=== PATIENT | male | born 1950 | race Caucasian/White ===

== ENCOUNTER 2023-03-15 15:10 | Observation (INO) ==
[2023-03-15] MEDS ORDERED: SODIUM CHLORIDE 0.9% 1,000 ML IV SCH (15:45)
--- NOTE | 2023-03-15 16:01 | XRay Report ---
XR chest 1V portable CLINICAL HISTORY: weakness COMPARISON STUDY: No previous studies for comparison. FINDINGS: Right PICC tip is within the SVC. No pneumothorax or pleural effusion is present. There is no consolidation. No evidence for pulmonary edema. Mild cardiomegaly. Mediastinal contours are otherw ise normal. IMPRESSION: No acute cardiopulmonary findings. Mild cardiomegaly. ACT 112: Negative or not required by law. Electronically signed by: Kevin Noel M.D. 03/15/2023 4:00 PM
[2023-03-15 16:22] LABS: Basophils # (auto) 0.03 K/uL (0.00-0.20); Basophils % (auto) 0.5 %; Eosinophils # (auto) 0.62 K/uL (0.00-0.50); Hematocrit (blood only) 32.2 % (42.0-52.0); Hemoglobin 11.3 g/dl (14.0-18.0); Immature Granulocytes # (auto) 0.03 K/uL (0.01-0.20); Immature Granulocytes % (auto) 0.5 %; Lymphocytes # (auto) 1.68 K/uL (1.20-3.40); Lymphocytes % (auto) 27.2 %; Mean Corpuscular Hemoglobin 30.7 pg (25.0-34.0); Mean Corpuscular Hgb Conc 35.1 g/dL (32.0-36.0); Mean Corpuscular Volume 87.5 fL (80.0-100.0); Mean Platelet Volume 9.2 fL (9.4-12.4); Monocytes # (auto) 0.58 K/uL (0.11-0.59); Monocytes % (auto) 9.4 %; Neutrophils # (auto) 3.24 K/uL (1.40-6.50); Neutrophils % (auto) 52.4 %; Platelet Count 133 K/uL (130-400); RDW Coefficient of Variation 12.9 % (11.5-14.5); RDW Standard Deviation 41.2 fL (36.4-46.3); Red Blood Count 3.68 M/uL (4.70-6.10); White Blood Count 6.18 K/ul (4.8-10.8)
[2023-03-15 16:42] LABS: Albumin Globulin Ratio 1.8 (0.9-2); Albumin Level 3.9 gm/dl (3.4-5.0); BUN Creatinine Ratio 19.5 (10-20); Bilirubin,Total 0.8 mg/dl (0.2-1.0); Creatinine Clr Calc Pharmacy 58.6 ml/min; Est GFR (Non-African American) 54.4 ml/min; Globulin 2.2 gm/dl (2.5-4.0); Magnesium 1.8 mg/dl (1.7-2.4); Total Protein 6.1 gm/dl (6.0-8.3)
--- NOTE | 2023-03-15 16:46 | CT Scan Report ---
CT OF THE HEAD WITHOUT CONTRAST CLINICAL HISTORY: Altered mental status. COMPARISON STUDY: No previous studies for comparison. CT DOSE: 705.24 mGy.cm TECHNIQUE: Helical axial images of the head were obtained without IV contrast. Automated exposure con trol was utilized for the study. A dose lowering technique was utilized adhering to the principles o f ALARA. FINDINGS: No acute intracranial hemorrhage, midline shift or mass effect is present. The ventricular system is unremarkable. The basal cisterns are patent. No extra-axial collections are present. There are no findings to suggest acute dural sinus thrombosis or acute territorial infarct. There is no acu te calvarial fracture. Small mucous retention cysts within the maxillary sinuses are incidentally not ed. There are trace secretions within the left sphenoid sinus. IMPRESSION: No acute intracranial findings. ACT 112: Negative or not required by law. Electronically signed by: Kevin Noel M.D. 03/15/2023 4:44 PM
[2023-03-15 16:47] LABS: Troponin I High Sensitivity 2.6 pg/ml (0-20)
[2023-03-15 16:57] LABS: Thyroid Stimulating Hormone 0.784 uIu/ml (0.300-4.500)
[2023-03-15 17:41] LABS: Appearance Urine Clear (Clear); Bacteria Urine Automated Negative (Negative); Bilirubin Urine Negative (Negative); Blood Urine Negative (Negative); Color Urine Yellow; Glucose Urine UA Negative (Negative); Ketones Urine Negative (Negative); Leukocyte Esterase Urine Trace (Negative); Nitrite Urine Negative (Negative); Protein Urine Negative (Negative); RBC Urine Automated 0-4 /hpf (0-4); Urobilinogen Urine Negative (Negative); pH Urine 6.5 (4.5-7.5)
[2023-03-15 17:56] LABS: Sperm Urine Present (None Prsent)
--- NOTE | 2023-03-15 18:14 | Emergency Department Note ---
Impression & Plan Acute alteration in mental status ED Provider Note CHIEF COMPLAINT: Confusion HISTORY OF PRESENT ILLNESS: This 73-year-old male patient past medical history of cellulitis/osteomyelitis of the right fourth toe presents to the emergency department with complaints of altered mental status per family. They state his speech has sounded slurred and he seems delirious at times. The patient states he sometimes thinks that his daughter is present when she is not. Patient was admitted to the [facility] about a month ago and has been on IV ertapenem via PICC line for the last 4 weeks. He has 2 weeks remaining of the course. Patient's son states they have noticed this behavior off-and-on for the last several days. Patient has great difficulty sleeping, states he walks, exercises and is fairly aggressive when he is trying to sleep. He did fall out of bed several times but he is uncertain if he hit his head. This has been going on for many years. Patient has no specific complaints at this time. REVIEW OF SYSTEMS: A review of systems was performed with positives and pert inent negatives listed in the history of present illness. 10 systems were reviewed and are otherwise negative. ALLERGIES: see below MEDICATIONS: see below PMH: see below SOCIAL HISTORY: see below DDx: Intracranial hemorrhage, stroke, metabolic abnormality, encephalopathy, dehydration, DELORIS, UTI among others PHYSICAL EXAM: Vital signs reviewed. General: Well-appearing 73-year-old male, in no significant distress. HEENT: No scleral icterus, PERRLA, neck supple. Atraumatic. Dry mucous membranes. Cardiovascular: Regular rate and rhythm, no extra sounds. Pulmonary: Clear to auscultation bilaterally, normal work of breathing. Abdomen: Soft, nontender, nondistended, positive bowel sounds. Musculoskeletal: Atraumatic, no peripheral edema. Neurologic: Patient awake alert and oriented x 3, speech is clear. Cranial nerves II through XII are grossly intact. Skin: Warm, dry, no rash EMERGENCY DEPARTMENT COURSE/MDM: Patient was evaluated and appeared to be in no significant distress. IV access was obtained and laboratory work was drawn. CT imaging of the head was performed and is negative for acute intracranial abnormality. Chest x-ray was performed and is negative for acute pathology. Laboratory work is fairly reassuring, UA is negative. We are unable to get records from clinic to the outside hospital at this hour. Given the alteration in mental status without clear etiology and recent admission/long-term IV antibiotic use, patient will be evaluated by the hospitalist service for further work-up and management. Patient and family were made aware of the plan and a greed. MONITORING: An order for cardiac monitoring was placed and the patient is noted to be in a NSR at 64 beats per minute. RADIOLOGY: Chest x-ray to my interpretation reveals no evidence of focal lung consolidation or failure, otherwise defer to radiology's overread. Head CT to my review and radiologist interpretation reveals no evidence of acute intracranial abnormality EKG: To my interpretation reveals normal sinus rhythm with first degree AV block at 60 bpm. No PVC, no PAC. Normal ST segments. QTc is 440. DISPOSITION:Admit Past Med/Surg History Medical History Anxiety CAD (coronary artery disease) Depression Gout HTN (hypertension) SHANNON (obstructive sleep apnea) Osteomyelitis REM sleep behavior disorder Surgical History H/O Spinal surgery Hx of tonsillectomy S/P appendectomy Stented coronary artery 2009 Family History Other Cancer Heart disease Prostate cancer Social History Hx Alcohol Use: No (quit ) Hx Substance Use: No Communication Ability: Effective Current Living Situation: Alone Current Living Situation Comment: home health and help from family Assistive Devices: Cane and Walker Allergies Allergies Allergy/AdvReac Type Severity Reaction Status Date / Time moxifloxacin [From Avelox] Allergy Unknown Unknown Verified 03/15/23 23:42 Home Meds Home Medications Medication Instructions Recorded Confirmed allopurinol 300 mg tablet 300 mg PO DAILY 03/15/23 03/15/23 aspirin 81 mg tablet 81 mg PO DAILY 03/15/23 03/15/23 atorvastatin 40 mg tablet 40 mg PO HS 03/15/23 03/15/23 bupropion HCl 100 mg tablet 100 mg PO DAILY 03/15/23 03/15/23 docusate sodium 100 mg capsule 100 mg PO DAILY PRN Constipation 03/15/23 03/15/23 ertapenem 1 gram intravenous 1 g IV DAILY 03/15/23 03/15/23 solution ibuprofen 800 mg tablet 800 mg PO TID pain 03/15/23 03/15/23 lisinopril 20 1 tab PO BID 03/15/23 03/15/23 mg-hydrochlorothiazide 12.5 mg tablet metoprolol succinate 50 mg 50 mg PO DAILY 03/15/23 03/15/23 tablet,extended release 24 hr omeprazole 40 mg capsule,delayed 40 mg PO DAILY 03/15/23 03/15/23 release venlafaxine 37.5 mg 37.5 mg PO DAILY 03/15/23 03/15/23 capsule,extended release 24 hr Results & Data (ED) Vital Signs Vital Signs - 24 hr 03/15/23 15:21 03/15/23 15:25 03/15/23 15:25 Temperature 36.4 C L Temperature Source Temporal Artery Scan Pulse Rate 66 Pulse Rate [Right Finger] 61 Pulse Rate from SpO2 Sensor Pulse Rhythm Pulse Rhythm [Right Finger] Regular Pulse Strength [Right Finger] Normal Respiratory Rate 18 16 Respiratory Effort / Characteristics Non-Labored Non-Labored Spontaneous Respiratory Depth Normal Normal Respiratory Pattern Regular Blood Pressure 126/79 Blood Pressure [Left Arm] 146/91 H Blood Pressure Mean 94 Blood Pressure Mean [Left Arm] 109 Blood Pressure Position [Left Arm] Lying Pulse Oximetry 94 96 97 Oxygen Delivery Method Room Air Room Air Room Air Oxygen Flow Rate 0 Sepsis Recent Fever Within 48 Hours No Sepsis New/Unexplained Change in Mental Status No Sepsis Action Taken by Nursing No Action Required 03/15/23 16:00 03/15/23 15:50 03/15/23 15:52 Temperature Temperature Source Pulse Rate 64 57 L 59 L Pulse Rate [Right Finger] Pulse Rate from SpO2 Sensor 61 Pulse Rhythm Regular Pulse Rhythm [Right Finger] Pulse Strength [Right Finger] Respiratory Rate 16 Respiratory Effort / Characteristics Respiratory Depth Respiratory Pattern Blood Pressure Blood Pressure [Left Arm] Blood Pressure Mean Blood Pressure Mean [Left Arm] Blood Pressure Position [Left Arm] Pulse Oximetry 97 98 Oxygen Delivery Method Room Air Oxygen Flow Rate Sepsis Recent Fever Within 48 Hours Sepsis New/Unexplained Change in Mental Status Sepsis Action Taken by Nursing 03/15/23 16:00 03/15/23 16:10 03/15/23 16:20 Temperature Temperature Source Pulse Rate 61 60 59 L Pulse Rate [Right Finger] Pulse Rate from SpO2 Sensor 61 60 59 L Pulse Rhythm Pulse Rhythm [Right Finger] Pulse Strength [Right Finger] Respiratory Rate 16 14 16 Respiratory Effort / Characteristics Respiratory Depth Respiratory Pattern Blood Pressure 141/83 H Blood Pressure [Left Arm] Blood Pressure Mean 102 Blood Pressure Mean [Left Arm] Blood Pressure Position [Left Arm] Pulse Oximetry 97 95 97 Oxygen Delivery Method Oxygen Flow Rate Sepsis Recent Fever Within 48 Hours Sepsis New/Unexplained Change in Mental Status Sepsis Action Taken by Nursing 03/15/23 16:36 03/15/23 16:37 03/15/23 16:40 Temperature Temperature Source Pulse Rate 61 59 L 59 L Pulse Rate [Right Finger] Pulse Rate from SpO2 Sensor 59 L 60 Pulse Rhythm Pulse Rhythm [Right Finger] Pulse Strength [Right Finger] Respiratory Rate 11 L 17 16 Respiratory Effort / Characteristics Respiratory Depth Respiratory Pattern Blood Pressure 158/69 H Blood Pressure [Left Arm] Blood Pressure Mean 98 Blood Pressure Mean [Left Arm] Blood Pressure Position [Left Arm] Pulse Oximetry 97 97 Oxygen Delivery Method Oxygen Flow Rate Sepsis Recent Fever Within 48 Hours Sepsis New/Unexplained Change in Mental Status Sepsis Action Taken by Nursing 03/15/23 16:50 03/15/23 17:00 03/15/23 17:10 Temperature Temperature Source Pulse Rate 60 61 61 Pulse Rate [Right Finger] Pulse Rate from SpO2 Sensor 59 L 58 L Pulse Rhythm Pulse Rhythm [Right Finger] Pulse Strength [Right Finger] Respiratory Rate 16 20 19 Respiratory Effort / Characteristics Respiratory Depth Respiratory Pattern Blood Pressure 116/76 Blood Pressure [Left Arm] Blood Pressure Mean 89 Blood Pressure Mean [Left Arm] Blood Pressure Position [Left Arm] Pulse Oximetry 98 96 Oxygen Delivery Method Oxygen Flow Rate Sepsis Recent Fever Within 48 Hours Sepsis New/Unexplained Change in Mental Status Sepsis Action Taken by Nursing 03/15/23 17:20 Temperature Temperature Source Pulse Rate 57 L Pulse Rate [Right Finger] Pulse Rate from SpO2 Sensor 58 L Pulse Rhythm Pulse Rhythm [Right Finger] Pulse Strength [Right Finger] Respiratory Rate 17 Respiratory Effort / Characteristics Respiratory Depth Respiratory Pattern Blood Pressure Blood Pressure [Left Arm] Blood Pressure Mean Blood Pressure Mean [Left Arm] Blood Pressure Position [Left Arm] Pulse Oximetry 97 Oxygen Delivery Method Oxygen Flow Rate Sepsis Recent Fever Within 48 Hours Sepsis New/Unexplained Change in Mental Status Sepsis Action Taken by Half-Way Medications Current Medication List: was personally reviewed by me Laboratory Data Attestation: I reviewed the patient's lab results. 03/15/23 15:50 03/15/23 15:50 Lab Results 03/15/23 03/15/2303/15/23 Range/Units 15:50 15:50 16:34 WBC 6.18 (4.8-10.8) K/ul RBC 3.68 L (4.70-6.10) M/uL Hgb 11.3 L (14.0-18.0) g/dl Hct 32.2 L (42.0-52.0) % MCV 87.5 (80.0-100.0) fL MCH 30.7 (25.0-34.0) pg MCHC 35.1 (32.0-36.0) g/dL RDW Std Deviation 41.2 (36.4-46.3) fL RDW Coeff of Favio 12.9 (11.5-14.5) % Plt Count 133 (130-400) K/uL MPV 9.2 L (9.4-12.4) fL Immature Gran % (Auto) 0.5 % Neut % (Auto) 52.4 % Lymph % (Auto) 27.2 % [place] % (Auto) 9.4 % Eos % (Auto) 10.0 % Baso % (Auto) 0.5 % Neut # (Auto) 3.24 (1.40-6.50) K/uL Lymph # (Auto) 1.68 (1.20-3.40) K/uL [place] # (Auto) 0.58 (0.11-0.59) K/uL Eos # (Auto) 0.62 H (0.00-0.50) K/uL Baso # (Auto) 0.03 (0.00-0.20) K/uL Immature Gran # (Auto) 0.03 (0.01-0.20) K/uL ESR (0-20) mm/hr ABG pH ABG pCO2 ABG pO2 ABG HCO3 ABG O2 Saturation ABG Base Excess Werner Test Barometric Pressure Oxygen Given Sodium 138 (136-145) mmol/L Potassium 4.0 (3.5-5.1) mmol/L Chloride 104 (98-107) mmol/L Carbon Dioxide 28 (21-32) mmol/L Anion Gap 6 (3-11) BUN 25 H (6-23) mg/dl Creatinine 1.28 (0.6-1.4) mg/dl Est Cr Clr Drug Dosing 58.6 ml/min Est GFR ( Amer) 63.0 ml/min Est GFR (Non-Af Amer) 54.4 ml/min BUN/Creatinine Ratio 19.5 (10-20) Glucose 97 (70-99(Fasting)) mg/dl Calcium 9.0 (8.6-10.3) mg/dl Ionized Calcium (1.12-1.32) mmol/L Phosphorus (2.5-4.9) mg/dl Magnesium 1.8 (1.7-2.4) mg/dl Total Bilirubin 0.8 (0.2-1.0) mg/dl AST 16 (13-39) U/L ALT 18 (7-52) U/L Alkaline Phosphatase 131 H (34-104) U/L Ammonia (18-72) umol/L Troponin I High Sens 2.6 (0-20) pg/ml C-Reactive Protein (0-0.5) mg/dl Total Protein 6.1 (6.0-8.3) gm/dl Albumin 3.9 (3.4-5.0) gm/dl Globulin 2.2 L (2.5-4.0) gm/dl Albumin/Globulin Ratio 1.8 (0.9-2) Vitamin B12 (180-914) pg/ml Folate (>5.38) ng/ml TSH 0.784 (0.300-4.500) uIu/ml Urine Color Urine Appearance (Clear) Urine pH (4.5-7.5) Ur Specific [place] (1.000-1.030) Urine Protein (Negative) Urine Glucose (UA) (Negative) Urine Ketones (Negative) Urine Blood (Negative) Urine Nitrite (Negative) Urine Bilirubin (Negative) Urine Urobilinogen (Negative) Ur Leukocyte Esterase (Negative) Urine WBC (Auto) (0-5) /hpf Urine RBC (Auto) (0-4) /hpf U Hyaline Cast (Auto) (0-5) /lpf U Epithel Cells (Auto) (0-5) /lpf Urine Bacteria (Auto) (Negative) Urine Sperm (None Prsent) SARS-CoV-2 (PCR) NEGATIVE (Negative) 03/15/23 03/15/23 03/15/23 Range/Units 17:17 18:35 18:35 WBC (4.8-10.8) K/ul RBC (4.70-6.10) M/uL Hgb (14.0-18.0) g/dl Hct (42.0-52.0) % MCV (80.0-100.0) fL MCH (25.0-34.0) pg MCHC (32.0-36.0) g/dL RDW Std Deviation (36.4-46.3) fL RDW Coeff of Favio (11.5-14.5) % Plt Count (130-400) K/uL MPV (9.4-12.4) fL Immature Gran % (Auto) % Neut % (Auto) % Lymph % (Auto) % [place] % (Auto) % Eos % (Auto) % Baso % (Auto) % Neut # (Auto) (1.40-6.50) K/uL Lymph # (Auto) (1.20-3.40) K/uL [place] # (Auto) (0.11-0.59) K/uL Eos # (Auto) (0.00-0.50) K/uL Baso # (Auto) (0.00-0.20) K/uL Immature Gran # (Auto) (0.01-0.20) K/uL ESR (0-20) mm/hr ABG pH Cancelled ABG pCO2 Cancelled ABG pO2 Cancelled ABG HCO3 Cancelled ABG O2 Saturation Cancelled ABG Base Excess Cancelled Werner Test Cancelled Barometric Pressure Cancelled Oxygen Given Cancelled Sodium (136-145) mmol/L Potassium (3.5-5.1) mmol/L Chloride (98-107) mmol/L Carbon Dioxide (21-32) mmol/L Anion Gap (3-11) BUN (6-23) mg/dl Creatinine (0.6-1.4) mg/dl Est Cr Clr Drug Dosing ml/min Est GFR ( Amer) ml/min Est GFR (Non-Af Amer) ml/min BUN/Creatinine Ratio (10-20) Glucose (70-99(Fasting)) mg/dl Calcium (8.6-10.3) mg/dl Ionized Calcium (1.12-1.32) mmol/L Phosphorus (2.5-4.9) mg/dl Magnesium (1.7-2.4) mg/dl Total Bilirubin (0.2-1.0) mg/dl AST (13-39) U/L ALT (7-52) U/L Alkaline Phosphatase (34-104) U/L Ammonia 39.0 (18-72) umol/L Troponin I High Sens (0-20) pg/ml C-Reactive Protein (0-0.5) mg/dl Total Protein (6.0-8.3) gm/dl Albumin (3.4-5.0) gm/dl Globulin (2.5-4.0) gm/dl Albumin/Globulin Ratio (0.9-2) Vitamin B12 (180-914) pg/ml Folate (>5.38) ng/ml TSH (0.300-4.500) uIu/ml Urine Color Yellow Urine Appearance Clear (Clear) Urine pH 6.5 (4.5-7.5) Ur Specific [place] 1.010 (1.000-1.030) Urine Protein Negative (Negative) Urine Glucose (UA) Negative (Negative) Urine Ketones Negative (Negative) Urine Blood Negative (Negative) Urine Nitrite Negative (Negative) Urine Bilirubin Negative (Negative) Urine Urobilinogen Negative (Negative) Ur Leukocyte Esterase Trace H (Negative) Urine WBC (Auto) 5-10 H (0-5) /hpf Urine RBC (Auto) 0-4 (0-4) /hpf U Hyaline Cast (Auto) 1-5 (0-5) /lpf U Epithel Cells (Auto) 10-20 H (0-5) /lpf Urine Bacteria (Auto) Negative (Negative) Urine Sperm Present A (None Prsent) SARS-CoV-2 (PCR) (Negative) 03/15/23 03/16/23 03/16/23 Range/Units 19:43 07:10 07:10 WBC (4.8-10.8) K/ul RBC (4.70-6.10) M/uL Hgb (14.0-18.0) g/dl Hct (42.0-52.0) % MCV (80.0-100.0) fL MCH (25.0-34.0) pg MCHC (32.0-36.0) g/dL RDW Std Deviation (36.4-46.3) fL RDW Coeff of Favio (11.5-14.5) % Plt Count (130-400) K/uL MPV (9.4-12.4) fL Immature Gran % (Auto) % Neut % (Auto) % Lymph % (Auto) % [place] % (Auto) % Eos % (Auto) % Baso % (Auto) % Neut # (Auto) (1.40-6.50) K/uL Lymph # (Auto) (1.20-3.40) K/uL [place] # (Auto) (0.11-0.59) K/uL Eos # (Auto) (0.00-0.50) K/uL Baso # (Auto) (0.00-0.20) K/uL Immature Gran # (Auto) (0.01-0.20) K/uL ESR 11 (0-20) mm/hr ABG pH 7.42 ABG pCO2 42 ABG pO2 78 L ABG HCO3 27 H ABG O2 Saturation 97.0 H ABG Base Excess 2.4 H Werner Test Pos Barometric Pressure Oxygen Given ROOM AIR Sodium 140 (136-145) mmol/L Potassium 3.9 (3.5-5.1) mmol/L Chloride 106 (98-107) mmol/L Carbon Dioxide 27 (21-32) mmol/L Anion Gap 7 (3-11) BUN 23 (6-23) mg/dl Creatinine 1.16 (0.6-1.4) mg/dl Est Cr Clr Drug Dosing 64.6 ml/min Est GFR ( Amer) 71.0 ml/min Est GFR (Non-Af Amer) 61.3 ml/min BUN/Creatinine Ratio 19.8 (10-20) Glucose 98 (70-99(Fasting)) mg/dl Calcium 9.2 (8.6-10.3) mg/dl Ionized Calcium (1.12-1.32) mmol/L Phosphorus (2.5-4.9) mg/dl Magnesium (1.7-2.4) mg/dl Total Bilirubin (0.2-1.0) mg/dl AST (13-39) U/L ALT (7-52) U/L Alkaline Phosphatase (34-104) U/L Ammonia (18-72) umol/L Troponin I High Sens (0-20) pg/ml C-Reactive Protein < 0.50 (0-0.5) mg/dl Total Protein (6.0-8.3) gm/dl Albumin (3.4-5.0) gm/dl Globulin (2.5-4.0) gm/dl Albumin/Globulin Ratio (0.9-2) Vitamin B12 (180-914) pg/ml Folate (>5.38) ng/ml TSH (0.300-4.500) uIu/ml Urine Color Urine Appearance (Clear) Urine pH (4.5-7.5) Ur Specific [place] (1.000-1.030) Urine Protein (Negative) Urine Glucose (UA) (Negative) Urine Ketones (Negative) Urine Blood (Negative) Urine Nitrite (Negative) Urine Bilirubin (Negative) Urine Urobilinogen (Negative) Ur Leukocyte Esterase (Negative) Urine WBC (Auto) (0-5) /hpf Urine RBC (Auto) (0-4) /hpf U Hyaline Cast (Auto) (0-5) /lpf U Epithel Cells (Auto) (0-5) /lpf Urine Bacteria (Auto) (Negative) Urine Sperm (None Prsent) SARS-CoV-2 (PCR) (Negative) 03/16/23 03/17/23 03/17/23 Range/Units 07:10 06:02 06:02 WBC 7.17 6.95 (4.8-10.8) K/ul RBC 3.71 L 3.68 L (4.70-6.10) M/uL Hgb 11.3 L 11.2 L (14.0-18.0) g/dl Hct 31.9 L 32.5 L (42.0-52.0) % MCV 86.0 88.3 (80.0-100.0) fL MCH 30.5 30.4 (25.0-34.0) pg MCHC 35.4 34.5 (32.0-36.0) g/dL RDW Std Deviation 40.1 41.3 (36.4-46.3) fL RDW Coeff of Favio 12.9 12.7 (11.5-14.5) % Plt Count 151 126 L (130-400) K/uL MPV 9.4 9.2 L (9.4-12.4) fL Immature Gran % (Auto) 0.1 % Neut % (Auto) 53.2 % Lymph % (Auto) 27.3 % [place] % (Auto) 7.9 % Eos % (Auto) 11.1 % Baso % (Auto) 0.4 % Neut # (Auto) 3.69 (1.40-6.50) K/uL Lymph # (Auto) 1.90 (1.20-3.40) K/uL [place] # (Auto) 0.55 (0.11-0.59) K/uL Eos # (Auto) 0.77 H (0.00-0.50) K/uL Baso # (Auto) 0.03 (0.00-0.20) K/uL Immature Gran # (Auto) 0.01 (0.01-0.20) K/uL ESR (0-20) mm/hr ABG pH ABG pCO2 ABG pO2 ABG HCO3 ABG O2 Saturation ABG Base Excess Werner Test Barometric Pressure Oxygen Given Sodium 140 (136-145) mmol/L Potassium 3.8 (3.5-5.1) mmol/L Chloride 106 (98-107) mmol/L Carbon Dioxide 27 (21-32) mmol/L Anion Gap 7 (3-11) BUN 20 (6-23) mg/dl Creatinine 1.20 (0.6-1.4) mg/dl Est Cr Clr Drug Dosing 62.5 ml/min Est GFR ( Amer) 68.1 ml/min Est GFR (Non-Af Amer) 58.8 ml/min BUN/Creatinine Ratio 16.7 (10-20) Glucose 98 (70-99(Fasting)) mg/dl Calcium 9.2 (8.6-10.3) mg/dl Ionized Calcium (1.12-1.32) mmol/L Phosphorus 3.0 (2.5-4.9) mg/dl Magnesium 1.9 (1.7-2.4) mg/dl Total Bilirubin 1.0 (0.2-1.0) mg/dl AST 17 (13-39) U/L ALT 16 (7-52) U/L Alkaline Phosphatase 123 H (34-104) U/L Ammonia (18-72) umol/L Troponin I High Sens (0-20) pg/ml C-Reactive Protein (0-0.5) mg/dl Total Protein 6.0 (6.0-8.3) gm/dl Albumin 3.9 (3.4-5.0) gm/dl Globulin 2.1 L (2.5-4.0) gm/dl Albumin/Globulin Ratio 1.9 (0.9-2) Vitamin B12 (180-914) pg/ml Folate (>5.38) ng/ml TSH (0.300-4.500) uIu/ml Urine Color Urine Appearance (Clear) Urine pH (4.5-7.5) Ur Specific [place] (1.000-1.030) Urine Protein (Negative) Urine Glucose (UA) (Negative) Urine Ketones (Negative) Urine Blood (Negative) Urine Nitrite (Negative) Urine Bilirubin (Negative) Urine Urobilinogen (Negative) Ur Leukocyte Esterase (Negative) Urine WBC (Auto) (0-5) /hpf Urine RBC (Auto) (0-4) /hpf U Hyaline Cast (Auto) (0-5) /lpf U Epithel Cells (Auto) (0-5) /lpf Urine Bacteria (Auto) (Negative) Urine Sperm (None Prsent) SARS-CoV-2 (PCR) (Negative) 03/17/23 03/17/23 Range/Units 06:02 06:02 WBC (4.8-10.8) K/ul RBC (4.70-6.10) M/uL Hgb (14.0-18.0) g/dl Hct (42.0-52.0) % MCV (80.0-100.0) fL MCH (25.0-34.0) pg MCHC (32.0-36.0) g/dL RDW Std Deviation (36.4-46.3) fL RDW Coeff of Favio (11.5-14.5) % Plt Count (130-400) K/uL MPV (9.4-12.4) fL Immature Gran % (Auto) % Neut % (Auto) % Lymph % (Auto) % [place] % (Auto) % Eos % (Auto) % Baso % (Auto) % Neut # (Auto) (1.40-6.50) K/uL Lymph # (Auto) (1.20-3.40) K/uL [place] # (Auto) (0.11-0.59) K/uL Eos # (Auto) (0.00-0.50) K/uL Baso # (Auto) (0.00-0.20) K/uL Immature Gran # (Auto) (0.01-0.20) K/uL ESR (0-20) mm/hr ABG pH ABG pCO2 ABG pO2 ABG HCO3 ABG O2 Saturation ABG Base Excess Werner Test Barometric Pressure Oxygen Given Sodium (136-145) mmol/L Potassium (3.5-5.1) mmol/L Chloride (98-107) mmol/L Carbon Dioxide (21-32) mmol/L Anion Gap (3-11) BUN (6-23) mg/dl Creatinine (0.6-1.4) mg/dl Est Cr Clr Drug Dosing ml/min Est GFR ( Amer) ml/min Est GFR (Non-Af Amer) ml/min BUN/Creatinine Ratio (10-20) Glucose (70-99(Fasting)) mg/dl Calcium (8.6-10.3) mg/dl Ionized Calcium 1.23 (1.12-1.32) mmol/L Phosphorus (2.5-4.9) mg/dl Magnesium (1.7-2.4) mg/dl Total Bilirubin (0.2-1.0) mg/dl AST (13-39) U/L ALT (7-52) U/L Alkaline Phosphatase (34-104) U/L Ammonia (18-72) umol/L Troponin I High Sens (0-20) pg/ml C-Reactive Protein (0-0.5) mg/dl Total Protein (6.0-8.3) gm/dl Albumin (3.4-5.0) gm/dl Globulin (2.5-4.0) gm/dl Albumin/Globulin Ratio (0.9-2) Vitamin B12 268 (180-914) pg/ml Folate 15.80 (>5.38) ng/ml TSH (0.300-4.500) uIu/ml Urine Color Urine Appearance (Clear) Urine pH (4.5-7.5) Ur Specific [place] (1.000-1.030) Urine Protein (Negative) Urine Glucose (UA) (Negative) Urine Ketones (Negative) Urine Blood (Negative) Urine Nitrite (Negative) Urine Bilirubin (Negative) Urine Urobilinogen (Negative) Ur Leukocyte Esterase (Negative) Urine WBC (Auto) (0-5) /hpf Urine RBC (Auto) (0-4) /hpf U Hyaline Cast (Auto) (0-5) /lpf U Epithel Cells (Auto) (0-5) /lpf Urine Bacteria (Auto) (Negative) Urine Sperm (None Prsent) SARS-CoV-2 (PCR) (Negative) Administered Medications Acetaminophen (Acetaminophen 325 Mg Tab) 650 mg PO Q4H PRN PRN Reason: Pain or Fever Stop: 04/14/23 21:43 Last Admin: 03/21/23 08:28 Dose: 650 mg Documented By: [id number] Admin: 03/19/23 23:56 Dose: 650 mg Documented By: Admin: 03/18/23 08:48 Dose: 650 mg Documented By: AUSTIN Albuterol (Albut/Ipratrop 3mg/0.5mg Neb 3 Ml Vial) 3 ml NEB Q4R PRN; Protocol PRN Reason: Shortness Of Breath Or Wheezing Stop: 04/18/23 22:59 Last Admin: 03/20/23 00:29 Dose: 3 ml Documented By: ABDOULAYE Allopurinol (Allopurinol 300 Mg Tab) 300 mg PO DAILY MARCIN Stop: 04/15/23 08:59 Last Admin: 03/22/23 08:28 Dose: 300 mg Documented By: JOSE R Admin: 03/21/23 08:29 Dose: 300 mg Documented By: [id number] Admin: 03/20/23 08:47 Dose: 300 mg Documented By: Admin: 03/19/23 07:49 Dose: 300 mg Documented By: Admin: 03/18/23 08:49 Dose: 300 mg Documented By: Admin: 03/17/23 08:34 Dose: 300 mg Documented By: Admin: 03/16/23 08:11 Dose: 300 mg Documented By: STEPH Aspirin (Aspirin 81 Mg Ectab) 81 mg PO DAILY MARCIN Stop: 04/15/23 08:59 Last Admin: 03/22/23 08:28 Dose: 81 mg Documented By: JOSE R Admin: 03/21/23 08:29 Dose: 81 mg Documented By: [id number] Admin: 03/20/23 08:47 Dose: 81 mg Documented By: Admin: 03/19/23 07:49 Dose: 81 mg Documented By: Admin: 03/18/23 08:50 Dose: 81 mg Documented By: Admin: 03/17/23 08:34 Dose: 81 mg Documented By: Admin: 03/16/23 08:10 Dose: 81 mg Documented By: STEPH Atorvastatin Calcium (Atorvastatin 40 Mg Tab) 40 mg PO HS MARCIN Stop: 04/14/23 21:43 Last Admin: 03/21/23 20:36 Dose: 40 mg Documented By: Admin: 03/20/23 20:41 Dose: 40 mg Documented By: Admin: 03/19/23 20:58 Dose: 40 mg Documented By: Admin: 03/18/23 20:18 Dose: 40 mg Documented By: Admin: 03/17/23 22:15 Dose: 40 mg Documented By: Admin: 03/16/23 21:39 Dose: 40 mg Documented By: Admin: 03/16/23 01:00 Dose: 40 mg Documented By: ABEL Benzonatate (Benzonatate 100 Mg Capsule) 100 mg PO TID MARCIN Stop: 04/19/23 15:29 Last Admin: 03/22/23 14:15 Dose: 100 mg Documented By: JOSE R Admin: 03/22/23 08:28 Dose: 100 mg Documented By: JOSE R Admin: 03/21/23 20:35 Dose: 100 mg Documented By: Admin: 03/21/23 14:36 Dose: Not Given Documented By: [id number] Admin: 03/21/23 08:29 Dose: 100 mg Documented By: [id number] Admin: 03/20/23 20:41 Dose: 100 mg Documented By: Admin: 03/20/23 16:55 Dose: 100 mg Documented By: AUSTIN Bupropion HCl (Bupropion Hcl 100 Mg Tablet) 100 mg PO DAILY MARCIN Stop: 04/20/23 11:14 Last Admin: 03/22/23 08:28 Dose: 100 mg Documented By: JOSE R Admin: 03/21/23 12:36 Dose: 100 mg Documented By: [id number] Cyanocobalamin (Cyanocobalamin (B-12) 500 Mcg Tablet) 1,000 mcg PO QAM MARCIN Stop: 04/17/23 08:59 Last Admin: 03/22/23 08:28 Dose: 1,000 mcg Documented By: JOSE R Admin: 03/21/23 08:29 Dose: 1,000 mcg Documented By: [id number] Admin: 03/20/23 08:48 Dose: 1,000 mcg Documented By: Admin: 03/19/23 07:50 Dose: 1,000 mcg Documented By: Admin: 03/18/23 08:49 Dose: 1,000 mcg Documented By: AUSTIN Docusate Sodium (Docusate Sodium 100 Mg Cap) 100 mg PO DAILY PRN PRN Reason: Constipation Stop: 04/14/23 21:43 Last Admin: 03/21/23 08:29 Dose: 100 mg Documented By: [id number] Enoxaparin Sodium (Enoxaparin Inj 40 Mg/0.4 Ml Syr) 40 mg SQ Q24H MARCIN Stop: 04/15/23 08:59 Last Admin: 03/17/23 08:35 Dose: 40 mg Documented By: Admin: 03/16/23 08:11 Dose: 40 mg Documented By: STEPH Ergocalciferol (Ergocalciferol 50,000 Units 1250 Mcg Cap) 50,000 units PO Q7D@0900 MARCIN Stop: 04/18/23 08:59 Last Admin: 03/19/23 07:50 Dose: 50,000 units Documented By: AUSTIN Guaifenesin (Guaifenesin 600 Mg Tabcr) 600 mg PO Q12 MARCIN Stop: 04/18/23 13:59 Last Admin: 03/22/23 08:29 Dose: 600 mg Documented By: Admin: 03/21/23 20:36 Dose: 600 mg Documented By: Admin: 03/21/23 08:29 Dose: 600 mg Documented By: [id number] Admin: 03/20/23 20:41 Dose: 600 mg Documented By: Admin: 03/20/23 08:48 Dose: 600 mg Documented By: Admin: 03/19/23 20:57 Dose: 600 mg Documented By: Admin: 03/19/23 14:41 Dose: 600 mg Documented By: AUSTIN Heparin Sodium (Beef Lung) (Heparin 10 Unit/Ml 5 Ml Flush) 5 ml FLUSH PRN PRN PRN Reason: Flush Stop: 04/16/23 10:24 Last Admin: 03/22/23 10:51 Dose: 5 ml Documented By: Admin: 03/21/23 08:29 Dose: 5 ml Documented By: [id number] Hydrochlorothiazide (Hydrochlorothiazide 25 Mg Tab) 12.5 mg PO QAM MARCIN Stop: 04/16/23 08:59 Last Admin: 03/17/23 09:32 Dose: 12.5 mg Documented By: POLLO Lisinopril (Lisinopril 20 Mg Tab) 20 mg PO BID MARCIN Stop: 04/15/23 08:59 Last Admin: 03/22/23 08:29 Dose: 20 mg Documented By: JOSE R Admin: 03/21/23 20:37 Dose: 20 mg Documented By: Admin: 03/17/23 22:14 Dose: Not Given Documented By: Admin: 03/17/23 08:33 Dose: 20 mg Documented By: Admin: 03/16/23 21:39 Dose: 20 mg Documented By: Admin: 03/16/23 08:11 Dose: 20 mg Documented By: STEPH Melatonin (Melatonin 3 Mg Tab) 3 mg PO HS MARCIN Stop: 04/20/23 20:59 Last Admin: 03/21/23 20:36 Dose: 3 mg Documented By: HUMBERTO Menthol (Cough Drop (Sugar Free) Sebas 24 Sebas/1 Box) 1 sebas BUCCAL Q2H PRN PRN Reason: Sore Throat Stop: 04/19/23 15:41 Last Admin: 03/20/23 15:59 Dose: 1 sebas Documented By: AUSTIN Metoprolol Succinate (Metoprolol Succ 50mg Ext Rel Tab) 50 mg PO DAILY MARCIN Stop: 04/15/23 08:59 Last Admin: 03/22/23 08:29 Dose: 50 mg Documented By: JOSE R Admin: 03/21/23 08:29 Dose: 50 mg Documented By: [id number] Admin: 03/20/23 08:48 Dose: 50 mg Documented By: Admin: 03/19/23 07:49 Dose: 50 mg Documented By: Admin: 03/18/23 08:55 Dose: 50 mg Documented By: Admin: 03/17/23 08:34 Dose: 50 mg Documented By: Admin: 03/16/23 08:11 Dose: 50 mg Documented By: STEPH Pantoprazole Sodium (Pantoprazole 40 Mg Tab) 40 mg PO DAILY MARCIN Stop: 04/15/23 08:59 Last Admin: 03/22/23 08:29 Dose: 40 mg Documented By: JOSE R Admin: 03/21/23 08:30 Dose: 40 mg Documented By: [id number] Admin: 03/20/23 08:49 Dose: 40 mg Documented By: Admin: 03/19/23 07:49 Dose: 40 mg Documented By: Admin: 03/18/23 08:49 Dose: 40 mg Documented By: Admin: 03/17/23 08:33 Dose: 40 mg Documented By: Admin: 03/16/23 08:10 Dose: 40 mg Documented By: STEPH Polyethylene Glycol (Polyethylene (Miralax) 17 Gm Pack) 17 gm PO DAILY PRN PRN Reason: Constipation Stop: 04/14/23 21:43 Last Admin: 03/21/23 08:30 Dose: 17 gm Documented By: [id number] Sodium Chloride (Sodium Chloride 0.65% Na Soln 45 Ml ([place])) 1 sprays NA BID MARCIN Stop: 04/19/23 15:44 Last Admin: 03/22/23 08:29 Dose: 1 sprays Documented By: JOSE R Admin: 03/21/23 20:37 Dose: 1 sprays Documented By: Admin: 03/21/23 08:30 Dose: 1 sprays Documented By: [id number] Admin: 03/20/23 20:41 Dose: 1 sprays Documented By: Admin: 03/20/23 16:55 Dose: 1 sprays Documented By: AUSTIN Venlafaxine HCl (Venlafaxine Hcl Xr 37.5 Mg Capxr) 37.5 mg PO DAILY MARCIN Stop: 04/15/23 08:59 Last Admin: 03/22/23 08:29 Dose: 37.5 mg Documented By: JOSE R Admin: 03/21/23 08:30 Dose: 37.5 mg Documented By: [id number] Admin: 03/20/23 08:49 Dose: 37.5 mg Documented By: Admin: 03/19/23 07:49 Dose: 37.5 mg Documented By: Admin: 03/18/23 08:49 Dose: 37.5 mg Documented By: Admin: 03/17/23 08:33 Dose: 37.5 mg Documented By: Admin: 03/16/23 08:11 Dose: 37.5 mg Documented By: STEPH Discontinued Medications Bupropion HCl (Bupropion Hcl 100 Mg Tablet) 100 mg PO DAILY MARCIN Stop: 04/15/23 08:59 Last Admin: 03/17/23 08:34 Dose: 100 mg Documented By: Admin: 03/16/23 08:11 Dose: 100 mg Documented By: STEPH Haloperidol Lactate (Haloperidol Lactate 5 Mg/Ml 1 Ml Vial) 2.5 mg IM NOW STA Stop: 03/20/23 23:32 Last Admin: 03/21/23 00:08 Dose: 2.5 mg Documented By: VIV Hydralazine HCl (Hydralazine Hcl 20 Mg/Ml Vial) 5 mg IV NOW ONE Stop: 03/21/23 07:35 Last Admin: 03/21/23 08:23 Dose: 5 mg Documented By: [id number] Hydroxyzine HCl (Hydroxyzine Hcl 25 Mg Tab) 25 mg PO NOW STA Stop: 03/21/23 07:36 Last Admin: 03/21/23 08:29 Dose: 25 mg Documented By: [id number] Sodium Chloride (Nss) 1,000 mls @ 125 mls/hr IV .Q8H MARCIN Stop: 03/15/23 23:44 Last Infusion: 03/15/23 23:55 Dose: 0 mls/hr Documented By: Admin: 03/15/23 16:42 Dose: 125 mls/hr Documented By: LAZARA Lactated Ringer's (Lr) 1,000 mls @ 100 mls/hr IV .Q10H MARCIN Stop: 03/16/23 07:43 Last Infusion: 03/16/23 08:21 Dose: 0 mls/hr Documented By: Admin: 03/16/23 02:07 Dose: 100 mls/hr Documented By: ABEL Ertapenem 1,000 mg/ Syringe 10 mls @ 2 mls/min IV Q24H MARCIN Stop: 04/27/23 08:59 Last Admin: 03/17/23 08:35 Dose: 2 mls/min Documented By: Admin: 03/16/23 08:14 Dose: 2 mls/min Documented By: STEPH Sodium Chloride (Nss) 1,000 mls @ 100 mls/hr IV .Q10H ONE Stop: 03/18/23 05:53 Last Infusion: 03/18/23 07:30 Dose: 0 mls/hr Documented By: Admin: 03/17/23 22:15 Dose: 100 mls/hr Documented By: ABEL Magnesium Sulfate/Dextrose (Magnesium Sulfate / D5w) 1 gm in 100 mls @ 50 mls/hr IV ONE ONE Stop: 03/17/23 21:54 Last Infusion: 03/18/23 00:35 Dose: 0 mls/hr Documented By: Admin: 03/17/23 22:15 Dose: 50 mls/hr Documented By: ABEL Sodium Chloride (Nss) 1,000 mls @ 80 mls/hr IV .[id number] MARCIN Stop: 04/18/23 13:59 Last Infusion: 03/20/23 15:46 Dose: 0 mls/hr Documented By: Admin: 03/20/23 14:02 Dose: 80 mls/hr Documented By: Infusion: 03/20/23 14:02 Dose: 80 mls/hr Documented By: Admin: 03/20/23 01:59 Dose: 80 mls/hr Documented By: Infusion: 03/20/23 01:59 Dose: 80 mls/hr Documented By: Admin: 03/19/23 14:46 Dose: 80 mls/hr Documented By: AUSTIN Magnesium Sulfate/Dextrose (Magnesium Sulfate / D5w) 1 gm in 100 mls @ 50 mls/hr IV ONE ONE Stop: 03/20/23 10:52 Last Infusion: 03/20/23 11:39 Dose: 0 mls/hr Documented By: Admin: 03/20/23 09:32 Dose: 50 mls/hr Documented By: AUSTIN Famotidine 20 mg/ Syringe 5 mls @ 2.5 mls/min IV NOW ONE Stop: 03/20/23 15:45 Last Admin: 03/20/23 16:55 Dose: 2.5 mls/min Documented By: AUSTIN Lisinopril (Lisinopril 20 Mg Tab) 20 mg PO NOW ONE Stop: 03/15/23 19:38 Last Admin: 03/15/23 20:22 Dose: 20 mg Documented By: SHANNAN Melatonin (Melatonin 3 Mg Tab) 3 mg PO ONE ONE Stop: 03/21/23 11:01 Last Admin: 03/21/23 12:36 Dose: 3 mg Documented By: [id number] Miscellaneous Information (Patient's Allergy Info Needs Entered) 1 each N/A ONE STA Stop: 03/15/23 21:49 Last Admin: 03/15/23 23:51 Dose: 1 each Documented By: TRN Imaging Data Radiologist's Impression: Chest X-Ray 03/15/23 15:44 XR chest 1V portable CLINICAL HISTORY: weakness COMPARISON STUDY: No previous studies for comparison. FINDINGS: Right PICC tip is within the SVC. No pneumothorax or pleural effusion is present. There is no consolidation. No evidence for pulmonary edema. Mild cardiomegaly. Mediastinal contours are otherwise normal. IMPRESSION: No acute cardiopulmonary findings. Mild cardiomegaly. ACT 112: Negative or not required by law. Electronically signed by: Kevin Noel M.D. 03/15/2023 4:[address] 03/15/23 15:50 CT OF THE HEAD WITHOUT CONTRAST CLINICAL HISTORY: Altered mental status. COMPARISON STUDY: No previous studies for comparison. CT DOSE: 705.24 mGy.cm TECHNIQUE: Helical axial images of the head were obtained without IV contrast. Automated exposure control was utilized for the study. A dose lowering technique was utilized adhering to the principles of ALARA. FINDINGS: No acute intracranial hemorrhage, midline shift or mass effect is present. The ventricular system is unremarkable. The basal cisterns are patent. No extra-axial collections are present. There are no findings to suggest acute dural sinus thrombosis or acute territorial infarct. There is no acute calvarial fracture. Small mucous retention cysts within the maxillary sinuses are incid entally noted. There are trace secretions within the left sphenoid sinus. IMPRESSION: No acute intracranial findings. ACT 112: Negative or not required by law. Electronically signed by: Kevin Noel M.D. 03/15/2023 4:44 PM Discharge Plan Visit Data Chief Complaint: Altered Mental Status Stated Complaint: ALTERED MENTAL STATUS, HYPOTENSION, INFECTION ED Provider: Venice Yanez Discharge Problem: Acute alteration in mental status Patient Disposition: Admitted As Inpatient Discharge Instructions Interventions: ED Discharge Assessment Last Done: 03/15/23 20:22
--- NOTE | 2023-03-15 18:37 | History & Physical Report ---
Date of Service March 15, 2023 Assessment & Plan (1) AMS (altered mental status): (2) Osteomyelitis: Plan: This is a 73yo M with a PMH of R fourth toe cellulitis/osteomyelitis who presents with AMS per family. Admitted to [facility] 1 month ago for cellulitis/osteomyelitis of the right fourth, on 6 week course of IV Ertapenem (approx 2 weeks remain, per ) Notably more confused and fatigued at home over the past 2 days at home after being instructed to stop lisinopril/hctz for unclear reason BP 158/69, o2 saturation 97% on room air, no leukocytosis, TSH WNL, CT head with no acute intracranial findings, UA without evidence of infection, CXR withno acute cardiopulmonary findings. Mild cardiomegaly No focal neuro deficits on exam, alert and oriented Brain MRI, 2D echo ordered, ABG showing pH 7.42 Repeat labs in AM including ESR and CRP Feel new symptoms are likely attributable to stopping lisinopril/hctz, BP elevated during exam Resuming lisinopril 20mg BID, will continue to hold diuretic for now (3) HTN (hypertension): Plan: Continue Toprol, lisinopril (holding hctz for now 2/2 dehydrated appearance) (4) CAD (coronary artery disease): Plan: H/o stents in 2006, 2009. No CP, stable. Continue aspirin, statin, beta gela (5) Anxiety: (6) Depression: Plan: Continue bupropion, venlafaxine (7) SHANNON (obstructive sleep apnea): Plan: Intolerant to CPAP DVT Ppx: SQ lovenox Code status: FULL PCP: Martínez Dispo: med tele Patient seen in collaboration with Dr. Blanca. Please see addendum. History of Present Illness Chief Complaint: AMS Primary Care Provider: Tyler Soliz, This is a 73yo M with a PMH of R fourth toe cellulitis/osteomyelitis who presents with AMS per family. Other PMH includes CAD (s/p PK in 2006 and 2009), HTN, anxiety, depression, gout, SHANNON intolerant to CPAP. Has recent history of cellulitis/osteomyelitis of the right fourth toe for which he was admitted at [facility] about a month ago and has been on IV ertapenem via PICC line for the last 4 weeks. Has 2 weeks remaining of the course.Patient's family states they have noticed patient to be more lethargic and confused over the last several days including delirium.Has a sleep disorder at baseline and has fallen out of bed several times but he is uncertain if he hit his head. This has been going on for many years and does not sound like it has changed recently. Patient endorses increased fatigue and some exertional dyspnea but denies any F/C, lightheadedness, CP, SOB, N/V, abdominal pain, dysuria, diarrhea or constipation. Has chronic numbness and tingling on bottoms of feet. Stopped his lisinopril 2 days ago per PCP but does not know why. Endorses SHANNON but intolerant to CPAP 2/2 sleep disorder with extensive movement overnight where he would knock off mask. Follows with Dr. Soliz of [facility] in [place]. Home Medications Medication Instructions Recorded Confirmed Type allopurinol 300 mg tablet 300 mg PO DAILY 03/15/23 03/15/23 History aspirin 81 mg tablet 81 mg PO DAILY 03/15/23 03/15/23 History atorvastatin 40 mg tablet 40 mg PO HS 03/15/23 03/15/23 History bupropion HCl 100 mg tablet 100 mg PO DAILY 03/15/23 03/15/23 History docusate sodium 100 mg capsule 100 mg PO DAILY PRN Constipation 03/15/23 03/15/23 History ertapenem 1 gram intravenous 1 g IV DAILY 03/15/23 03/15/23 History solution ibuprofen 800 mg tablet 800 mg PO TID pain 03/15/23 03/15/23 History lisinopril 20 1 tab PO BID 03/15/23 03/15/23 History mg-hydrochlorothiazide 12.5 mg tablet metoprolol succinate 50 mg 50 mg PO DAILY 03/15/23 03/15/23 History tablet,extended release 24 hr omeprazole 40 mg capsule,delayed 40 mg PO DAILY 03/15/23 03/15/23 History release venlafaxine 37.5 mg 37.5 mg PO DAILY 03/15/23 03/15/23 History capsule,extended release 24 hr Past Med/Surg History Medical History (Updated 03/15/23 @ 19:55 by Sangita Wu PA-C) Anxiety CAD (coronary artery disease) Depression Gout HTN (hypertension) SHANNON (obstructive sleep apnea) Osteomyelitis Surgical History H/O Spinal surgery Hx of tonsillectomy S/P appendectomy Stented coronary artery 2009 Family History Other Cancer Heart disease Prostate cancer Social History (Updated 03/15/23 @ 19:53 by Sangita Wu PA-C) Smoking Status: Former smoker Hx Alcohol Use: No (quit ) Hx Substance Use: No Review of Systems Review of Systems: At least ten systems reviewed and negative except as noted in the HPI. Physical Exam Physical Exam: Please see Dr. lBanca's addendum for physical exam. Results & Data Results & Data Vital Signs (Past 12 Hours) Vital Signs Temp Pulse Pulse Resp BP BP Pulse Ox 03/15/23 17:20 57 L 17 97 03/15/23 17:10 61 19 03/15/23 17:00 61 20 116/76 96 03/15/23 16:50 60 16 98 03/15/23 16:40 59 L 16 97 03/15/23 16:37 59 L 17 158/69 H 97 03/15/23 16:36 61 11 L 03/15/23 16:20 59 L 16 97 03/15/23 16:10 60 14 95 03/15/23 16:00 61 16 141/83 H 97 03/15/23 15:52 59 L 16 98 03/15/23 15:50 57 L 97 03/15/23 16:00 64 03/15/23 15:25 61 16 146/91 H 97 03/15/23 15:25 96 03/15/23 15:21 36.4 C L 66 18 126/79 94 O2 Del Method O2 Flow Rate 03/15/23 17:20 03/15/23 17:10 03/15/23 17:00 03/15/23 16:50 03/15/23 16:40 03/15/23 16:37 03/15/23 16:36 03/15/23 16:20 03/15/23 16:10 03/15/23 16:00 03/15/23 15:52 03/15/23 15:50 Room Air 03/15/23 16:00 03/15/23 15:25 Room Air 03/15/23 15:25 Room Air 0 03/15/23 15:21 Room Air Laboratory Results Short CBC 03/15/23 Range/Units 15:50 WBC 6.18 (4.8-10.8) K/ul Hgb 11.3 L (14.0-18.0) g/dl Hct 32.2 L (42.0-52.0) % Plt Count 133 (130-400) K/uL BMP 03/15/23 15:50 Sodium 138 Potassium 4.0 Chloride 104 Carbon Dioxide 28 BUN 25 H Creatinine 1.28 Glucose 97 Calcium 9.0 Liver Function 03/15/23 Range/Units 15:50 Total Bilirubin 0.8 (0.2-1.0) mg/dl AST 16 (13-39) U/L ALT 18 (7-52) U/L Alkaline Phosphatase 131 H (34-104) U/L Albumin 3.9 (3.4-5.0) gm/dl Urine 03/15/23 Range/Units 17:17 Urine Color Yellow Urine Appearance Clear (Clear) Urine pH 6.5 (4.5-7.5) Ur Specific [place] 1.010 (1.000-1.030) Urine Protein Negative (Negative) Urine Glucose (UA) Negative (Negative) Diagnostic Findings Chest X-Ray 03/15/23 15:44 XR chest 1V portable CLINICAL HISTORY: weakness COMPARISON STUDY: No previous studies for comparison. FINDINGS: Right PICC tip is within the SVC. No pneumothorax or pleural effusion is present. There is no consolidation. No evidence for pulmonary edema. Mild cardiomegaly. Mediastinal contours are otherwise normal. IMPRESSION: No acute cardiopulmonary findings. Mild cardiomegaly. ACT 112: Negative or not required by law. Electronically signed by: Kevin Noel M.D. 03/15/2023 4:[address] 03/15/23 15:50 CT OF THE HEAD WITHOUT CONTRAST CLINICAL HISTORY: Altered mental status. COMPARISON STUDY: No previous studies for comparison. CT DOSE: 705.24 mGy.cm TECHNIQUE: Helical axial images of the head were obtained without IV contrast. Automated exposure control was utilized for the study. A dose lowering technique was utilized adhering to the principles of ALARA. FINDINGS: No acute intracranial hemorrhage, midline shift or mass effect is present. The ventricular system is unremarkable. The basal cisterns are patent. No extra-axial collections are present. There are no findings to suggest acute dural sinus thrombosis or acute territorial infarct. There is no acute calvarial fracture. Small mucous retention cysts within the maxillary sinuses are incidentally noted. There are trace secretions within the left sphenoid sinus. IMPRESSION: No acute intracranial findings. ACT 112: Negative or not required by law. Electronically signed by: Kevin Noel M.D. 03/15/2023 4:44 PM Supervising Physician Co-Signing Physician Notes I have seen and examined the patient and have discussed the case with the provider above. I agree with the assessment and plan as stated with the following exceptions. Mr.'s Garcia has been feeling well since discharge from [facility] 4 weeks ago. He has been doing well on his antibiotics and has had a positive result in his infection of the foot. In the last couple of days it likely in response to stopping his blood pressure medicine he has reported increased fatigue and generalized what appear to be withdrawal symptoms. Specifically abrupt discontinuation of an antihypertensive drug can result in relatively rapid asymptomatic return of the blood pressure to pretreatment levels. He is currently 160 over 90s. They may see an acute rebound of the blood pressure with symptoms and signs of sympathetic overactivity that gives the appearance of a withdrawal syndrome. It is not clear why his PCP guided him to stop lisinopril HCT, however this was a moderate to high dose. As he is dehydrated on exam we will hold the HCTZ portion and reinstitute lisinopril 20 mg twice daily as previously supplied. We will monitor for an improvement in withdrawal symptoms. Agree with continued work-up to include brain MRI tonight. Initial reading reveals this to be normal. Continue monitoring on telemetry overnight. DO Evangelist
[2023-03-15] MEDS ORDERED: lisinopril 20 MG TAB PO ONE (19:37)
[2023-03-15 19:49] LABS: Base Excess ABG 2.4 mEq/L (-9-1.8); HCO3 ABG 27 mmol/L (19-24); PCO2 ABG 42 mmHg (35-46); PO2 ABG 78 mmHg (80-95); pH ABG 7.42 (7.35-7.45)
[2023-03-15 19:51] LABS: Allen Test Pos (Pos)
[2023-03-15] MEDS ORDERED: lisinopril 20 MG TAB PO SCH (21:00)
[2023-03-15] MEDS ORDERED: DOCUSATE SODIUM 100 MG CAP PO PRN (21:44)
[2023-03-15] MEDS ORDERED: IBUPROFEN 600 MG TAB PO PRN (21:44)
[2023-03-15] MEDS ORDERED: POLYETHYLENE (MIRALAX) 17 GM PACK PO PRN (21:44)
[2023-03-15] MEDS ORDERED: LACTATED RINGER'S 1,000 ML IV SCH (21:44)
[2023-03-15] MEDS ORDERED: Patient's ALLERGY Info needs ENTERED STA (21:48)
--- NOTE | 2023-03-15 21:59 | Magnetic Resonance Report ---
Exam(s): MRI HEAD Without Contrast EXAM: MR Head Without Intravenous Contrast CLINICAL HISTORY: Reason for exam: AMS. TECHNIQUE: Magnetic resonance images of the head/brain without intravenous contrast in multiple planes. COMPARISON: No relevant prior studies available. FINDINGS: No acute territorial infarct. No acute intracranial hemorrhage. No midline shift or mass effect. The territorial lawson-white matter differentiation is maintained throughout. Age-related cerebral volume loss. Periventricular and subcortical white matter T2 signal intensity, consistent with chronic microangiopathy. The visualized orbits appear grossly unremarkable. The calvarium is intact. The visualized paranasal sinuses and mastoid air cells are grossly clear. IMPRESSION: No acute territorial infarct. No acute intracranial hemorrhage. No midline shift or mass effect. Electronically signed by: Harley Toure MD 03/15/23 21:58 PM
[2023-03-16] MEDS: ATORVASTATIN 40 MG TAB PO SCH ×2 (01:00→21:39)
[2023-03-16 07:46] LABS: Hematocrit (blood only) 31.9 % (42.0-52.0); Hemoglobin 11.3 g/dl (14.0-18.0); Mean Corpuscular Hemoglobin 30.5 pg (25.0-34.0); Mean Corpuscular Hgb Conc 35.4 g/dL (32.0-36.0); Mean Platelet Volume 9.4 fL (9.4-12.4); Platelet Count 151 K/uL (130-400); RDW Coefficient of Variation 12.9 % (11.5-14.5); RDW Standard Deviation 40.1 fL (36.4-46.3); Red Blood Count 3.71 M/uL (4.70-6.10); White Blood Count 7.17 K/ul (4.8-10.8)
[2023-03-16 07:54] LABS: Anion Gap 7 (3-11); BUN Creatinine Ratio 19.8 (10-20); Blood Urea Nitrogen 23 mg/dl (6-23); C Reactive Protein < 0.50 mg/dl (0-0.5); Calcium 9.2 mg/dl (8.6-10.3); Carbon Dioxide 27 mmol/L (21-32); Chloride 106 mmol/L (98-107); Creatinine Clr Calc Pharmacy 64.6 ml/min; Est GFR (Non-African American) 61.3 ml/min; Glucose 98 mg/dl (70-99(Fasting)); Potassium 3.9 mmol/L (3.5-5.1); Sodium 140 mmol/L (136-145)
[2023-03-16] MEDS: PANTOprazole 40 MG TAB PO SCH (08:10)
[2023-03-16] MEDS: ASPIRIN 81 MG ECTAB PO SCH (08:10)
[2023-03-16] MEDS: buPROPion HCl 100 MG TABLET PO SCH (08:11)
[2023-03-16] MEDS: METOPROLOL SUCC 50MG EXT REL TAB PO SCH (08:11)
[2023-03-16] MEDS: VENLAFAXINE HCL XR 37.5 MG CAPXR PO SCH (08:11)
[2023-03-16] MEDS: lisinopril 20 MG TAB PO SCH ×2 (08:11→21:39)
[2023-03-16] MEDS: ENOXAPARIN INJ 40 MG/0.4 ML SYR SQ SCH (08:11)
[2023-03-16] MEDS: allopurinoL 300 MG TAB PO SCH (08:11)
[2023-03-16] MEDS: ERTAPENEM SODIUM 1,000 MG in SYRINGE 0 ML IV SCH (08:14)
--- NOTE | 2023-03-16 22:14 | Hospitalist Progress Note ---
Date of Service March 16, 2023 Assessment & Plan (1) AMS (altered mental status): (2) Osteomyelitis: Plan: This is a 73yo M with a PMH of R fourth toe cellulitis/osteomyelitis who presents with AMS per family. Admitted to [facility] 1 month ago for cellulitis/osteomyelitis of the right fourth, on 6 week course of IV Ertapenem (approx 2 weeks remain, per ) Notably more confused and fatigued at home over the past 2 days at home after being instructed to stop lisinopril/hctz due to kidney dysfunction per BP 158/69, o2 saturation 97% on room air, no leukocytosis, TSH WNL, CT head with no acute intracranial findings UA without evidence of infection CXR withno acute cardiopulmonary findings. Mild cardiomegaly No focal neuro deficits on exam, alert and oriented Brain MRI with no acute changes 2D echo with no acute concerns ABG showing pH 7.42 Neurology consult placed for further evaluation-Son and advised that pt had episodes of arm reaching, acute confusion and hallucinations that they believe started after he started the ertapenem abx. Family has videos of the pt doing these actions on their phone. They did not want to discontinue/change the ertapenem at this time but were agreeable to a neurology consult for further evaluation. Appreciate recs (3) HTN (hypertension): Plan: Continue Toprol, lisinopril (holding hctz for now 2/2 dehydrated appearance) (4) CAD (coronary artery disease): Plan: H/o stents in 2006, 2009. No CP, stable. Continue aspirin, statin, beta gela (5) Anxiety: (6) Depression: Plan: Continue bupropion, venlafaxine (7) SHANNON (obstructive sleep apnea): Plan: Intolerant to CPAP DVT Ppx: SQ lovenox Code status: FULL PCP: Martínez Dispo: med tele Admission and Anticipated Discharge Date Admission Date: March 15, 2023 Subjective Pt seen multiple during the day. Initially was alone. States that his symptoms are the same. Feels like there is a "cloud over his eyes" sometimes. Noted that he was concerned about an infection in his toe that remained red. Later notified that family was present and had questions. Son and advised that pt had episodes of arm reaching, acute confusion and hallucinations that they believe started after he started the ertapenem abx. They did not want to discontinue but were agreeable to a neurology consult for further evaluation. Review of Systems 2 Review of Systems: All systems reviewed & are unremarkable except as noted in Subjective Physical Exam Physical Exam: General: Alert, oriented. No acute distress Skin: No noted rashes or bruises Psych: Appropriate mood and affect Neuro: No gross deficits HEENT: NC/AT Chest: Nontender to palpation. CV: RRR, Normal s1, s2. No murmurs appreciated Resp: Breath sounds clear bilaterally, no increased effort of breathing. Abdomen: Soft, nontender, nondistended. Extremities: left 4th toe with slight erythema. Results & Data Results & Data Vital Signs (Past 12 Hours) Vital Signs Temp Pulse Pulse Resp BP Pulse Ox O2 Del Method 03/16/23 11:37 36.8 C 71 16 132/74 94 Room Air 03/16/23 08:00 36.8 C 69 16 143/69 H 94 Room Air 03/16/23 07:21 71 03/16/23 04:00 Room Air 03/16/23 04:00 36.8 C 102 H 20 173/84 H 96 Room Air 03/16/23 04:15 36.7 C 79 20 168/78 H 95 Room Air
[2023-03-17 06:47] LABS: Basophils # (auto) 0.03 K/uL (0.00-0.20); Basophils % (auto) 0.4 %; Eosinophils # (auto) 0.77 K/uL (0.00-0.50); Eosinophils % (auto) 11.1 %; Hematocrit (blood only) 32.5 % (42.0-52.0); Hemoglobin 11.2 g/dl (14.0-18.0); Immature Granulocytes # (auto) 0.01 K/uL (0.01-0.20); Immature Granulocytes % (auto) 0.1 %; Lymphocytes % (auto) 27.3 %; Mean Corpuscular Hemoglobin 30.4 pg (25.0-34.0); Mean Corpuscular Hgb Conc 34.5 g/dL (32.0-36.0); Mean Corpuscular Volume 88.3 fL (80.0-100.0); Mean Platelet Volume 9.2 fL (9.4-12.4); Monocytes # (auto) 0.55 K/uL (0.11-0.59); Monocytes % (auto) 7.9 %; Neutrophils # (auto) 3.69 K/uL (1.40-6.50); Neutrophils % (auto) 53.2 %; Platelet Count 126 K/uL (130-400); RDW Coefficient of Variation 12.7 % (11.5-14.5); RDW Standard Deviation 41.3 fL (36.4-46.3); Red Blood Count 3.68 M/uL (4.70-6.10); White Blood Count 6.95 K/ul (4.8-10.8)
[2023-03-17 07:08] LABS: Albumin Globulin Ratio 1.9 (0.9-2); Albumin Level 3.9 gm/dl (3.4-5.0); BUN Creatinine Ratio 16.7 (10-20); Calcium 9.2 mg/dl (8.6-10.3); Creatinine Clr Calc Pharmacy 62.5 ml/min; Est GFR (African American) 68.1 ml/min; Est GFR (Non-African American) 58.8 ml/min; Globulin 2.1 gm/dl (2.5-4.0); Magnesium 1.9 mg/dl (1.7-2.4); Potassium 3.8 mmol/L (3.5-5.1)
--- NOTE | 2023-03-17 08:08 | Hospitalist Progress Note ---
Date of Service March 17, 2023 Assessment & Plan (1) AMS (altered mental status): Plan: New constellation of symptoms including intermittent confusion, increased tremulousness, brain fog and fatigue have been ongoing for the past week. Workup including brain MRI, CBC, chem panel, TSH, all WNL. Head CT, CXR clear. No evidence of UTI. At this point, adding back his BP meds has not improved his symptoms. Will stop ertapenem and change his therapy to Rocephin 2gm IV q24h, starting when the next dose of ertapenem is due. Where this medication also has a side effect possibility of encephalopathy, we cannot give fluoroquinolones given history of a reaction to those. This would provide broad empiric coverage similar to ertapenem while waiting on the reports from [facility] where this was diagnosed. Family also requested a screen for Lyme which I have added. I will also check vit D and B12 and folate levels. (2) Osteomyelitis: Plan: ongoing treatment of active infection. Plan as above. Foot looks good with negative inflammatory markers at this point. Follow-up with his primary care physician closely after discharge. (3) HTN (hypertension): Plan: chronic, controlled. Continue Toprol, lisinopril and added back HCTZ (4) CAD (coronary artery disease): Plan: H/o stents in 2006, 2009. No CP, stable. Continue aspirin, statin, beta gela (5) Anxiety: Plan: chronic, appears stable. (6) Depression: Plan: chronic, stable. Continue bupropion, venlafaxine per home regimen. (7) SHANNON (obstructive sleep apnea): Plan: Intolerant to CPAP. I did spend time reviewing the risks of not being compliant with treatment for SHANNON, including the increased risk of mortality with the family today. states that previous doctors have not given him a solid working diagnosis for his sleep issues and patient offers these symptoms were also present with his brother. Outpatient pulm/Sleep medicine followup recommended once he has completed the osteomyelitis therapy. DVT Ppx: SQ lovenox Code status: FULL PCP: Martínez (Treva) Dispo: med tele I spent a total [id number] coordinating, documenting, and providing care for this patient excluding time spent in the performance of separately billed services Erin Blanca DO [facility] Hospitalist Admission and Anticipated Discharge Date Admission Date: March 15, 2023 Subjective 73 yo M on ertapenem for the past few weeks for right toe osteomyelitis presents with intermittent confusion, hallucinations, abnormal hand movement. Reports brain fog He does admit to feeling intermittently confused No improvement since admission. No significant pain, denies fever. Per family who is at the bedside and assisting with the history, they report he has some kind of undiagnosed sleep disorder at baseline where he can become physical or even sleepwalk without being aware. What they are seeing now is that where this may be normal for him at night, it is now happening during the day, along with the other symptoms mentioned above. They did request an opinion from Neurology which is being set up. Per , there was a general surgeon who started the ertapenem. It is not clear if anyone from Infectious Disease was involved. Records have been requested from his PCP office and [facility]. Primary RN also at the bedside. States patient was unsteady trying to get out of bed independently this morning, so she has him on a bed alarm. Physical Exam Physical Exam: CONSTITUTIONAL: WNWD, vitals as above, generally NAD EYES: pupil are round and equal bilaterally, normal conjunctivae, no scleral icterus ENT: external ear and nose normal, MMM NECK: trachea midline RESPIRATORY: clear to auscultation bilaterally, no crackles, rales or wheezes, normal respiratory effort CARDIOVASCULAR: regular rate and rhythm, S1 and 2 heard without murmurs, gallops or rubs, no JVD, no peripheral edema CHEST: inspection of chest was normal GASTROINTESTINAL: soft, nontender, ND, no guarding. MUSCULOSKELETAL: strength 5/5 throughout, head is normocephalic and atraumatic, SKIN: warm and dry NEUROLOGIC: CN 2-12 grossly intact, no sensory deficit, normal cognition, normal speech, no tremor PSYCHIATRIC: alert cooperative and oriented to person, place and time. Euthymic mood, makes good eye contact, language grossly intact, recent and remote memory grossly intact. Results & Data Results & Data Vital Signs (Past 12 Hours) Vital Signs Temp Pulse Pulse Resp BP Pulse Ox O2 Del Method 03/17/23 07:57 36.4 C L 64 16 155/78 H 92 Room Air 03/17/23 07:00 64 03/17/23 04:03 36.7 C 66 18 168/77 H 94 Room Air 03/16/23 21:59 74 10/22/23 23:59 36.7 C 68 18 151/74 H 95 Room Air Laboratory Results Short CBC 03/17/23 Range/Units 06:02 WBC 6.95 (4.8-10.8) K/ul Hgb 11.2 L (14.0-18.0) g/dl Hct 32.5 L (42.0-52.0) % Plt Count 126 L (130-400) K/uL BMP 03/17/23 06:02 Sodium 140 Potassium 3.8 Chloride 106 Carbon Dioxide 27 BUN 20 Creatinine 1.20 Glucose 98 Calcium 9.2 Liver Function 03/17/23 Range/Units 06:02 Total Bilirubin 1.0 (0.2-1.0) mg/dl AST 17 (13-39) U/L ALT 16 (7-52) U/L Alkaline Phosphatase 123 H (34-104) U/L Albumin 3.9 (3.4-5.0) gm/dl Medications Administered Current Inpatient Medications Acetaminophen (Acetaminophen 325 Mg Tab) 650 mg PO Q4H PRN PRN Reason: Pain or Fever Stop: 04/14/23 21:43 Allopurinol (Allopurinol 300 Mg Tab) 300 mg PO DAILY MARCIN Stop: 04/15/23 08:59 Last Admin: 03/16/23 08:11 Dose: 300 mg Aspirin (Aspirin 81 Mg Ectab) 81 mg PO DAILY MARCIN Stop: 04/15/23 08:59 Last Admin: 03/16/23 08:10 Dose: 81 mg Atorvastatin Calcium (Atorvastatin 40 Mg Tab) 40 mg PO HS MARCIN Stop: 04/14/23 21:43 Last Admin: 03/16/23 21:39 Dose: 40 mg Bupropion HCl (Bupropion Hcl 100 Mg Tablet) 100 mg PO DAILY MARCIN Stop: 04/15/23 08:59 Last Admin: 03/16/23 08:11 Dose: 100 mg Docusate Sodium (Docusate Sodium 100 Mg Cap) 100 mg PO DAILY PRN PRN Reason: Constipation Stop: 04/14/23 21:43 Enoxaparin Sodium (Enoxaparin Inj 40 Mg/0.4 Ml Syr) 40 mg SQ Q24H MARCIN Stop: 04/15/23 08:59 Last Admin: 03/16/23 08:11 Dose: 40 mg Hydrochlorothiazide (Hydrochlorothiazide 25 Mg Tab) 12.5 mg PO QAM [facility] Stop: 04/16/23 08:59 Ertapenem 1,000 mg/ Syringe 10 mls @ 2 mls/min IV Q24H MARCIN Stop: 04/27/23 08:59 Last Admin: 03/16/23 08:14 Dose: 2 mls/min Ibuprofen (Ibuprofen 600 Mg Tab) 600 mg PO TID PRN PRN Reason: pain (not relieved by tylenol) Stop: 04/14/23 21:43 Lisinopril (Lisinopril 20 Mg Tab) 20 mg PO BID [facility] Stop: 04/15/23 08:59 Last Admin: 03/16/23 21:39 Dose: 20 mg Metoprolol Succinate (Metoprolol Succ 50mg Ext Rel Tab) 50 mg PO DAILY [facility] Stop: 04/15/23 08:59 Last Admin: 03/16/23 08:11 Dose: 50 mg Pantoprazole Sodium (Pantoprazole 40 Mg Tab) 40 mg PO DAILY MARCIN Stop: 04/15/23 08:59 Last Admin: 03/16/23 08:10 Dose: 40 mg Polyethylene Glycol (Polyethylene (Miralax) 17 Gm Pack) 17 gm PO DAILY PRN PRN Reason: Constipation Stop: 04/14/23 21:43 Venlafaxine HCl (Venlafaxine Hcl Xr 37.5 Mg Capxr) 37.5 mg PO DAILY MARCIN Stop: 04/15/23 08:59 Last Admin: 03/16/23 08:11 Dose: 37.5 mg
[2023-03-17] MEDS: PANTOprazole 40 MG TAB PO SCH (08:33)
[2023-03-17] MEDS: VENLAFAXINE HCL XR 37.5 MG CAPXR PO SCH (08:33)
[2023-03-17] MEDS: lisinopril 20 MG TAB PO SCH ×2 (08:33→22:14)
[2023-03-17] MEDS: allopurinoL 300 MG TAB PO SCH (08:34)
[2023-03-17] MEDS: METOPROLOL SUCC 50MG EXT REL TAB PO SCH (08:34)
[2023-03-17] MEDS: buPROPion HCl 100 MG TABLET PO SCH (08:34)
[2023-03-17] MEDS: ASPIRIN 81 MG ECTAB PO SCH (08:34)
[2023-03-17] MEDS: ERTAPENEM SODIUM 1,000 MG in SYRINGE 0 ML IV SCH (08:35)
[2023-03-17] MEDS: ENOXAPARIN INJ 40 MG/0.4 ML SYR SQ SCH (08:35)
[2023-03-17] MEDS ORDERED: hydroCHLOROthiazide 25 MG TAB PO SCH (09:00)
[2023-03-17 15:06] LABS: Folate (Folic Acid),Ser orPlas 15.8 ng/ml (>5.38)
[2023-03-17 15:50] LABS: Lyme Ab IgG w/WB Rflx Negative (Negative); Lyme Ab IgM w/WB Rflx Negative (Negative)
--- NOTE | 2023-03-17 17:14 | Neurology Consultation ---
Date of Consultation March 17, 2023 Assessment & Plan (1) AMS (altered mental status): Changes in mental status related to acute encephalopathy , due to infection , in addition to possible neurotoxicity caused by ertapanem MRI is reviewed and is negative Will order an EEG (2) REM sleep behavior disorder: Chronic exacerbated by the the current infection , antibiotics Plan Will need an outpatient evaluation with a sleep specialist, Recommend placing a referral to a sleep specialist will not be initiating any dopaminergic agent , given concerns for hallucination Telehealth Consultation Telehealth Information Telehealth Information: I performed this visit using a real-time telehealth connection between my location and the patients location ([facility]). After connecting through interactive tele-video, patient was identified by name and date of and/or wristband check.Patient (or authorized healthcare graphic art sales representative) was informed that this was a telemedicine visit and it was being conducted confidentially over secure lines. My office door was closed and no one else was present in the room with me.Patient (or authorized healthcare graphic art sales representative) provided consent to proceed with the visit, expressed an understanding of privacy and security of the telemedicine visit, and gave pe rmission to have a hospital graphic art sales representative in the room in order to assist with the visit and to conduct portions of the visit, as needed. I informed the patient (or authorized healthcare graphic art sales representative) that I reviewed their record and presented the opportunity for them to ask any questions regarding the visit today. The patient agreed to participate. History of Present Illness Reason for Consultation: changes in mental status Requesting Physician: Dr Muñoz Attending Physician: Erin Blanca, History of Present Illness The patient is a 73 Y.o male patient with a PMH of HTN , SHANNON/sleep disorder intolerant t CPAP, HLD, gout , recent hx of 4rth toe oseomylitis for which he was started on ertapanem via [facility] line presenting to the hospital with mental status. The son reports that a moment before our encounter , was sleeping and kicking so hard that it woke him up , when he woke up , and he was confused didn't know that hisdaughter was there( she has been with him for 2 days). He is described to have this during the night , but never during the day. He has been confused during the day , sometimes having hallucinations , where he sees people that are not there. He also at one point acting confused , opening the glove compartment in the car and when asked what he was doing , he would say he is putting the towels away. during the interview he fell asleep and was noted to have jerking movements of his legs . He was easily arousable , was pleasant and none confused Allergies Allergy/AdvReac Type Severity Reaction Status Date / Time moxifloxacin [From Avelox] Allergy Unknown Unknown Verified 03/15/23 23:42 Home Medications Medication Instructions Recorded Confirmed Type allopurinol 300 mg tablet 300 mg PO DAILY 03/15/23 03/15/23 History aspirin 81 mg tablet 81 mg PO DAILY 03/15/23 03/15/23 History atorvastatin 40 mg tablet 40 mg PO HS 03/15/23 03/15/23 History bupropion HCl 100 mg tablet 100 mg PO DAILY 03/15/23 03/15/23 History docusate sodium 100 mg capsule 100 mg PO DAILY PRN Constipation 03/15/23 03/15/23 History ertapenem 1 gram intravenous 1 g IV DAILY 03/15/23 03/15/23 History solution ibuprofen 800 mg tablet 800 mg PO TID pain 03/15/23 03/15/23 History lisinopril 20 1 tab PO BID 03/15/23 03/15/23 History mg-hydrochlorothiazide 12.5 mg tablet metoprolol succinate 50 mg 50 mg PO DAILY 03/15/23 03/15/23 History tablet,extended release 24 hr omeprazole 40 mg capsule,delayed 40 mg PO DAILY 03/15/23 03/15/23 History release venlafaxine 37.5 mg 37.5 mg PO DAILY 03/15/23 03/15/23 History capsule,extended release 24 hr Patient History Medical History (Updated 03/17/23 @ 17:33 by Scotty Torre MD) Anxiety CAD (coronary artery disease) Depression Gout HTN (hypertension) SHANNON (obstructive sleep apnea) Osteomyelitis REM sleep behavior disorder Surgical History H/O Spinal surgery Hx of tonsillectomy S/P appendectomy Stented coronary artery 2009 Family History Other Cancer Heart disease Prostate cancer Social History (Updated 03/15/23 @ 19:53 by Sangita Wu PA-C) Hx Alcohol Use: No (quit ) Hx Substance Use: No Communication Ability: Effective Current Living Situation: Alone Current Living Situation Comment: home health and help from family Assistive Devices: Cane and Walker Review of Systems Review of Systems ROS unobtainable: other All systems PM: reviewed and no additional remarkable complaints except as stated Constitutional: abnormal sleep Eyes: other Ears, nose, mouth, throat: other Cardiovascular: orthopnea Respiratory: other Gastrointestinal: other Genitourinary: other Musculoskeletal: other Integumentary: other Integumentary (breast): other Neurological: other Psychiatric: anxiety and depression Endocrine: other Hematologic/Lymphatic: other Allergic/Immunologic: other Physical Exam NEUROLOGIC EXAMINATION: - General:Well nourished not in acute distress.,non-obese,no deformities,well groomed.Afebrile.NAD, Alert, Oriented x 4, Follows commands w/o difficulty. -Eyes: Normal lytes, normal sclera, normal conjunctiva, fundi are visualized and show a normal optic disc, normal vessels normal-sized pupils with good reactivity. -Chest: Clear to auscultation bilaterally, no labored breathing, no wheezes or crepitations. -Cardiovascular: Regular rate and rhythm, normal S1 and S2, no murmurs, no carotid bruits. Normal pulse. - Head: Atraumatic, Non-tender - Speech: Clear, fluent, appropriate -Language: No aphasia. -Memory : Grossly within NL - CN: II: Visual Nash intact to examiner III/IV/: PERRLA 3 mm briskly EOMI w/o nystagmus or diplopia V: Face sensation intact and symmetrical Good Bite Strength VII: Face symmetrical at rest and w/ expression VIII: Auditory Acuity intact to conversational voice IX: Swallows without difficulty X: Palate midline XI: Shoulder shrug intact XII: Tongue protrudes midline - Motor: 5/5 RUE ; 5/5 LUE 5/5 RLE ; 5/5 LLE No drift - Cerebellar: Finger to nose intact Heel Knee howard - Sensation: Intact and symmetrical to soft touch BUE and BLE - Reflex's:Cannot assess by telemedicine Constitutional WD/WN, vitals as above Eyes PERRL, conjunctivae normal, anicteric sclerae ENMT external ear and nose normal, oropharynx normal Neck trachea midline, no thyromegaly Cardiovascular RRR, no murmur, no edema Gastrointestinal (Abdomen) normal bowel sounds, soft, nontender, no hepatosplenomegaly Musculoskeletal no cyanosis or clubbing, extremities motor strength 5/5 Neurologic Oriented to:: Person, Place and Time Cognitive Function: Attention, Concentration and Judgement Psychiatric A+Ox3, euthymic affect Results & Data Vital Signs (Past 12 Hours) Vital Signs Temp Pulse Pulse Resp BP Pulse Ox O2 Del Method 03/17/23 15:02 36.5 C 78 16 119/69 95 Room Air 03/17/23 10:58 Room Air 03/17/23 10:54 36.7 C 67 16 143/73 H 94 Room Air 03/17/23 07:57 36.4 C L 64 16 155/78 H 92 Room Air 03/17/23 07:00 64 Laboratory Results Abnormal lab results 03/17/23 03/17/23 Range/Units 06:02 06:02 RBC 3.68 L (4.70-6.10) M/uL Hgb 11.2 L (14.0-18.0) g/dl Hct 32.5 L (42.0-52.0) % Plt Count 126 L (130-400) K/uL MPV 9.2 L (9.4-12.4) fL Eos # (Auto) 0.77 H (0.00-0.50) K/uL Alkaline Phosphatase 123 H (34-104) U/L Globulin 2.1 L (2.5-4.0) gm/dl Diagnostic Findings CLINICAL HISTORY: Reason for exam: AMS. TECHNIQUE: Magnetic resonance images of the head/brain without intravenous contrast in multiple planes. COMPARISON: No relevant prior studies available. FINDINGS: No acute territorial infarct. No acute intracranial hemorrhage. No midline shift or mass effect. The territorial lawson-white matter differentiation is maintained throughout. Age-related cerebral volume loss. Periventricular and subcortical white matter T2 signal intensity, consistent with chronic microangiopathy. The visualized orbits appear grossly unremarkable. The calvarium is intact. The visualized paranasal sinuses and mastoid air cells are grossly clear. IMPRESSION: No acute territorial infarct
[2023-03-17] MEDS ORDERED: SODIUM CHLORIDE 0.9% 1,000 ML IV ONE (19:54)
[2023-03-17] MEDS ORDERED: MAGNESIUM SULFATE / D5W 1 GM/100 ML BAG IV ONE (19:55)
--- NOTE | 2023-03-17 19:55 | Communication Note ---
Date of Service: March 17, 2023 7:50 PM patient with Increased jerking/seizure-like activity as per RN Patient later found to be confused. BSG 105 Serum creatinine 1.8 Ap ? Focal seizures ARF Ativan as needed active seizures Seizure precautions Hold patient bupropion for now given medication potential to lower seizure threshold Check UA Monitor creatinine response to IVF Hold HCTZ for now
[2023-03-17 21:11] LABS: BUN Creatinine Ratio 11.1 (10-20); Calcium 9.1 mg/dl (8.6-10.3); Creatinine Clr Calc Pharmacy 41.7 ml/min; Est GFR (African American) 41.7 ml/min; Potassium 4.1 mmol/L (3.5-5.1)
[2023-03-17 21:56] LABS: Basophils # (auto) 0.03 K/uL (0.00-0.20); Basophils % (auto) 0.4 %; Eosinophils # (auto) 0.77 K/uL (0.00-0.50); Eosinophils % (auto) 11.4 %; Hematocrit (blood only) 32.9 % (42.0-52.0); Hemoglobin 11.3 g/dl (14.0-18.0); Immature Granulocytes # (auto) 0.02 K/uL (0.01-0.20); Immature Granulocytes % (auto) 0.3 %; Lymphocytes # (auto) 1.66 K/uL (1.20-3.40); Lymphocytes % (auto) 24.5 %; Mean Corpuscular Hemoglobin 30.5 pg (25.0-34.0); Mean Corpuscular Hgb Conc 34.3 g/dL (32.0-36.0); Mean Corpuscular Volume 88.7 fL (80.0-100.0); Mean Platelet Volume 9.5 fL (9.4-12.4); Monocytes # (auto) 0.59 K/uL (0.11-0.59); Monocytes % (auto) 8.7 %; Neutrophils % (auto) 54.7 %; Platelet Count 139 K/uL (130-400); RDW Coefficient of Variation 12.7 % (11.5-14.5); Red Blood Count 3.71 M/uL (4.70-6.10); White Blood Count 6.77 K/ul (4.8-10.8)
[2023-03-17] MEDS: ATORVASTATIN 40 MG TAB PO SCH (22:15)
--- NOTE | 2023-03-17 23:04 | Electrocardiogram Report ---
Test Reason : Blood Pressure : / mmHG Vent. Rate : 060 BPM Atrial Rate : 060 BPM P-R Int : 202 ms QRS Dur : 098 ms QT Int : 440 ms P-R-T Axes : 035 -13 026 degrees QTc Int : 440 ms Normal sinus rhythm Normal ECG No previous ECGs available Confirmed by Bert Rome ([id number]) on 03/17/2023 11:03:33 PM Referred By: Confirmed By:Bert Rome
[2023-03-18 06:51] LABS: Hematocrit (blood only) 31.4 % (42.0-52.0); Hemoglobin 10.9 g/dl (14.0-18.0); Mean Corpuscular Hemoglobin 30.7 pg (25.0-34.0); Mean Corpuscular Hgb Conc 34.7 g/dL (32.0-36.0); Mean Corpuscular Volume 88.5 fL (80.0-100.0); Mean Platelet Volume 9.3 fL (9.4-12.4); Platelet Count 133 K/uL (130-400); RDW Coefficient of Variation 12.5 % (11.5-14.5); RDW Standard Deviation 41.1 fL (36.4-46.3); Red Blood Count 3.55 M/uL (4.70-6.10); White Blood Count 7.41 K/ul (4.8-10.8)
[2023-03-18 07:25] LABS: BUN Creatinine Ratio 16.2 (10-20); Calcium 8.9 mg/dl (8.6-10.3); Creatinine Clr Calc Pharmacy 49.6 ml/min; Est GFR (African American) 52.9 ml/min; Est GFR (Non-African American) 45.6 ml/min; Potassium 3.8 mmol/L (3.5-5.1)
[2023-03-18] MEDS ORDERED: PIPERACILLIN/TAZOBACTAM 4.5 GM in DEXTROSE 5% MINI-B 100 ML IV ONE (08:00)
[2023-03-18] MEDS: ACETAMINOPHEN 325 MG TAB PO PRN (08:48)
[2023-03-18] MEDS: VENLAFAXINE HCL XR 37.5 MG CAPXR PO SCH (08:49)
[2023-03-18] MEDS: CYANOCOBALAMIN (B-12) 500 MCG TABLET PO SCH (08:49)
[2023-03-18] MEDS: allopurinoL 300 MG TAB PO SCH (08:49)
[2023-03-18] MEDS: PANTOprazole 40 MG TAB PO SCH (08:49)
[2023-03-18] MEDS: ASPIRIN 81 MG ECTAB PO SCH (08:50)
[2023-03-18] MEDS: METOPROLOL SUCC 50MG EXT REL TAB PO SCH (08:55)
[2023-03-18] MEDS ORDERED: cefTRIAXone SODIUM 2,000 MG in DEXTROSE 5 % MINI-B 50 ML IV SCH (09:00)
--- NOTE | 2023-03-18 10:08 | Hospitalist Progress Note ---
Date of Service March 18, 2023 Assessment & Plan (1) AMS (altered mental status): Plan: New constellation of symptoms including intermittent confusion, increased tremulousness, brain fog and fatigue have been ongoing for the past week, continue to worsen. Workup including brain MRI, CBC, chem panel, TSH, Lyme panel, 25OH vit D, B12/folate all WNL. Head CT, CXR clear. No evidence of UTI. At this point, adding back his BP meds has not improved his symptoms (these ad been stopped around the time symptoms became more evident prior to arrival). I have discussed the case wtih Dr. Grupo Simental from [facility], who was familiar with his case from his consultation on 02/18/23. He argues against changing to ceftriaxone because we have no microbiological data from [facility] (there was no wound culture or surgical debbridement performed and there were blood cultures that were negative) and a previous wound culture from over the summer had grown Enterobacter, so with ceftriaxone there was the possibility of amp-C inducibility and treatment failure. After discussing the risks and benefits of alternatives, Zosyn 4.5gm IV q6hrs was recommended. Although this dosing is frequent at home, he only had ten days of treatment left. The family is now concerned for any antibiotic and prefers to hold off on additional antimicrobial therapies for now until his encephalopathy resolves. His current hallucinations, dizziness, and tremors are thought to be a combination of ertepenem side effect, infection, and a worsening of his known REM sleep disorder in the setting of untreated SHANNON and buproion use, which was held. Will cont to hold Zosyn for now and await further thoughts from [place]. Notably his inflammatory markers are normal. (2) Osteomyelitis: Plan: ongoing treatment of active infection. Plan as above. Foot looks good with negative inflammatory markers at this point. Follow-up with his primary care physician closely after discharge. (3) HTN (hypertension): Plan: chronic, controlled. Continue Toprol, lisinopril and added back HCTZ (4) CAD (coronary artery disease): Plan: H/o stents in 2006, 2009. No CP, stable. Continue aspirin, statin, beta gela (5) Anxiety: Plan: chronic, appears stable. (6) Depression: Plan: chronic, stable. Continue bupropion, venlafaxine per home regimen. (7) SHANNON (obstructive sleep apnea): Plan: Intolerant to CPAP. I did spend time reviewing the risks of not being compliant with treatment for SHANNON, including the increased risk of mortality with the family today. states that previous doctors have not given him a solid working diagnosis for his sleep issues and patient offers these symptoms were also present with his brother. Outpatient pulm/Sleep medicine followup recommended once he has completed the osteomyelitis therapy. DVT Ppx: SQ lovenox Code status: FULL PCP: Martínez Aguirre) Dispo: med tele I spent a total [id number] coordinating, documenting, and providing care for this patient excluding time spent in the performance of separately billed servi mahad Erin Blanca DO [facility] Hospitalist Admission and Anticipated Discharge Date Admission Date: March 17, 2023 Subjective 73 yo M on ertapenem for the past few weeks for right toe osteomyelitis presents with intermittent confusion, hallucinations, abnormal hand movement. persistent hallucinations this morning and overnight tremulousless when sleeping EEG ordered for this morning. and son are at bedside and we discussed my conversation wt ID physician yesterday and the reasons for the zosyn They verbalized understanding of the risk for treatment failure and indirect risk for amputation as a result of treatment failue and given the severity of the hallucinations and confusion, prefer to hold any further antibiotics until this has started to clear. ID consultation requested to guide the abx at this point. Patient himself is describing the hallucinations He is breathing normally on room air He doesn't appear in distress at this moment. He just finished a full tray of breakfast and is oriented to person place and time and can correctly identify the people sitting next to him. Some dizziness noted with EOM testing. Physical Exam Physical Exam: CONSTITUTIONAL: WNWD, vitals as above, generally NAD EYES: pupil are round and equal bilaterally, normal conjunctivae, no scleral icterus ENT: external ear and nose normal, MMM NECK: trachea midline RESPIRATORY: clear to auscultation bilaterally, no crackles, rales or wheezes, normal respiratory effort CARDIOVASCULAR: regular rate and rhythm, S1 and 2 heard without murmurs, gallops or rubs, no JVD, no peripheral edema CHEST: inspection of chest was normal GASTROINTESTINAL: soft, nontender, ND, no guarding. MUSCULOSKELETAL: strength 5/5 throughout, head is normocephalic and atraumatic, SKIN: warm and dry NEUROLOGIC: CN 2-12 grossly intact, no sensory deficit, normal cognition, normal speech, no tremor PSYCHIATRIC: alert cooperative and oriented to person, place and time. Euthymic mood, makes good eye contact, language grossly intact, recent and remote memory grossly intact. Results & Data Results & Data Vital Signs (Past 12 Hours) Vital Signs Temp Pulse Pulse Resp BP BP Pulse Ox 03/18/23 08:54 74 154/84 H 94 03/17/23 22:00 70 03/18/23 07:27 68 03/18/23 03:10 36.6 C 66 18 141/70 H 95 03/17/23 23:03 36.6 C 70 18 136/79 95 O2 Del Method 03/18/23 08:54 Room Air 03/17/23 22:00 03/18/23 07:27 03/18/23 03:10 Room Air 03/17/23 23:03 Room Air Laboratory Results Short CBC 03/17/23 03/18/23 Range/Units 20:30 06:18 WBC 6.77 7.41 (4.8-10.8) K/ul Hgb 11.3 L 10.9 L (14.0-18.0) g/dl Hct 32.9 L 31.4 L (42.0-52.0) % Plt Count 139 133 (130-400) K/uL BMP 03/17/23 03/18/23 20:30 06:18 Sodium 139 140 Potassium 4.1 3.8 Chloride 105 106 Carbon Dioxide 28 29 BUN 20 24 H Creatinine 1.80 H D 1.48 H D Glucose 105 H 113 H Calcium 9.1 8.9 Medications Administered Current Inpatient Medications Acetaminophen (Acetaminophen 325 Mg Tab) 650 mg PO Q4H PRN PRN Reason: Pain or Fever Stop: 04/14/23 21:43 Last Admin: 03/18/23 08:48 Dose: 650 mg Allopurinol (Allopurinol 300 Mg Tab) 300 mg PO DAILY [facility] Stop: 04/15/23 08:59 Last Admin: 03/18/23 08:49 Dose: 300 mg Aspirin (Aspirin 81 Mg Ectab) 81 mg PO DAILY [facility] Stop: 04/15/23 08:59 Last Admin: 03/18/23 08:50 Dose: 81 mg Atorvastatin Calcium (Atorvastatin 40 Mg Tab) 40 mg PO HS [facility] Stop: 04/14/23 21:43 Last Admin: 03/17/23 22:15 Dose: 40 mg Bupropion HCl (Bupropion Hcl 100 Mg Tablet) 100 mg PO DAILY [facility] Stop: 04/15/23 08:59 Last Admin: 03/17/23 08:34 Dose: 100 mg Cyanocobalamin (Cyanocobalamin (B-12) 500 Mcg Tablet) 1,000 mcg PO QAM [facility] Stop: 04/17/23 08:59 Last Admin: 03/18/23 08:49 Dose: 1,000 mcg Docusate Sodium (Docusate Sodium 100 Mg Cap) 100 mg PO DAILY PRN PRN Reason: Constipation Stop: 04/14/23 21:43 Enoxaparin Sodium (Enoxaparin Inj 40 Mg/0.4 Ml Syr) 40 mg SQ Q24H [facility] Stop: 04/15/23 08:59 Last Admin: 03/17/23 08:35 Dose: 40 mg Heparin Sodium (Beef Lung) (Heparin 10 Unit/Ml 5 Ml Flush) 5 ml FLUSH PRN PRN PRN Reason: Flush Stop: 04/16/23 10:24 Hydrochlorothiazide (Hydrochlorothiazide 25 Mg Tab) 12.5 mg PO QAM [facility] Stop: 04/16/23 08:59 Last Admin: 03/17/23 09:32 Dose: 12.5 mg Piperacillin Sod/Tazobactam (Sod 4.5 gm/ Dextrose) 100 mls @ 25 mls/hr IV Q8H [facility]; Protocol Stop: 04/29/23 13:59 Ibuprofen (Ibuprofen 600 Mg Tab) 600 mg PO TID PRN PRN Reason: pain (not relieved by tylenol) Stop: 04/14/23 21:43 Lisinopril (Lisinopril 20 Mg Tab) 20 mg PO BID [facility] Stop: 04/15/23 08:59 Last Admin: 03/17/23 22:14 Dose: Not Given Metoprolol Succinate (Metoprolol Succ 50mg Ext Rel Tab) 50 mg PO DAILY [facility] Stop: 04/15/23 08:59 Last Admin: 03/18/23 08:55 Dose: 50 mg Pantoprazole Sodium (Pantoprazole 40 Mg Tab) 40 mg PO DAILY [facility] Stop: 04/15/23 08:59 Last Admin: 03/18/23 08:49 Dose: 40 mg Polyethylene Glycol (Polyethylene (Miralax) 17 Gm Pack) 17 gm PO DAILY PRN PRN Reason: Constipation Stop: 04/14/23 21:43 Venlafaxine HCl (Venlafaxine Hcl Xr 37.5 Mg Capxr) 37.5 mg PO DAILY [facility] Stop: 04/15/23 08:59 Last Admin: 03/18/23 08:49 Dose: 37.5 mg
[2023-03-18] MEDS ORDERED: PIPERACILLIN/TAZOBACTAM 4.5 GM in DEXTROSE 5% MINI-B 100 ML IV SCH (14:00)
[2023-03-18] MEDS: ATORVASTATIN 40 MG TAB PO SCH (20:18)
--- NOTE | 2023-03-18 21:48 | Electroencephalogram ---
EEG Procedure Note Date of Service March 18, 2023 Start / End Times Start Time: 07:33 End Time: 07:[address] 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 EEG performed for evaluation of epileptiform activity. Home Medication List Medication Instructions Recorded Confirmed Type allopurinol 300 mg tablet 300 mg PO DAILY 03/15/23 03/15/23 History aspirin 81 mg tablet 81 mg PO DAILY 03/15/23 03/15/23 History atorvastatin 40 mg tablet 40 mg PO HS 03/15/23 03/15/23 History bupropion HCl 100 mg tablet 100 mg PO DAILY 03/15/23 03/15/23 History docusate sodium 100 mg capsule 100 mg PO DAILY PRN Constipation 03/15/23 03/15/23 History ertapenem 1 gram intravenous 1 g IV DAILY 03/15/23 03/15/23 History solution ibuprofen 800 mg tablet 800 mg PO TID pain 03/15/23 03/15/23 History lisinopril 20 1 tab PO BID 03/15/23 03/15/23 History mg-hydrochlorothiazide 12.5 mg tablet metoprolol succinate 50 mg 50 mg PO DAILY 03/15/23 03/15/23 History tablet,extended release 24 hr omeprazole 40 mg capsule,delayed 40 mg PO DAILY 03/15/23 03/15/23 History release venlafaxine 37.5 mg 37.5 mg PO DAILY 03/15/23 03/15/23 History capsule,extended release 24 hr Inpatient Medication List Acetaminophen (Acetaminophen 325 Mg Tab) 650 mg PO Q4H PRN PRN Reason: Pain or Fever Stop: 04/14/23 21:43 Last Admin: 03/18/23 08:48 Dose: 650 mg Documented By: AUSTIN Allopurinol (Allopurinol 300 Mg Tab) 300 mg PO DAILY [facility] Stop: 04/15/23 08:59 Last Admin: 03/18/23 08:49 Dose: 300 mg Documented By: Admin: 03/17/23 08:34 Dose: 300 mg Documented By: Admin: 03/16/23 08:11 Dose: 300 mg Documented By: STEPH Aspirin (Aspirin 81 Mg Ectab) 81 mg PO DAILY [facility] Stop: 04/15/23 08:59 Last Admin: 03/18/23 08:50 Dose: 81 mg Documented By: Admin: 03/17/23 08:34 Dose: 81 mg Documented By: Admin: 03/16/23 08:10 Dose: 81 mg Documented By: STEPH Atorvastatin Calcium (Atorvastatin 40 Mg Tab) 40 mg PO HS [facility] Stop: 04/14/23 21:43 Last Admin: 03/18/23 20:18 Dose: 40 mg Documented By: Admin: 03/17/23 22:15 Dose: 40 mg Documented By: Admin: 03/16/23 21:39 Dose: 40 mg Documented By: Admin: 03/16/23 01:00 Dose: 40 mg Documented By: ABEL Bupropion HCl (Bupropion Hcl 100 Mg Tablet) 100 mg PO DAILY [facility] Stop: 04/15/23 08:59 Last Admin: 03/17/23 08:34 Dose: 100 mg Documented By: Admin: 03/16/23 08:11 Dose: 100 mg Documented By: STEPH Cyanocobalamin (Cyanocobalamin (B-12) 500 Mcg Tablet) 1,000 mcg PO QAM [facility] Stop: 04/17/23 08:59 Last Admin: 03/18/23 08:49 Dose: 1,000 mcg Documented By: AUSTIN Enoxaparin Sodium (Enoxaparin Inj 40 Mg/0.4 Ml Syr) 40 mg SQ Q24H [facility] Stop: 04/15/23 08:59 Last Admin: 03/17/23 08:35 Dose: 40 mg Documented By: Admin: 03/16/23 08:11 Dose: 40 mg Documented By: STEPH Hydrochlorothiazide (Hydrochlorothiazide 25 Mg Tab) 12.5 mg PO QAM [facility] Stop: 04/16/23 08:59 Last Admin: 03/17/23 09:32 Dose: 12.5 mg Documented By: POLLO Lisinopril (Lisinopril 20 Mg Tab) 20 mg PO BID [facility] Stop: 04/15/23 08:59 Last Admin: 03/17/23 22:14 Dose: Not Given Documented By: Admin: 03/17/23 08:33 Dose: 20 mg Documented By: Admin: 03/16/23 21:39 Dose: 20 mg Documented By: Admin: 03/16/23 08:11 Dose: 20 mg Documented By: STEPH Metoprolol Succinate (Metoprolol Succ 50mg Ext Rel Tab) 50 mg PO DAILY [facility] Stop: 04/15/23 08:59 Last Admin: 03/18/23 08:55 Dose: 50 mg Documented By: Admin: 03/17/23 08:34 Dose: 50 mg Documented By: Admin: 03/16/23 08:11 Dose: 50 mg Documented By: STEPH Pantoprazole Sodium (Pantoprazole 40 Mg Tab) 40 mg PO DAILY [facility] Stop: 04/15/23 08:59 Last Admin: 03/18/23 08:49 Dose: 40 mg Documented By: Admin: 03/17/23 08:33 Dose: 40 mg Documented By: Admin: 03/16/23 08:10 Dose: 40 mg Documented By: STEPH Venlafaxine HCl (Venlafaxine Hcl Xr 37.5 Mg Capxr) 37.5 mg PO DAILY [facility] Stop: 04/15/23 08:59 Last Admin: 03/18/23 08:49 Dose: 37.5 mg Documented By: Admin: 03/17/23 08:33 Dose: 37.5 mg Documented By: Admin: 03/16/23 08:11 Dose: 37.5 mg Documented By: STEPH Discontinued Medications Sodium Chloride (Nss) 1,000 mls @ 125 mls/hr IV .Q8H [facility] Stop: 03/15/23 23:44 Last Infusion: 03/15/23 23:55 Dose: 0 mls/hr Documented By: Admin: 03/15/23 16:42 Dose: 125 mls/hr Documented By: LAZARA Lactated Ringer's (Lr) 1,000 mls @ 100 mls/hr IV .Q10H [facility] Stop: 03/16/23 07:43 Last Infusion: 03/16/23 08:21 Dose: 0 mls/hr Documented By: Admin: 03/16/23 02:07 Dose: 100 mls/hr Documented By: ABEL Ertapenem 1,000 mg/ Syringe 10 mls @ 2 mls/min IV Q24H [facility] Stop: 04/27/23 08:59 Last Admin: 03/17/23 08:35 Dose: 2 mls/min Documented By: Admin: 03/16/23 08:14 Dose: 2 mls/min Documented By: STEPH Sodium Chloride (Nss) 1,000 mls @ 100 mls/hr IV .Q10H ONE Stop: 03/18/23 05:53 Last Infusion: 03/18/23 07:30 Dose: 0 mls/hr Documented By: Admin: 03/17/23 22:15 Dose: 100 mls/hr Documented By: ABEL Magnesium Sulfate/Dextrose (Magnesium Sulfate / D5w) 1 gm in 100 mls @ 50 mls/hr IV ONE ONE Stop: 03/17/23 21:54 Last Infusion: 03/18/23 00:35 Dose: 0 mls/hr Documented By: Admin: 03/17/23 22:15 Dose: 50 mls/hr Documented By: TRN Lisinopril (Lisinopril 20 Mg Tab) 20 mg PO NOW ONE Stop: 03/15/23 19:38 Last Admin: 03/15/23 20:22 Dose: 20 mg Documented By: SPORTS PSYCHOLOGIST Miscellaneous Information (Patient's Allergy Info Needs Entered) 1 each N/A ONE STA Stop: 03/15/23 21:49 Last Admin: 03/15/23 23:51 Dose: 1 each Documented By: ABEL Description This is a 21 electrode EEG with a single channel dedicated to limited EKG. The electrodes were placed in accordance with the International 10-20 system. REPORT: At the onset of the EEG the patient is awake. The background is symmetric although disorganized with loss of the normal anterior to posterior gradient. The background consist of 5-7 theta activity with some intermixed alpha activity. There is frequent movement artifact from patient moving his head. No stage II sleep transients are seen. Interpretation IMPRESSION: This is an abnormal routine EEG due to generalized background slowing suggestive of a non specific encephaloapthy. No electrographic seizures or epileptiform activity are seen.
[2023-03-18 22:35] LABS: Appearance Urine Clear (Clear); Bilirubin Urine Negative (Negative); Blood Urine Negative (Negative); Color Urine Yellow; Glucose Urine UA Negative (Negative); Ketones Urine Negative (Negative); Leukocyte Esterase Urine Negative (Negative); Nitrite Urine Negative (Negative); Protein Urine Negative (Negative); Specific Gravity Urine 1.018 (1.000-1.030); Urobilinogen Urine Negative (Negative); pH Urine 6.5 (4.5-7.5)
[2023-03-19 07:36] LABS: Hematocrit (blood only) 33.8 % (42.0-52.0); Hemoglobin 11.5 g/dl (14.0-18.0); Mean Corpuscular Hemoglobin 29.8 pg (25.0-34.0); Mean Corpuscular Volume 87.6 fL (80.0-100.0); Mean Platelet Volume 9.3 fL (9.4-12.4); Platelet Count 146 K/uL (130-400); RDW Coefficient of Variation 12.7 % (11.5-14.5); RDW Standard Deviation 40.6 fL (36.4-46.3); Red Blood Count 3.86 M/uL (4.70-6.10); White Blood Count 7.94 K/ul (4.8-10.8)
[2023-03-19 07:43] LABS: BUN Creatinine Ratio 21.3 (10-20); Calcium 9.3 mg/dl (8.6-10.3); Creatinine Clr Calc Pharmacy 57.7 ml/min; Est GFR (African American) 63.6 ml/min; Est GFR (Non-African American) 54.9 ml/min; Magnesium 1.8 mg/dl (1.7-2.4); Phosphorus 2.9 mg/dl (2.5-4.9); Potassium 3.9 mmol/L (3.5-5.1)
[2023-03-19] MEDS: ASPIRIN 81 MG ECTAB PO SCH (07:49)
[2023-03-19] MEDS: PANTOprazole 40 MG TAB PO SCH (07:49)
[2023-03-19] MEDS: allopurinoL 300 MG TAB PO SCH (07:49)
[2023-03-19] MEDS: METOPROLOL SUCC 50MG EXT REL TAB PO SCH (07:49)
[2023-03-19] MEDS: VENLAFAXINE HCL XR 37.5 MG CAPXR PO SCH (07:49)
[2023-03-19] MEDS: CYANOCOBALAMIN (B-12) 500 MCG TABLET PO SCH (07:50)
--- NOTE | 2023-03-19 08:58 | Hospitalist Progress Note ---
Date of Service March 19, 2023 Assessment & Plan (1) AMS (altered mental status): Plan: New constellation of symptoms including intermittent confusion, increased tremulousness, brain fog and fatigue have been ongoing for the past week, continue to worsen. Workup including brain MRI, CBC, chem panel, TSH, Lyme panel, 25OH vit D, B12/folate all WNL. Head CT, CXR clear. No evidence of UTI. At this point, adding back his BP meds has not improved his symptoms (these had been stopped around the time symptoms became more evident prior to arrival). Dr. Blanca discussed the case wtih Dr. Grupo Simental from [facility], who was familiar with patient's case from his consultation on 02/18/23. He argues against changing to ceftriaxone because we have no microbiological data from [facility] (there was no wound culture or surgical debridement perfor med and there were blood cultures that were negative) and a previous wound culture from over the summer had grown Enterobacter, so with ceftriaxone there was the possibility of amp-C inducibility and treatment failure. After discussing the risks and benefits of alternatives, Zosyn 4.5gm IV q6hrs was recommended. Although this dosing is frequent at home, he only had ten days of treatment left. The family is now concerned for any antibiotic and prefers to hold off on additional antimicrobial therapies for now until his encephalopathy resolves. His current hallucinations, dizziness, and tremors are thought to be a combination of ertapenem side effect, infection, and a worsening of his known REM sleep disorder in the setting of untreated SHANNON and bupropion use, which was held. Will cont to hold Zosyn for now and await further thoughts from [place]. Notably his inflammatory markers are normal. (2) Osteomyelitis: Plan: ongoing treatment of active infection. Plan as above. Foot looks good with negative inflammatory markers at this point. Follow-up with his primary care physician closely after discharge. (3) HTN (hypertension): Plan: chronic, controlled. Continue Toprol, lisinopril and added back HCTZ (4) CAD (coronary artery disease): Plan: H/o stents in 2006, 2009. No CP, stable. Continue aspirin, statin, beta gela (5) Anxiety: Plan: chronic, appears stable. (6) Depression: Plan: chronic, stable. Continue bupropion, venlafaxine per home regimen. (7) SHANNON (obstructive sleep apnea): Plan: Intolerant to CPAP. risks of not being compliant with treatment for SHANNON reviewed, including the increased risk of mortality. states that previous doctors have not given him a solid working diagnosis for his sleep issues and patient offers these symptoms were also present with his brother. Outpatient pulm/Sleep medicine followup recommended once he has completed the osteomyelitis therapy. DVT Ppx: SQ lovenox Code status: FULL PCP: Martínez Aguirre) Dispo: med tele Admission and Anticipated Discharge Date Admission Date: March 17, 2023 Subjective 73 yo M on ertapenem for the past few weeks for right toe osteomyelitis presents with intermittent confusion, hallucinations, abnormal hand movement. + persistent hallucinations + tremulousness when sleeping Family at the bedside, awaiting ID consult family prefers to hold any further antibiotics until this has started to clear, this was also in detail discussed with family yesterday w/ previous provider ID consultation requested yesterday to guide the abx at this point. Dr. Cruz contacted today. Patient himself is describing the hallucinations He is breathing normally on room air He doesn't appear in distress at this moment. He has good appetite and is oriented to person place and time and can correctly identify the people sitting next to him. Review of Systems Review of Systems: All systems reviewed & are unremarkable except as noted in Subjective Physical Exam Physical Exam: CONSTITUTIONAL: WNWD, M in NAD EYES: pupil are round and equal bilaterally, normal conjunctivae, no scleral icterus ENT: external ear and nose normal, MMM NECK: trachea midline RESPIRATORY: clear to auscultation bilaterally, no crackles, rales or wheezes, normal respiratory effort CARDIOVASCULAR: regular rate and rhythm, S1 and 2 heard without murmurs, no JVD, no peripheral edema CHEST: inspection of chest normal GASTROINTESTINAL: soft, nontender, ND, no guarding, + obese MUSCULOSKELETAL: head is normocephalic and atraumatic, moves extremities SKIN: warm and dry NEUROLOGIC: awake and alert, answers appropriately, follows commands, speech fluent, no facial asymmetry, moves extremities Results & Data Results & Data Vital Signs (Past 12 Hours) Vital Signs Temp Pulse Pulse Resp BP BP Pulse Ox 03/19/23 08:01 03/19/23 07:14 36.8 C 63 16 152/79 H 93 03/19/23 07:32 65 03/19/23 03:16 36.6 C 67 18 160/78 H 95 03/18/23 21:59 68 03/18/23 22:20 36.6 C 67 18 157/67 H 94 O2 Del Method 03/19/23 08:01 Room Air 03/19/23 07:14 Room Air 03/19/23 07:32 03/19/23 03:16 Room Air 03/18/23 21:59 03/18/23 22:20 Room Air Laboratory Results 03/19/23 03/19/23 03/18/23 Range/Units 06:51 06:51 22:18 WBC 7.94 (4.8-10.8) K/ul RBC 3.86 L (4.70-6.10) M/uL Hgb 11.5 L (14.0-18.0) g/dl Hct 33.8 L (42.0-52.0) % MCV 87.6 (80.0-100.0) fL MCH 29.8 (25.0-34.0) pg MCHC 34.0 (32.0-36.0) g/dL RDW Std Deviation 40.6 (36.4-46.3) fL RDW Coeff of Favio 12.7 (11.5-14.5) % Plt Count 146 (130-400) K/uL MPV 9.3 L (9.4-12.4) fL Sodium 141 (136-145) mmol/L Potassium 3.9 (3.5-5.1) mmol/L Chloride 108 H (98-107) mmol/L Carbon Dioxide 27 (21-32) mmol/L Anion Gap 6 (3-11) BUN 27 H (6-23) mg/dl Creatinine 1.27 (0.6-1.4) mg/dl Est Cr Clr Drug Dosing 57.7 ml/min Est GFR ( Amer) 63.6 ml/min Est GFR (Non-Af Amer) 54.9 ml/min BUN/Creatinine Ratio 21.3 H (10-20) Glucose 105 H (70-99(Fasting)) mg/dl Calcium 9.3 (8.6-10.3) mg/dl Phosphorus 2.9 (2.5-4.9) mg/dl Magnesium 1.8 (1.7-2.4) mg/dl Urine Color Yellow Urine Appearance Clear (Clear) Urine pH 6.5 (4.5-7.5) Ur Specific [place] 1.018 (1.000-1.030) Urine Protein Negative (Negative) Urine Glucose (UA) Negative (Negative) Urine Ketones Negative (Negative) Urine Blood Negative (Negative) Urine Nitrite Negative (Negative) Urine Bilirubin Negative (Negative) Urine Urobilinogen Negative (Negative) Ur Leukocyte Esterase Negative (Negative) Medications Administered Current Inpatient Medications Acetaminophen (Acetaminophen 325 Mg Tab) 650 mg PO Q4H PRN PRN Reason: Pain or Fever Stop: 04/14/23 21:43 Last Admin: 03/18/23 08:48 Dose: 650 mg Allopurinol (Allopurinol 300 Mg Tab) 300 mg PO DAILY [facility] Stop: 04/15/23 08:59 Last Admin: 03/19/23 07:49 Dose: 300 mg Aspirin (Aspirin 81 Mg Ectab) 81 mg PO DAILY [facility] Stop: 04/15/23 08:59 Last Admin: 03/19/23 07:49 Dose: 81 mg Atorvastatin Calcium (Atorvastatin 40 Mg Tab) 40 mg PO HS [facility] Stop: 04/14/23 21:43 Last Admin: 03/18/23 20:18 Dose: 40 mg Bupropion HCl (Bupropion Hcl 100 Mg Tablet) 100 mg PO DAILY [facility] Stop: 04/15/23 08:59 Last Admin: 03/17/23 08:34 Dose: 100 mg Cyanocobalamin (Cyanocobalamin (B-12) 500 Mcg Tablet) 1,000 mcg PO QAM [facility] Stop: 04/17/23 08:59 Last Admin: 03/19/23 07:50 Dose: 1,000 mcg Docusate Sodium (Docusate Sodium 100 Mg Cap) 100 mg PO DAILY PRN PRN Reason: Constipation Stop: 04/14/23 21:43 Enoxaparin Sodium (Enoxaparin Inj 40 Mg/0.4 Ml Syr) 40 mg SQ Q24H [facility] Stop: 04/15/23 08:59 Last Admin: 03/17/23 08:35 Dose: 40 mg Ergocalciferol (Ergocalciferol 50,000 Units 1250 Mcg Cap) 50,000 units PO Q7D@0900 [facility] Stop: 04/18/23 08:59 Last Admin: 03/19/23 07:50 Dose: 50,000 units Heparin Sodium (Beef Lung) (Heparin 10 Unit/Ml 5 Ml Flush) 5 ml FLUSH PRN PRN PRN Reason: Flush Stop: 04/16/23 10:24 Hydrochlorothiazide (Hydrochlorothiazide 25 Mg Tab) 12.5 mg PO QAM [facility] Stop: 04/16/23 08:59 Last Admin: 03/17/23 09:32 Dose: 12.5 mg Piperacillin Sod/Tazobactam (Sod 4.5 gm/ Dextrose) 100 mls @ 25 mls/hr IV Q8H [facility]; Protocol Stop: 04/29/23 13:59 Ibuprofen (Ibuprofen 600 Mg Tab) 600 mg PO TID PRN PRN Reason: pain (not relieved by tylenol) Stop: 04/14/23 21:43 Lisinopril (Lisinopril 20 Mg Tab) 20 mg PO BID [facility] Stop: 04/15/23 08:59 Last Admin: 03/17/23 22:14 Dose: Not Given Metoprolol Succinate (Metoprolol Succ 50mg Ext Rel Tab) 50 mg PO DAILY [facility] Stop: 04/15/23 08:59 Last Admin: 03/19/23 07:49 Dose: 50 mg Pantoprazole Sodium (Pantoprazole 40 Mg Tab) 40 mg PO DAILY [facility] Stop: 04/15/23 08:59 Last Admin: 03/19/23 07:49 Dose: 40 mg Polyethylene Glycol (Polyethylene (Miralax) 17 Gm Pack) 17 gm PO DAILY PRN PRN Reason: Constipation Stop: 04/14/23 21:43 Venlafaxine HCl (Venlafaxine Hcl Xr 37.5 Mg Capxr) 37.5 mg PO DAILY [facility] Stop: 04/15/23 08:59 Last Admin: 03/19/23 07:49 Dose: 37.5 mg
[2023-03-19] MEDS ORDERED: ERGOCALCIFEROL 50,000 UNITS 1250 MCG CAP PO SCH (09:00)
[2023-03-19] MEDS: guaiFENesin 600 MG TABCR PO SCH ×2 (14:41→20:57)
[2023-03-19] MEDS: SODIUM CHLORIDE 0.9% 1,000 ML IV SCH (14:46)
[2023-03-19] MEDS: ATORVASTATIN 40 MG TAB PO SCH (20:58)
[2023-03-19] MEDS ORDERED: ALBUT/IPRATROP 3MG/0.5MG NEB 3 ML VIAL NEB PRN (21:12)
[2023-03-19] MEDS: ACETAMINOPHEN 325 MG TAB PO PRN (23:56)
[2023-03-20] MEDS: SODIUM CHLORIDE 0.9% 1,000 ML IV SCH ×2 (01:59→14:02)
[2023-03-20 07:16] LABS: Hematocrit (blood only) 31.5 % (42.0-52.0); Hemoglobin 10.8 g/dl (14.0-18.0); Mean Corpuscular Hemoglobin 30.3 pg (25.0-34.0); Mean Corpuscular Hgb Conc 34.3 g/dL (32.0-36.0); Mean Corpuscular Volume 88.2 fL (80.0-100.0); Mean Platelet Volume 9.3 fL (9.4-12.4); Platelet Count 144 K/uL (130-400); RDW Coefficient of Variation 12.5 % (11.5-14.5); RDW Standard Deviation 40.5 fL (36.4-46.3); Red Blood Count 3.57 M/uL (4.70-6.10); White Blood Count 7.35 K/ul (4.8-10.8)
[2023-03-20 07:46] LABS: BUN Creatinine Ratio 22.5 (10-20); Calcium 8.5 mg/dl (8.6-10.3); Creatinine Clr Calc Pharmacy 56.8 ml/min; Est GFR (African American) 62.4 ml/min; Est GFR (Non-African American) 53.9 ml/min; Magnesium 1.7 mg/dl (1.7-2.4); Phosphorus 3.1 mg/dl (2.5-4.9); Potassium 3.8 mmol/L (3.5-5.1)
[2023-03-20] MEDS: allopurinoL 300 MG TAB PO SCH (08:47)
[2023-03-20] MEDS: ASPIRIN 81 MG ECTAB PO SCH (08:47)
[2023-03-20] MEDS: guaiFENesin 600 MG TABCR PO SCH ×2 (08:48→20:41)
[2023-03-20] MEDS: CYANOCOBALAMIN (B-12) 500 MCG TABLET PO SCH (08:48)
[2023-03-20] MEDS: METOPROLOL SUCC 50MG EXT REL TAB PO SCH (08:48)
[2023-03-20] MEDS: PANTOprazole 40 MG TAB PO SCH (08:49)
[2023-03-20] MEDS: VENLAFAXINE HCL XR 37.5 MG CAPXR PO SCH (08:49)
[2023-03-20] MEDS ORDERED: MAGNESIUM SULFATE / D5W 1 GM/100 ML BAG IV ONE (08:53)
--- NOTE | 2023-03-20 08:54 | Hospitalist Progress Note ---
Date of Service March 20, 2023 Assessment & Plan (1) AMS (altered mental status): Plan: New constellation of symptoms including intermittent confusion, increased tremulousness, brain fog and fatigue have been ongoing for the past week, continue to worsen. Workup including brain MRI, CBC, chem panel, TSH, Lyme panel, 25OH vit D, B12/folate all WNL. Head CT, CXR clear. No evidence of UTI. At this point, adding back his BP meds has not improved his symptoms (these had been stopped around the time symptoms became more evident prior to arrival). Dr. Blanca discussed the case wtih Dr. Grupo Simental from [facility], who was familiar with patient's case from his consultation on 02/18/23. He argues against changing to ceftriaxone because we have no microbiological data from [facility] (there was no wound culture or surgical debridement perfor med and there were blood cultures that were negative) and a previous wound culture from over the summer had grown Enterobacter, so with ceftriaxone there was the possibility of amp-C inducibility and treatment failure. After discussing the risks and benefits of alternatives, Zosyn 4.5gm IV q6hrs was recommended. Although this dosing is frequent at home, he only had ten days of treatment left. The family is now concerned for any antibiotic and prefers to hold off on additional antimicrobial therapies for now until his encephalopathy resolves. His current hallucinations, dizziness, and tremors are thought to be a combination of ertapenem side effect, infection, and a worsening of his known REM sleep disorder in the setting of untreated SHANNON and bupropion use, which was held. Will cont to hold Zosyn for now and await further thoughts from OR. Notably his inflammatory markers are normal. (2) Osteomyelitis: Plan: ongoing treatment of active infection. Plan as above. Foot looks good with negative inflammatory markers at this point. Follow-up with his primary care physician closely after discharge. (3) HTN (hypertension): Plan: chronic, controlled. Continue Toprol, lisinopril and added back HCTZ (4) CAD (coronary artery disease): Plan: H/o stents in 2006, 2009. No CP, stable. Continue aspirin, statin, beta gela (5) Anxiety: Plan: chronic, appears stable. (6) Depression: Plan: chronic, stable. Continue bupropion, venlafaxine per home regimen. (7) SHANNON (obstructive sleep apnea): Plan: Intolerant to CPAP. risks of not being compliant with treatment for SHANNON reviewed, including the increased risk of mortality. states that previous doctors have not given him a solid working diagnosis for his sleep issues and patient offers these symptoms were also present with his brother. Outpatient pulm/Sleep medicine followup recommended once he has completed the osteomyelitis therapy. DVT Ppx: SQ lovenox Code status: FULL PCP: Martínez Aguirre) Dispo: med tele Admission and Anticipated Discharge Date Admission Date: March 17, 2023 Subjective 73 yo M on ertapenem for the past few weeks for right toe osteomyelitis presents with intermittent confusion, hallucinations, abnormal hand movement. + persistent hallucinations + tremulousness when sleeping Family at the bedside, awaiting ID consult family prefers to hold any further antibiotics until this has started to clear, this was also in detail discussed with family also w/ previous provider Currently pt is answering appropriately He is breathing normally on room air, reports some cough and congestion - obtained CXR He has good appetite. Review of Systems Review of Systems: All systems reviewed & are unremarkable except as noted in Subjective Physical Exam Physical Exam: CONSTITUTIONAL: WNWD, M in NAD EYES: pupil are round and equal bilaterally, normal conjunctivae, no scleral icterus ENT: external ear and nose normal, MMM NECK: trachea midline RESPIRATORY: clear to auscultation bilaterally, no crackles, rales or wheezes, normal respiratory effort CARDIOVASCULAR: regular rate and rhythm, S1 and 2 heard without murmurs, no JVD, no peripheral edema CHEST: inspection of chest normal GASTROINTESTINAL: soft, nontender, ND, no guarding, + obese MUSCULOSKELETAL: head is normocephalic and atraumatic, moves extremities SKIN: warm and dry NEUROLOGIC: awake and alert, answers appropriately, follows commands, speech fluent, no facial asymmetry, moves extremities Results & Data Results & Data Vital Signs (Past 12 Hours) Vital Signs Temp Pulse Pulse Resp BP Pulse Ox O2 Del Method 03/20/23 07:30 70 03/20/23 07:24 36.8 C 66 18 160/83 H 95 Room Air 03/20/23 03:07 37 C 72 18 175/90 H 95 Room Air 03/20/23 01:22 36.9 C 03/20/23 00:29 71 16 95 Room Air 03/19/23 22:48 77 03/19/23 23:15 37.8 C H 76 20 170/75 H 95 Room Air Laboratory Results 03/20/23 03/20/23 Range/Units 06:08 06:08 WBC 7.35 (4.8-10.8) K/ul RBC 3.57 L (4.70-6.10) M/uL Hgb 10.8 L (14.0-18.0) g/dl Hct 31.5 L (42.0-52.0) % MCV 88.2 (80.0-100.0) fL MCH 30.3 (25.0-34.0) pg MCHC 34.3 (32.0-36.0) g/dL RDW Std Deviation 40.5 (36.4-46.3) fL RDW Coeff of Favio 12.5 (11.5-14.5) % Plt Count 144 (130-400) K/uL MPV 9.3 L (9.4-12.4) fL Sodium 143 (136-145) mmol/L Potassium 3.8 (3.5-5.1) mmol/L Chloride 111 H (98-107) mmol/L Carbon Dioxide 26 (21-32) mmol/L Anion Gap 6 (3-11) BUN 29 H (6-23) mg/dl Creatinine 1.29 (0.6-1.4) mg/dl Est Cr Clr Drug Dosing 56.8 ml/min Est GFR ( Amer) 62.4 ml/min Est GFR (Non-Af Amer) 53.9 ml/min BUN/Creatinine Ratio 22.5 H (10-20) Glucose 106 H (70-99(Fasting)) mg/dl Calcium 8.5 L (8.6-10.3) mg/dl Phosphorus 3.1 (2.5-4.9) mg/dl Magnesium 1.7 (1.7-2.4) mg/dl Medications Administered Current Inpatient Medications Acetaminophen (Acetaminophen 325 Mg Tab) 650 mg PO Q4H PRN PRN Reason: Pain or Fever Stop: 04/14/23 21:43 Last Admin: 03/19/23 23:56 Dose: 650 mg Albuterol (Albut/Ipratrop 3mg/0.5mg Neb 3 Ml Vial) 3 ml NEB Q4R PRN; Protocol PRN Reason: Shortness Of Breath Or Wheezing Stop: 04/18/23 22:59 Last Admin: 03/20/23 00:29 Dose: 3 ml Allopurinol (Allopurinol 300 Mg Tab) 300 mg PO DAILY MARCIN Stop: 04/15/23 08:59 Last Admin: 03/19/23 07:49 Dose: 300 mg Aspirin (Aspirin 81 Mg Ectab) 81 mg PO DAILY MARCIN Stop: 04/15/23 08:59 Last Admin: 03/19/23 07:49 Dose: 81 mg Atorvastatin Calcium (Atorvastatin 40 Mg Tab) 40 mg PO HS MARCIN Stop: 04/14/23 21:43 Last Admin: 03/19/23 20:58 Dose: 40 mg Bupropion HCl (Bupropion Hcl 100 Mg Tablet) 100 mg PO DAILY [facility] Stop: 04/15/23 08:59 Last Admin: 03/17/23 08:34 Dose: 100 mg Cyanocobalamin (Cyanocobalamin (B-12) 500 Mcg Tablet) 1,000 mcg PO QAM [facility] Stop: 04/17/23 08:59 Last Admin: 03/19/23 07:50 Dose: 1,000 mcg Docusate Sodium (Docusate Sodium 100 Mg Cap) 100 mg PO DAILY PRN PRN Reason: Constipation Stop: 04/14/23 21:43 Enoxaparin Sodium (Enoxaparin Inj 40 Mg/0.4 Ml Syr) 40 mg SQ Q24H [facility] Stop: 04/15/23 08:59 Last Admin: 03/17/23 08:35 Dose: 40 mg Ergocalciferol (Ergocalciferol 50,000 Units 1250 Mcg Cap) 50,000 units PO Q7D@0900 [facility] Stop: 04/18/23 08:59 Last Admin: 03/19/23 07:50 Dose: 50,000 units Guaifenesin (Guaifenesin 600 Mg Tabcr) 600 mg PO Q12 M[facility]IN Stop: 04/18/23 13:59 Last Admin: 03/19/23 20:57 Dose: 600 mg Heparin Sodium (Beef Lung) (Heparin 10 Unit/Ml 5 Ml Flush) 5 ml FLUSH PRN PRN PRN Reason: Flush Stop: 04/16/23 10:24 Hydrochlorothiazide (Hydrochlorothiazide 25 Mg Tab) 12.5 mg PO QAM M[facility]IN Stop: 04/16/23 08:59 Last Admin: 03/17/23 09:32 Dose: 12.5 mg Piperacillin Sod/Tazobactam (Sod 4.5 gm/ Dextrose) 100 mls @ 25 mls/hr IV Q8H [facility]; Protocol Stop: 04/29/23 13:59 Sodium Chloride (Nss) 1,000 mls @ 80 mls/hr IV .[id number] [facility] Stop: 04/18/23 13:59 Last Admin: 03/20/23 01:59 Dose: 80 mls/hr Magnesium Sulfate/Dextrose (Magnesium Sulfate / D5w) 1 gm in 100 mls @ 50 mls/hr IV ONE ONE Stop: 03/20/23 10:52 Ibuprofen (Ibuprofen 600 Mg Tab) 600 mg PO TID PRN PRN Reason: pain (not relieved by tylenol) Stop: 04/14/23 21:43 Lisinopril (Lisinopril 20 Mg Tab) 20 mg PO BID [facility] Stop: 04/15/23 08:59 Last Admin: 03/17/23 22:14 Dose: Not Given Metoprolol Succinate (Metoprolol Succ 50mg Ext Rel Tab) 50 mg PO DAILY [facility] Stop: 04/15/23 08:59 Last Admin: 03/19/23 07:49 Dose: 50 mg Pantoprazole Sodium (Pantoprazole 40 Mg Tab) 40 mg PO DAILY [facility] Stop: 04/15/23 08:59 Last Admin: 03/19/23 07:49 Dose: 40 mg Polyethylene Glycol (Polyethylene (Miralax) 17 Gm Pack) 17 gm PO DAILY PRN PRN Reason: Constipation Stop: 04/14/23 21:43 Venlafaxine HCl (Venlafaxine Hcl Xr 37.5 Mg Capxr) 37.5 mg PO DAILY [facility] Stop: 04/15/23 08:59 Last Admin: 03/19/23 07:49 Dose: 37.5 mg
[2023-03-20] MEDS ORDERED: COUGH DROP (SUGAR FREE) LOZ 24 LOZ/1 BOX BUCCAL PRN (15:42)
--- NOTE | 2023-03-20 15:43 | XRay Report ---
XR chest 1V portable CLINICAL HISTORY: cough, chest pain TECHNIQUE: Single frontal radiograph of the chest was obtained. Comparison: Comparison is made to chest radiograph 03/15/2023 FINDINGS: Right PICC is unchanged. Cardiomegaly is noted. The lungs are clear. No evidence of pleural effusion or pneumothorax. IMPRESSION: No acute abnormalities and in particular no radiographic evidence of pneumonia. ACT 112: Negative or not required by law. Electronically signed by: Azeem Campos M.D. 03/20/2023 3:41 PM
[2023-03-20] MEDS ORDERED: FAMOTIDINE 20 MG in SYRINGE 3 ML IV ONE (15:44)
--- NOTE | 2023-03-20 16:18 | Infectious Disease Consult ---
Date of Service March 20, 2023 Telehealth Information I performed this visit using a real-time telehealth connection between my location and the patients location ([facility]). After connecting through interactive tele-video, patient was identified by name and date of and/or wristband check.Patient (or authorized healthcare help desk representative) was informed that this was a telemedicine visit and it was being conducted confidentially over secure lines. My office door was closed and no one else was present in the room with me.Patient (or authorized healthcare help desk representative) provided consent to proceed with the visit, expressed an understanding of privacy and security of the telemedicine visit, and gave permission to have a hospital help desk representative in the room in order to assist with the visit and to conduct portions of the visit, as needed. I informed the patient (or authorized healthcare help desk representative) that I reviewed their record and presented the opportunity for them to ask any questions regarding the visit today. The patient agreed to participate. Assessment & Plan (1) AMS (altered mental status): Plan: Etiology unclear, but would be atypical for side effect of ertapenem. Nonetheless, recommend continuing to hold therapy. No other clear infectious cause, though syphilis screening may be considered. (2) Osteomyelitis: Plan: Exam is benign and mild erosive changes on the XR are not obviously infectious in nature. No wound or micro studies to guide us. Outcomes of medical management for distal phalangyeal osteomyelitis tend to be very poor anyway and amputation is always recommended. In his case, I suspect he does not need any abx therapy and would suggest we hold any further abx. A repeat ESR can be obtained in a month to ensure no changes depending on his clinical course. ID will otherwise sign off for now. Please call with any questions or should his clinical course change. History of Present Illness History of Present Illness Mr. Chamberlain was admitted to [facility] on 03/15/23 with confusion and hypertension. He has a h/o recurrent cellulitis and gout and has been getting prednisone intermittently for his foot. Last month, however when it was red he had an MRI that showed erosive bone changes in the distal phalanx of his 4th toe on his right foot. He was empirically started on IV ertapenem (no cultures or surgical intervention was performed). Plans were to extend therapy x 6 weeks. Over the past couple of weeks, however, he was struggling at home with increasing lethargy, malaise, confusion and even hallucinations. He was admitted to [facility] with still plans for 2 more weeks of therapy but this has been held with the assumption that ertapenem could be to blame. He is seen today with his and son who help give additional history. The patient answers most questions appropriately but became increasingly confused during the interview and disoriented as to location and situation. No fevers reported. No rash. No N/V. No diarrhea. Allergies Allergy/AdvReac Type Severity Reaction Status Date / Time moxifloxacin [From Avelox] Allergy Unknown Unknown Verified 03/15/23 23:42 Home Medications Medication Instructions Recorded Confirmed Type allopurinol 300 mg tablet 300 mg PO DAILY 03/15/23 03/15/23 History aspirin 81 mg tablet 81 mg PO DAILY 03/15/23 03/15/23 History atorvastatin 40 mg tablet 40 mg PO HS 03/15/23 03/15/23 History bupropion HCl 100 mg tablet 100 mg PO DAILY 03/15/23 03/15/23 History docusate sodium 100 mg capsule 100 mg PO DAILY PRN Constipation 03/15/23 03/15/23 History ertapenem 1 gram intravenous 1 g IV DAILY 03/15/23 03/15/23 History solution ibuprofen 800 mg tablet 800 mg PO TID pain 03/15/23 03/15/23 History lisinopril 20 1 tab PO BID 03/15/23 03/15/23 History mg-hydrochlorothiazide 12.5 mg tablet metoprolol succinate 50 mg 50 mg PO DAILY 03/15/23 03/15/23 History tablet,extended release 24 hr omeprazole 40 mg capsule,delayed 40 mg PO DAILY 03/15/23 03/15/23 History release venlafaxine 37.5 mg 37.5 mg PO DAILY 03/15/23 03/15/23 History capsule,extended release 24 hr Patient History Medical History Anxiety CAD (coronary artery disease) Depression Gout HTN (hypertension) SHANNON (obstructive sleep apnea) Osteomyelitis REM sleep behavior disorder Surgical History H/O Spinal surgery Hx of tonsillectomy S/P appendectomy Stented coronary artery 2009 Family History Other Cancer Heart disease Prostate cancer Social History Hx Alcohol Use: No (quit ) Hx Substance Use: No Communication Ability: Effective Current Living Situation: Alone Current Living Situation Comment: home health and help from family Assistive Devices: Cane and Walker Review of Systems ROS except as noted in the HPI is otherwise negative. Physical Exam GEN- NAD Psych- Confusion and disorientation as to location and situation during interview noted HEENT- OP clear Neck- ROM intact Respiration- breathing rate normal on room air MSK- Examination of feet shows no ulcers, erythema or wounds Ext- No edema Skin- No rash Results & Data Vital Signs (Past 12 Hours) Vital Signs Temp Pulse Pulse Resp BP BP Pulse Ox 03/20/23 15:23 36.6 C 69 16 126/74 95 03/20/23 11:29 36.6 C 73 20 186/83 H 96 03/20/23 09:30 03/20/23 07:30 70 03/20/23 07:24 36.8 C 66 18 160/83 H 95 O2 Del Method 03/20/23 15:23 Room Air 03/20/23 11:29 Room Air 03/20/23 09:30 Room Air 03/20/23 07:30 03/20/23 07:24 Room Air Laboratory Results WBC 7.35 (mild eosinophilia) Hgb 10.8 Platelets 144 CRP <0.5 ESR 11 Na 143 Creatinine 1.29 BUN 29 UA with 5-10 WBC, 0-4 RBC Diagnostic Findings Brain MRI from 03/15/23 reviewed by me: no obvious pathology XR of foot from 02/13/23 reviewed by me: mild erosive changes on distal phalanx o f 4th digit of right foot No cultures available to review Lyme EIA negative
[2023-03-20] MEDS: BENZONATATE 100 MG CAPSULE PO SCH ×2 (16:55→20:41)
[2023-03-20] MEDS: SODIUM CHLORIDE 0.65% NA SOLN 45 ML (OCEAN) SCH ×2 (16:55→20:41)
[2023-03-20] MEDS: ATORVASTATIN 40 MG TAB PO SCH (20:41)
[2023-03-20] MEDS ORDERED: HALOPERIDOL LACTATE 5 MG/ML 1 ML VIAL IM STA (23:31)
[2023-03-21] MEDS ORDERED: hydrALAZINE HCL 20 MG/ML VIAL IV ONE (07:34)
[2023-03-21] MEDS ORDERED: hydrOXYzine HCl 25 MG TAB PO STA (07:35)
[2023-03-21] MEDS ORDERED: MELATONIN 3 MG TAB PO PRN (07:52)
--- NOTE | 2023-03-21 07:57 | Hospitalist Progress Note ---
Date of Service March 21, 2023 Assessment & Plan (1) AMS (altered mental status): Plan: New constellation of symptoms including intermittent confusion, increased tremulousness, brain fog and fatigue have been ongoing for the past week, continue to worsen. Workup including brain MRI, CBC, chem panel, TSH, Lyme panel, 25OH vit D, B12/folate all WNL. Head CT, CXR clear. No evidence of UTI. At this point, adding back his BP meds has not improved his symptoms (these had been stopped around the time symptoms became more evident prior to arrival). Dr. Blanca discussed the case wtih Dr. Grupo Simental from [facility], who was familiar with patient's case from his consultation on 02/18/23. He argues against changing to ceftriaxone because we have no microbiological data from [facility] (there was no wound culture or surgical debridement perfor med and there were blood cultures that were negative) and a previous wound culture from over the summer had grown Enterobacter, so with ceftriaxone there was the possibility of amp-C inducibility and treatment failure. After discussing the risks and benefits of alternatives, Zosyn 4.5gm IV q6hrs was recommended. Although this dosing is frequent at home, he only had ten days of treatment left. The family is now concerned for any antibiotic and prefers to hold off on additional antimicrobial therapies for now until his encephalopathy resolves. His current hallucinations, dizziness, and tremors are thought to be a combination of ertapenem side effect, infection, and a worsening of his known REM sleep disorder in the setting of untreated SHANNON and bupropion use, which was held. Will cont to hold Zosyn for now and await further thoughts from ID. Notably his inflammatory markers are normal. ID consulted - NO abx recommended at this time Contacted neurology again today (03/21/2023). Recommended to start melatonin in the evening. Do not recommend Haldol. If needed for agitation, clonazepam 0.5 as needed can be used. Bupropion restarted as EEG did not show seizure. Also if melatonin not helpful, recommend pramipexole 0.25 starting tomorrow night. (2) Osteomyelitis: Plan: ongoing treatment of active infection. Plan as above. Foot looks good with negative inflammatory markers at this point. Follow-up with his primary care physician closely after discharge. ID consulted - Exam is benign and mild erosive changes on the XR are not obviously infectious in nature. No wound or micro studies to guide us. Outcomes of medical management for distal phalangyeal osteomyelitis tend to be very poor anyway and amputation is always recommended. In his case, I suspect he does not need any abx therapy and would suggest we hold any further abx. A repeat ESR can be obtained in a month to ensure no changes depending on his clinical course. (3) HTN (hypertension): Plan: chronic, controlled. Continue Toprol, lisinopril , hold HCTZ, as poor fluid intake (4) CAD (coronary artery disease): Plan: H/o stents in 2006, 2009. No CP, stable. Continue aspirin, statin, beta gela (5) Anxiety: Plan: chronic, appears stable. (6) Depression: Plan: chronic, stable. Continue bupropion -restarted after discussing w/ neurology, venlafaxine per home regimen. (7) SHANNON (obstructive sleep apnea): Plan: Intolerant to CPAP. risks of not being compliant with treatment for SHANNON reviewed, including the increased risk of mortality. states that previous doctors have not given him a solid working diagnosis for his sleep issues and patient offers these symptoms were also present with his brother. Outpatient pulm/Sleep medicine followup recommended once he has completed the osteomyelitis therapy. DVT Ppx: SQ lovenox Code status: FULL PCP: Martínez Aguirre) Dispo: med tele Admission and Anticipated Discharge Date Admission Date: March 17, 2023 Subjective 73 yo M on ertapenem for the past few weeks for right toe osteomyelitis presents with intermittent confusion, hallucinations, abnormal hand movement. + persistent hallucinations + tremulousness when sleeping Family at the bedside family prefers to hold any further antibiotics until this has started to clear, this was also in detail discussed with family also w/ previous provider ID recommends NO abx Patient received small dose of Haldol overnight, due to agitation. Patient currently still having difficulty with getting any sleep. Contacted neurology again today. Recommended to start melatonin in the evening. Do not recommend Haldol. If needed for agitation, clonazepam 0.5 as needed can be used. Bupropion restarted as EEG did not show seizure. Also if melatonin not helpful, recommend pramipexole 0.25 starting tomorrow night. Review of Systems Review of Systems: All systems reviewed & are unremarkable except as noted in Subjective Physical Exam Physical Exam: CONSTITUTIONAL: WNWD, M in NAD EYES: pupil are round and equal bilaterally, normal conjunctivae, no scleral icterus ENT: external ear and nose normal, MMM NECK: trachea midline RESPIRATORY: clear to auscultation bilaterally, no crackles, rales or wheezes, normal respiratory effort CARDIOVASCULAR: regular rate and rhythm, S1 and 2 heard without murmurs, no JVD, no peripheral edema CHEST: inspection of chest normal GASTROINTESTINAL: soft, nontender, ND, no guarding, + obese MUSCULOSKELETAL: head is normocephalic and atraumatic, moves extremities SKIN: warm and dry NEUROLOGIC: awake and alert, answers appropriately, follows commands, speech fluent, no facial asymmetry, moves extremities Results & Data Results & Data Vital Signs (Past 12 Hours) Vital Signs Temp Pulse Pulse Resp BP BP Pulse Ox 03/21/23 07:24 36.6 C 84 18 197/100 H 94 03/21/23 00:49 76 03/20/23 23:54 03/20/23 22:38 36.5 C 59 L 20 166/73 H 95 03/20/23 20:39 36.6 C 65 20 161/80 H 96 O2 Del Method 03/21/23 07:24 Room Air 03/21/23 00:49 03/20/23 23:54 Room Air 03/20/23 22:38 Room Air 03/20/23 20:39 Room Air Laboratory Results 03/21/23 03/21/23 Range/Units 09:34 09:34 WBC 7.85 (4.8-10.8) K/ul RBC 3.96 L (4.70-6.10) M/uL Hgb 11.8 L (14.0-18.0) g/dl Hct 34.7 L (42.0-52.0) % MCV 87.6 (80.0-100.0) fL MCH 29.8 (25.0-34.0) pg MCHC 34.0 (32.0-36.0) g/dL RDW Std Deviation 40.3 (36.4-46.3) fL RDW Coeff of Favio 12.6 (11.5-14.5) % Plt Count 162 (130-400) K/uL MPV 8.9 L (9.4-12.4) fL Sodium 142 (136-145) mmol/L Potassium 3.9 (3.5-5.1) mmol/L Chloride 109 H (98-107) mmol/L Carbon Dioxide 25 (21-32) mmol/L Anion Gap 8 (3-11) BUN 25 H (6-23) mg/dl Creatinine 1.24 (0.6-1.4) mg/dl Est Cr Clr Drug Dosing 59.1 ml/min Est GFR ( Amer) 65.5 ml/min Est GFR (Non-Af Amer) 56.5 ml/min BUN/Creatinine Ratio 20.2 H (10-20) Glucose 130 H (70-99(Fasting)) mg/dl Calcium 9.2 (8.6-10.3) mg/dl Phosphorus 2.7 (2.5-4.9) mg/dl Magnesium 1.8 (1.7-2.4) mg/dl Medications Administered Current Inpatient Medications Acetaminophen (Acetaminophen 325 Mg Tab) 650 mg PO Q4H PRN PRN Reason: Pain or Fever Stop: 04/14/23 21:43 Last Admin: 03/19/23 23:56 Dose: 650 mg Albuterol (Albut/Ipratrop 3mg/0.5mg Neb 3 Ml Vial) 3 ml NEB Q4R PRN; Protocol PRN Reason: Shortness Of Breath Or Wheezing Stop: 04/18/23 22:59 Last Admin: 03/20/23 00:29 Dose: 3 ml Allopurinol (Allopurinol 300 Mg Tab) 300 mg PO DAILY MARCIN Stop: 04/15/23 08:59 Last Admin: 03/20/23 08:47 Dose: 300 mg Aspirin (Aspirin 81 Mg Ectab) 81 mg PO DAILY MARCIN Stop: 04/15/23 08:59 Last Admin: 03/20/23 08:47 Dose: 81 mg Atorvastatin Calcium (Atorvastatin 40 Mg Tab) 40 mg PO HS MARCIN Stop: 04/14/23 21:43 Last Admin: 03/20/23 20:41 Dose: 40 mg Benzonatate (Benzonatate 100 Mg Capsule) 100 mg PO TID MARCIN Stop: 04/19/23 15:29 Last Admin: 03/20/23 20:41 Dose: 100 mg Bupropion HCl (Bupropion Hcl 100 Mg Tablet) 100 mg PO DAILY MARCIN Stop: 04/15/23 08:59 Last Admin: 03/17/23 08:34 Dose: 100 mg Cyanocobalamin (Cyanocobalamin (B-12) 500 Mcg Tablet) 1,000 mcg PO QAM [facility] Stop: 04/17/23 08:59 Last Admin: 03/20/23 08:48 Dose: 1,000 mcg Docusate Sodium (Docusate Sodium 100 Mg Cap) 100 mg PO DAILY PRN PRN Reason: Constipation Stop: 04/14/23 21:43 Enoxaparin Sodium (Enoxaparin Inj 40 Mg/0.4 Ml Syr) 40 mg SQ Q24H [facility] Stop: 04/15/23 08:59 Last Admin: 03/17/23 08:35 Dose: 40 mg Ergocalciferol (Ergocalciferol 50,000 Units 1250 Mcg Cap) 50,000 units PO Q7D@0900 [facility] Stop: 04/18/23 08:59 Last Admin: 03/19/23 07:50 Dose: 50,000 units Guaifenesin (Guaifenesin 600 Mg Tabcr) 600 mg PO Q12 [facility] Stop: 04/18/23 13:59 Last Admin: 03/20/23 20:41 Dose: 600 mg Heparin Sodium (Beef Lung) (Heparin 10 Unit/Ml 5 Ml Flush) 5 ml FLUSH PRN PRN PRN Reason: Flush Stop: 04/16/23 10:24 Hydrochlorothiazide (Hydrochlorothiazide 25 Mg Tab) 12.5 mg PO QAM [facility] Stop: 04/16/23 08:59 Last Admin: 03/17/23 09:32 Dose: 12.5 mg Piperacillin Sod/Tazobactam (Sod 4.5 gm/ Dextrose) 100 mls @ 25 mls/hr IV Q8H [facility]; Protocol Stop: 04/29/23 13:59 Ibuprofen (Ibuprofen 600 Mg Tab) 600 mg PO TID PRN PRN Reason: pain (not relieved by tylenol) Stop: 04/14/23 21:43 Lisinopril (Lisinopril 20 Mg Tab) 20 mg PO BID [facility] Stop: 04/15/23 08:59 Last Admin: 03/17/23 22:14 Dose: Not Given Melatonin (Melatonin 3 Mg Tab) 3 mg PO HS PRN PRN Reason: Sleep Stop: 04/20/23 07:51 Menthol (Cough Drop (Sugar Free) Justin 24 Justin/1 Box) 1 justin BUCCAL Q2H PRN PRN Reason: Sore Throat Stop: 04/19/23 15:41 Last Admin: 03/20/23 15:59 Dose: 1 justin Metoprolol Succinate (Metoprolol Succ 50mg Ext Rel Tab) 50 mg PO DAILY MARCIN Stop: 04/15/23 08:59 Last Admin: 03/20/23 08:48 Dose: 50 mg Pantoprazole Sodium (Pantoprazole 40 Mg Tab) 40 mg PO DAILY MARCIN Stop: 04/15/23 08:59 Last Admin: 03/20/23 08:49 Dose: 40 mg Polyethylene Glycol (Polyethylene (Miralax) 17 Gm Pack) 17 gm PO DAILY PRN PRN Reason: Constipation Stop: 04/14/23 21:43 Sodium Chloride (Sodium Chloride 0.65% Na Soln 45 Ml ([place])) 1 sprays NA BID MARCIN Stop: 04/19/23 15:44 Last Admin: 03/20/23 20:41 Dose: 1 sprays Venlafaxine HCl (Venlafaxine Hcl Xr 37.5 Mg Capxr) 37.5 mg PO DAILY MARCIN Stop: 04/15/23 08:59 Last Admin: 03/20/23 08:49 Dose: 37.5 mg
[2023-03-21] MEDS: ACETAMINOPHEN 325 MG TAB PO PRN (08:28)
[2023-03-21] MEDS: guaiFENesin 600 MG TABCR PO SCH ×2 (08:29→20:36)
[2023-03-21] MEDS: ASPIRIN 81 MG ECTAB PO SCH (08:29)
[2023-03-21] MEDS: CYANOCOBALAMIN (B-12) 500 MCG TABLET PO SCH (08:29)
[2023-03-21] MEDS: METOPROLOL SUCC 50MG EXT REL TAB PO SCH (08:29)
[2023-03-21] MEDS: allopurinoL 300 MG TAB PO SCH (08:29)
[2023-03-21] MEDS: BENZONATATE 100 MG CAPSULE PO SCH ×3 (08:29→20:35)
[2023-03-21] MEDS: PANTOprazole 40 MG TAB PO SCH (08:30)
[2023-03-21] MEDS: VENLAFAXINE HCL XR 37.5 MG CAPXR PO SCH (08:30)
[2023-03-21] MEDS: SODIUM CHLORIDE 0.65% NA SOLN 45 ML (OCEAN) SCH ×2 (08:30→20:37)
[2023-03-21] MEDS ORDERED: clonazePAM 0.5 MG TAB PO PRN (09:37)
[2023-03-21 10:00] LABS: Hematocrit (blood only) 34.7 % (42.0-52.0); Hemoglobin 11.8 g/dl (14.0-18.0); Mean Corpuscular Hemoglobin 29.8 pg (25.0-34.0); Mean Corpuscular Volume 87.6 fL (80.0-100.0); Mean Platelet Volume 8.9 fL (9.4-12.4); Platelet Count 162 K/uL (130-400); RDW Coefficient of Variation 12.6 % (11.5-14.5); RDW Standard Deviation 40.3 fL (36.4-46.3); Red Blood Count 3.96 M/uL (4.70-6.10); White Blood Count 7.85 K/ul (4.8-10.8)
[2023-03-21 10:20] LABS: BUN Creatinine Ratio 20.2 (10-20); Calcium 9.2 mg/dl (8.6-10.3); Creatinine Clr Calc Pharmacy 59.1 ml/min; Est GFR (African American) 65.5 ml/min; Est GFR (Non-African American) 56.5 ml/min; Magnesium 1.8 mg/dl (1.7-2.4); Phosphorus 2.7 mg/dl (2.5-4.9); Potassium 3.9 mmol/L (3.5-5.1)
[2023-03-21] MEDS ORDERED: MELATONIN 3 MG TAB PO ONE (11:00)
[2023-03-21] MEDS: buPROPion HCl 100 MG TABLET PO SCH (12:36)
[2023-03-21] MEDS: ATORVASTATIN 40 MG TAB PO SCH (20:36)
[2023-03-21] MEDS: MELATONIN 3 MG TAB PO SCH (20:36)
[2023-03-21] MEDS: lisinopril 20 MG TAB PO SCH (20:37)
--- NOTE | 2023-03-21 21:20 | Electrocardiogram Report ---
Test Reason : Blood Pressure : / mmHG Vent. Rate : 069 BPM Atrial Rate : 069 BPM P-R Int : 210 ms QRS Dur : 094 ms QT Int : 420 ms P-R-T Axes : 046 -13 060 degrees QTc Int : 450 ms Sinus rhythm with 1st degree A-V block Otherwise normal ECG When compared with ECG of 15-MAR-2023 15:39, No significant change was found Confirmed by Bert Rome ([id number]) on 03/21/2023 9:20:26 PM Referred By: REFERRED SELF Confirmed By:Bert Rome
[2023-03-22 07:01] LABS: Hematocrit (blood only) 36.1 % (42.0-52.0); Hemoglobin 12.7 g/dl (14.0-18.0); Mean Corpuscular Hemoglobin 30.5 pg (25.0-34.0); Mean Corpuscular Hgb Conc 35.2 g/dL (32.0-36.0); Mean Corpuscular Volume 86.6 fL (80.0-100.0); Mean Platelet Volume 9.2 fL (9.4-12.4); Platelet Count 172 K/uL (130-400); RDW Standard Deviation 40.2 fL (36.4-46.3); Red Blood Count 4.17 M/uL (4.70-6.10); White Blood Count 7.95 K/ul (4.8-10.8)
[2023-03-22 07:24] LABS: Creatinine Clr Calc Pharmacy 65.9 ml/min; Est GFR (African American) 75.7 ml/min; Est GFR (Non-African American) 65.3 ml/min; Potassium 3.9 mmol/L (3.5-5.1)
[2023-03-22 07:25] LABS: BUN Creatinine Ratio 27.3 (10-20); Calcium 9.4 mg/dl (8.6-10.3); Phosphorus 3.6 mg/dl (2.5-4.9)
[2023-03-22] MEDS: CYANOCOBALAMIN (B-12) 500 MCG TABLET PO SCH (08:28)
[2023-03-22] MEDS: buPROPion HCl 100 MG TABLET PO SCH (08:28)
[2023-03-22] MEDS: ASPIRIN 81 MG ECTAB PO SCH (08:28)
[2023-03-22] MEDS: BENZONATATE 100 MG CAPSULE PO SCH ×3 (08:28→20:28)
[2023-03-22] MEDS: allopurinoL 300 MG TAB PO SCH (08:28)
[2023-03-22] MEDS: METOPROLOL SUCC 50MG EXT REL TAB PO SCH (08:29)
[2023-03-22] MEDS: SODIUM CHLORIDE 0.65% NA SOLN 45 ML (OCEAN) SCH ×2 (08:29→20:28)
[2023-03-22] MEDS: VENLAFAXINE HCL XR 37.5 MG CAPXR PO SCH (08:29)
[2023-03-22] MEDS: PANTOprazole 40 MG TAB PO SCH (08:29)
[2023-03-22] MEDS: guaiFENesin 600 MG TABCR PO SCH ×2 (08:29→20:27)
[2023-03-22] MEDS: lisinopril 20 MG TAB PO SCH ×2 (08:29→20:28)
--- NOTE | 2023-03-22 09:26 | Hospitalist Progress Note ---
Date of Service March 22, 2023 Assessment & Plan (1) AMS (altered mental status): Plan: Patient had presented with intermittent confusion, increased tremulousness, brain fog and fatigue have been ongoing for the past week. Workup including brain MRI, CBC, chem panel, TSH, Lyme panel, 25OH vit D, B12/folate all WNL. Head CT, CXR clear. No evidence of UTI. Dr. Blanca had discussed the case wtih Dr. Grupo Simental from [facility], who was familiar with patient's case from his consultation on 02/18/23. He argued against changing to ceftriaxone because we have no microbiological data from [facility] (there was no wound culture or surgical debridement performed and there were blood cultures that were negative) and a previous wound culture from over the summer had grown Enterobacter, so with ceftriaxone there was the possibility of amp-C inducibility and treatment failure. After discussing the risks and benefits of alternatives, Zosyn 4.5gm IV q6hrs was recommended. Although this dosing is frequent at home, he only had ten days of treatment left. The family was now concerned for any antibiotic and prefers to hold off on additional antimicrobial therapies for now until his encephalopathy resolves. His hallucinations, dizziness, and tremors were thought to be a combination of ertapenem side effect, infection and a worsening of his known REM sleep disorder in the setting of untreated SHANNON and bupropion use, which was held. ID recommendations noted No antibiotics for now Dr Simmons discussed with Neurology on 03/21/2023) and they recommended to start melatonin in the evening. Do not use Haldol. If needed for agitation, clonazepam 0.5 as needed can be used. Bupropion restarted as EEG did not show seizure. Also if melatonin not helpful, recommend pramipexole 0.25 HS Per RN and ACCOUNT MAINTENANCE REPRESENTATIVE report, it seems patient did well overnight. Will continue HS melatonin for now and monitor (2) Osteomyelitis: Plan: As above Negative inflammatory markers at this point. Follow-up with his primary care physician closely after discharge. ID evaluation and recommendations noted No antibiotics at this time (3) HTN (hypertension): Plan: Continue Toprol, lisinopril HCTZ currently on hold Monitor (4) CAD (coronary artery disease): Plan: H/o stents in 2006, 2009. No CP, stable. Continue aspirin, statin, beta gela (5) Anxiety: Plan: (6) Depression: Plan: Chronic Continue venlafaxine per home regimen Bupropion resumed as above (7) SHANNON (obstructive sleep apnea): Plan: Intolerant to CPAP. Previous Provider had reviewed this with family earlier. Outpatient pulm/Sleep medicine followup recommended on discharge DVT Ppx: SQ lovenox Code status: FULL PCP: Martínez Aguirre) Dispo: med tele I spent a total of 40 minutes coordinating, documenting and providing care for this patient excluding time spent in performance of separately billed services Admission and Anticipated Discharge Date Admission Date: March 17, 2023 Subjective Patient seen and examined Was sleeping when i entered his room but awoke to call He is alert and oriented to person, place, month and year When asked about what he remembers about his presentation or diagnoses, he stated he does not remember Currently denies any complaints. Denied headache, chest pain, SOB, cough, dizziness, nausea, vomiting, abd pain RN reported no events overnight ACCOUNT MAINTENANCE REPRESENTATIVE at bedside also reported this is the best patient has been and that he slept through the night Physical Exam Constitutional: + well hydrated; no acute distress Eyes: PERRL, conjunctivae normal, anicteric sclerae ENMT: external ear and nose normal, oropharynx normal Respiratory: normal respiratory effort, lungs clear to auscultation Cardiovascular: RRR S1 S2 Gastrointestinal (Abdomen): normal bowel sounds, soft, nontender, no hepatosplenomegaly Musculoskeletal: No pedal edema Neurologic: Alert and oriented to person, place, month and year Moves all extremities Psychiatric: Cooperative Results & Data Results & Data Vital Signs (Past 12 Hours) Vital Signs Temp Pulse Pulse Resp BP BP Pulse Ox 03/22/23 07:57 36.5 C 68 18 179/81 H 92 03/21/23 22:03 77 03/22/23 03:23 36.4 C L 62 20 168/78 H 95 03/21/23 22:34 36.9 C 75 18 164/84 H 94 O2 Del Method 03/22/23 07:57 Room Air 03/21/23 22:03 03/22/23 03:23 Room Air 03/21/23 22:34 Room Air Laboratory Results Abnormal lab results 03/21/23 03/21/23 03/22/23 Range/Units 09:34 09:34 06:05 RBC 3.96 L 4.17 L (4.70-6.10) M/uL Hgb 11.8 L 12.7 L (14.0-18.0) g/dl Hct 34.7 L 36.1 L (42.0-52.0) % MPV 8.9 L 9.2 L (9.4-12.4) fL Chloride 109 H (98-107) mmol/L BUN 25 H (6-23) mg/dl BUN/Creatinine Ratio 20.2 H (10-20) Glucose 130 H (70-99(Fasting)) mg/dl 03/22/23 Range/Units 06:05 RBC (4.70-6.10) M/uL Hgb (14.0-18.0) g/dl Hct (42.0-52.0) % MPV (9.4-12.4) fL Chloride 111 H (98-107) mmol/L BUN 30 H (6-23) mg/dl BUN/Creatinine Ratio 27.3 H (10-20) Glucose (70-99(Fasting)) mg/dl
[2023-03-22] MEDS: MELATONIN 3 MG TAB PO SCH (20:27)
[2023-03-22] MEDS: ATORVASTATIN 40 MG TAB PO SCH (20:28)
[2023-03-23 06:57] LABS: Hematocrit (blood only) 33.3 % (42.0-52.0); Hemoglobin 11.7 g/dl (14.0-18.0); Mean Corpuscular Hemoglobin 30.5 pg (25.0-34.0); Mean Corpuscular Hgb Conc 35.1 g/dL (32.0-36.0); Mean Corpuscular Volume 86.7 fL (80.0-100.0); Mean Platelet Volume 8.9 fL (9.4-12.4); Platelet Count 169 K/uL (130-400); RDW Coefficient of Variation 12.9 % (11.5-14.5); RDW Standard Deviation 40.7 fL (36.4-46.3); Red Blood Count 3.84 M/uL (4.70-6.10); White Blood Count 8.31 K/ul (4.8-10.8)
[2023-03-23 07:37] LABS: BUN Creatinine Ratio 26.3 (10-20); Calcium 9.1 mg/dl (8.6-10.3); Creatinine Clr Calc Pharmacy 54.5 ml/min; Est GFR (African American) 60.2 ml/min; Est GFR (Non-African American) 51.9 ml/min; Magnesium 1.8 mg/dl (1.7-2.4); Phosphorus 3.3 mg/dl (2.5-4.9); Potassium 3.8 mmol/L (3.5-5.1)
[2023-03-23] MEDS: BENZONATATE 100 MG CAPSULE PO SCH ×3 (07:39→20:34)
[2023-03-23] MEDS: lisinopril 20 MG TAB PO SCH ×2 (07:39→20:34)
[2023-03-23] MEDS: allopurinoL 300 MG TAB PO SCH (07:40)
[2023-03-23] MEDS: CYANOCOBALAMIN (B-12) 500 MCG TABLET PO SCH (07:40)
[2023-03-23] MEDS: guaiFENesin 600 MG TABCR PO SCH ×2 (07:40→20:40)
[2023-03-23] MEDS: METOPROLOL SUCC 50MG EXT REL TAB PO SCH (07:41)
[2023-03-23] MEDS: VENLAFAXINE HCL XR 37.5 MG CAPXR PO SCH (07:41)
[2023-03-23] MEDS: ASPIRIN 81 MG ECTAB PO SCH (07:41)
[2023-03-23] MEDS: PANTOprazole 40 MG TAB PO SCH (07:41)
[2023-03-23] MEDS: SODIUM CHLORIDE 0.65% NA SOLN 45 ML (OCEAN) SCH ×2 (07:44→20:33)
--- NOTE | 2023-03-23 08:24 | Hospitalist Progress Note ---
Date of Service March 23, 2023 Assessment & Plan (1) AMS (altered mental status): Plan: Patient had presented with intermittent confusion, increased tremulousness, brain fog and fatigue have been ongoing for the past week. Workup including brain MRI, CBC, chem panel, TSH, Lyme panel, 25OH vit D, B12/folate all WNL. Head CT, CXR clear. No evidence of UTI. Dr. Blanca had discussed the case wtih Dr. Grupo Simental from [facility], who was familiar with patient's case from his consultation on 02/18/23. He argued against changing to ceftriaxone because we have no microbiological data from [facility] (there was no wound culture or surgical debridement performed and there were blood cultures that were negative) and a previous wound culture from over the summer had grown Enterobacter, so with ceftriaxone there was the possibility of amp-C inducibility and treatment failure. After discussing the risks and benefits of alternatives, Zosyn 4.5gm IV q6hrs was recommended. Although this dosing is frequent at home, he only had ten days of treatment left. The family was now concerned for any antibiotic and prefers to hold off on additional antimicrobial therapies for now until his encephalopathy resolves. His hallucinations, dizziness, and tremors were thought to be a combination of ertapenem side effect, infection and a worsening of his known REM sleep disorder in the setting of untreated SHANNON and bupropion use, which was held. ID recommendations noted No antibiotics for now I discussed with Neurology on (03/21/2023) and they recommended to start melatonin in the evening. Do not use Haldol. If needed for agitation, ap nazepam 0.5 as needed can be used. Bupropion restarted as EEG did not show seizure. Also if melatonin not helpful, recommend pramipexole 0.25 HS Per RN and MECHANICAL DESIGN TECHNICIAN report, it seems patient did well overnight. Will continue HS melatonin for now and monitor (2) Osteomyelitis: Plan: As above Negative inflammatory markers at this point. Follow-up with his primary care physician closely after discharge. ID evaluation and recommendations noted - ID consulted - Exam is benign and mild erosive changes on the XR are not obviously infectious in nature. No wound or micro studies to guide us. Outcomes of medical management for distal phalangyeal osteomyelitis tend to be very poor anyway and amputation is always recommended. In his case, I suspect he does not need any abx therapy and would suggest we hold any further abx. A repeat ESR can be obtained in a month to ensure no changes depending on his clinical course. No antibiotics at this time (3) HTN (hypertension): Plan: Continue Toprol, lisinopril HCTZ currently on hold Monitor (4) CAD (coronary artery disease): Plan: H/o stents in 2006, 2009. No CP, stable. Continue aspirin, statin, beta gela (5) Anxiety: Plan: (6) Depression: Plan: Chronic Continue venlafaxine per home regimen Bupropion resumed as above (7) SHANNON (obstructive sleep apnea): Plan: Intolerant to CPAP. Previous Provider had reviewed this with family earlier. Outpatient pulm/Sleep medicine followup recommended on discharge DVT Ppx: SQ lovenox Code status: FULL PCP: Martínez Aguirre) Dispo: med tele Admission and Anticipated Discharge Date Admission Date: March 17, 2023 Subjective Patient seen and examined Pt is improved, able to get rest Tells me he has been able to get some sleep finally He is awake, alert and oriented, answering appropriately Currently denies any complaints. Denied headache, chest pain, SOB, cough, dizziness, nausea, vomiting, abd pain Review of Systems Review of Systems: All systems reviewed & are unremarkable except as noted in Subjective Physical Exam Physical Exam: CONSTITUTIONAL: WNWD, M in NAD EYES: pupil are round and equal bilaterally, normal conjunctivae, no scleral icterus ENT: external ear and nose normal, MMM NECK: trachea midline RESPIRATORY: clear to auscultation bilaterally, no crackles, rales or wheezes, normal respiratory effort CARDIOVASCULAR: regular rate and rhythm, S1 and 2 heard without murmurs, no JVD, no peripheral edema CHEST: inspection of chest normal GASTROINTESTINAL: soft, nontender, ND, no guarding, + obese MUSCULOSKELETAL: head is normocephalic and atraumatic, moves extremities SKIN: warm and dry NEUROLOGIC: awake and alert, answers appropriately, follows commands, speech fluent, no facial asymmetry, moves extremities Results & Data Results & Data Vital Signs (Past 12 Hours) Vital Signs Temp Pulse Pulse Resp BP BP Pulse Ox 03/23/23 08:14 36.8 C 64 18 145/80 H 96 03/23/23 08:12 88 03/23/23 03:36 36.7 C 67 18 135/69 93 03/22/23 21:58 70 03/22/23 23:09 36.6 C 66 18 122/74 94 O2 Del Method 03/23/23 08:14 Room Air 03/23/23 08:12 03/23/23 03:36 Room Air 03/22/23 21:58 03/22/23 23:09 Room Air Laboratory Results 03/23/23 03/23/23 Range/Units 06:23 06:23 WBC 8.31 (4.8-10.8) K/ul RBC 3.84 L (4.70-6.10) M/uL Hgb 11.7 L (14.0-18.0) g/dl Hct 33.3 L (42.0-52.0) % MCV 86.7 (80.0-100.0) fL MCH 30.5 (25.0-34.0) pg MCHC 35.1 (32.0-36.0) g/dL RDW Std Deviation 40.7 (36.4-46.3) fL RDW Coeff of Favio 12.9 (11.5-14.5) % Plt Count 169 (130-400) K/uL MPV 8.9 L (9.4-12.4) fL Sodium 140 (136-145) mmol/L Potassium 3.8 (3.5-5.1) mmol/L Chloride 107 (98-107) mmol/L Carbon Dioxide 26 (21-32) mmol/L Anion Gap 7 (3-11) BUN 35 H (6-23) mg/dl Creatinine 1.33 (0.6-1.4) mg/dl Est Cr Clr Drug Dosing 54.5 ml/min Est GFR ( Amer) 60.2 ml/min Est GFR (Non-Af Amer) 51.9 ml/min BUN/Creatinine Ratio 26.3 H (10-20) Glucose 114 H (70-99(Fasting)) mg/dl Calcium 9.1 (8.6-10.3) mg/dl Phosphorus 3.3 (2.5-4.9) mg/dl Magnesium 1.8 (1.7-2.4) mg/dl Medications Administered Current Inpatient Medications Acetaminophen (Acetaminophen 325 Mg Tab) 650 mg PO Q4H PRN PRN Reason: Pain or Fever Stop: 04/14/23 21:43 Last Admin: 03/21/23 08:28 Dose: 650 mg Albuterol (Albut/Ipratrop 3mg/0.5mg Neb 3 Ml Vial) 3 ml NEB Q4R PRN; Protocol PRN Reason: Shortness Of Breath Or Wheezing Stop: 04/18/23 22:59 Last Admin: 03/20/23 00:29 Dose: 3 ml Allopurinol (Allopurinol 300 Mg Tab) 300 mg PO DAILY [facility] Stop: 04/15/23 08:59 Last Admin: 03/23/23 07:40 Dose: 300 mg Aspirin (Aspirin 81 Mg Ectab) 81 mg PO DAILY [facility] Stop: 04/15/23 08:59 Last Admin: 03/23/23 07:41 Dose: 81 mg Atorvastatin Calcium (Atorvastatin 40 Mg Tab) 40 mg PO HS [facility] Stop: 04/14/23 21:43 Last Admin: 03/22/23 20:28 Dose: 40 mg Benzonatate (Benzonatate 100 Mg Capsule) 100 mg PO TID [facility] Stop: 04/19/23 15:29 Last Admin: 03/23/23 07:39 Dose: 100 mg Bupropion HCl (Bupropion Hcl 100 Mg Tablet) 100 mg PO DAILY [facility] Stop: 04/20/23 11:14 Last Admin: 03/22/23 08:28 Dose: 100 mg Clonazepam (Clonazepam 0.5 Mg Tab) 0.5 mg PO HS PRN PRN Reason: sleep, agitation Stop: 04/20/23 09:36 Cyanocobalamin (Cyanocobalamin (B-12) 500 Mcg Tablet) 1,000 mcg PO QAM [facility] Stop: 04/17/23 08:59 Last Admin: 03/23/23 07:40 Dose: 1,000 mcg Docusate Sodium (Docusate Sodium 100 Mg Cap) 100 mg PO DAILY PRN PRN Reason: Constipation Stop: 04/14/23 21:43 Last Admin: 03/21/23 08:29 Dose: 100 mg Enoxaparin Sodium (Enoxaparin Inj 40 Mg/0.4 Ml Syr) 40 mg SQ Q24H [facility] Stop: 04/15/23 08:59 Last Admin: 03/17/23 08:35 Dose: 40 mg Ergocalciferol (Ergocalciferol 50,000 Units 1250 Mcg Cap) 50,000 units PO Q7D@0900 [facility] Stop: 04/18/23 08:59 Last Admin: 03/19/23 07:50 Dose: 50,000 units Guaifenesin (Guaifenesin 600 Mg Tabcr) 600 mg PO Q12 [facility] Stop: 04/18/23 13:59 Last Admin: 03/23/23 07:40 Dose: 600 mg Heparin Sodium (Beef Lung) (Heparin 10 Unit/Ml 5 Ml Flush) 5 ml FLUSH PRN PRN PRN Reason: Flush Stop: 04/16/23 10:24 Last Admin: 03/22/23 10:51 Dose: 5 ml Hydrochlorothiazide (Hydrochlorothiazide 25 Mg Tab) 12.5 mg PO QAM [facility] Stop: 04/16/23 08:59 Last Admin: 03/17/23 09:32 Dose: 12.5 mg Ibuprofen (Ibuprofen 600 Mg Tab) 600 mg PO TID PRN PRN Reason: pain (not relieved by tylenol) Stop: 04/14/23 21:43 Lisinopril (Lisinopril 20 Mg Tab) 20 mg PO BID [facility] Stop: 04/15/23 08:59 Last Admin: 03/23/23 07:39 Dose: 20 mg Melatonin (Melatonin 3 Mg Tab) 3 mg PO HS [facility] Stop: 04/20/23 20:59 Last Admin: 03/22/23 20:27 Dose: 3 mg Menthol (Cough Drop (Sugar Free) Justin 24 Justin/1 Box) 1 justin BUCCAL Q2H PRN PRN Reason: Sore Throat Stop: 04/19/23 15:41 Last Admin: 03/20/23 15:59 Dose: 1 justin Metoprolol Succinate (Metoprolol Succ 50mg Ext Rel Tab) 50 mg PO DAILY [facility] Stop: 04/15/23 08:59 Last Admin: 03/23/23 07:41 Dose: 50 mg Pantoprazole Sodium (Pantoprazole 40 Mg Tab) 40 mg PO DAILY [facility] Stop: 04/15/23 08:59 Last Admin: 03/23/23 07:41 Dose: 40 mg Polyethylene Glycol (Polyethylene (Miralax) 17 Gm Pack) 17 gm PO DAILY PRN PRN Reason: Constipation Stop: 04/14/23 21:43 Last Admin: 03/21/23 08:30 Dose: 17 gm Sodium Chloride (Sodium Chloride 0.65% Na Soln 45 Ml ([place])) 1 sprays NA BID [facility] Stop: 04/19/23 15:44 Last Admin: 03/23/23 07:44 Dose: 1 sprays Venlafaxine HCl (Venlafaxine Hcl Xr 37.5 Mg Capxr) 37.5 mg PO DAILY [facility] Stop: 04/15/23 08:59 Last Admin: 03/23/23 07:41 Dose: 37.5 mg
[2023-03-23] MEDS: buPROPion HCl 100 MG TABLET PO SCH (09:16)
[2023-03-23] MEDS: ATORVASTATIN 40 MG TAB PO SCH (20:40)
[2023-03-23] MEDS: MELATONIN 3 MG TAB PO SCH (20:40)
[2023-03-24 07:20] LABS: Hematocrit (blood only) 33.1 % (42.0-52.0); Hemoglobin 11.2 g/dl (14.0-18.0); Mean Corpuscular Hemoglobin 30.1 pg (25.0-34.0); Mean Corpuscular Hgb Conc 33.8 g/dL (32.0-36.0); Mean Platelet Volume 9.2 fL (9.4-12.4); Platelet Count 171 K/uL (130-400); RDW Standard Deviation 42.1 fL (36.4-46.3); Red Blood Count 3.72 M/uL (4.70-6.10); White Blood Count 8.38 K/ul (4.8-10.8)
[2023-03-24 07:39] LABS: BUN Creatinine Ratio 25.2 (10-20); Calcium 8.9 mg/dl (8.6-10.3); Creatinine Clr Calc Pharmacy 56.1 ml/min; Est GFR (African American) 61.3 ml/min; Est GFR (Non-African American) 52.9 ml/min; Magnesium 1.8 mg/dl (1.7-2.4); Phosphorus 3.3 mg/dl (2.5-4.9); Potassium 3.7 mmol/L (3.5-5.1)
[2023-03-24] MEDS: SODIUM CHLORIDE 0.65% NA SOLN 45 ML (OCEAN) SCH ×2 (07:53→20:50)
[2023-03-24] MEDS: lisinopril 20 MG TAB PO SCH ×2 (07:53→20:49)
[2023-03-24] MEDS: VENLAFAXINE HCL XR 37.5 MG CAPXR PO SCH (07:53)
[2023-03-24] MEDS: buPROPion HCl 100 MG TABLET PO SCH (07:54)
[2023-03-24] MEDS: BENZONATATE 100 MG CAPSULE PO SCH ×3 (07:54→20:52)
[2023-03-24] MEDS: ASPIRIN 81 MG ECTAB PO SCH (07:54)
[2023-03-24] MEDS: CYANOCOBALAMIN (B-12) 500 MCG TABLET PO SCH (07:54)
[2023-03-24] MEDS: METOPROLOL SUCC 50MG EXT REL TAB PO SCH (07:54)
[2023-03-24] MEDS: PANTOprazole 40 MG TAB PO SCH (07:54)
[2023-03-24] MEDS: guaiFENesin 600 MG TABCR PO SCH ×2 (07:54→20:49)
[2023-03-24] MEDS: allopurinoL 300 MG TAB PO SCH (07:54)
--- NOTE | 2023-03-24 14:55 | Hospitalist Progress Note ---
Date of Service March 24, 2023 Assessment & Plan (1) AMS (altered mental status): Plan: Patient had presented with intermittent confusion, increased tremulousness, brain fog and fatigue have been ongoing for the past week. Workup including brain MRI, CBC, chem panel, TSH, Lyme panel, 25OH vit D, B12/folate all WNL. Head CT, CXR clear. No evidence of UTI. Dr. Blanca had discussed the case wtih Dr. Grupo Simental from [facility], who was familiar with patient's case from his consultation on 02/18/23. He argued against changing to ceftriaxone because we have no microbiological data from [facility] (there was no wound culture or surgical debridement performed and there were blood cultures that were negative) and a previous wound culture from over the summer had grown Enterobacter, so with ceftriaxone there was the possibility of amp-C inducibility and treatment failure. After discussing the risks and benefits of alternatives, Zosyn 4.5gm IV q6hrs was recommended. Although this dosing is frequent at home, he only had ten days of treatment left. The family was now concerned for any antibiotic and prefers to hold off on additional antimicrobial therapies for now until his encephalopathy resolves. His hallucinations, dizziness, and tremors were thought to be a combination of ertapenem side effect, infection and a worsening of his known REM sleep disorder in the setting of untreated SHANNON and bupropion use, which was held. ID recommendations noted No antibiotics for now I discussed with Neurology on (03/21/2023) and they recommended to start melatonin in the evening. Do not use Haldol. If needed for agitation, ap nazepam 0.5 as needed can be used. Bupropion restarted as EEG did not show seizure. Also if melatonin not helpful, recommend pramipexole 0.25 HS 03/24 Pt is now much improved , able to get rest / some sleep for the past few days. Will continue HS melatonin for now and monitor will order PT/OT in anticipation of DC (2) Osteomyelitis: Plan: As above Negative inflammatory markers at this point. Follow-up with his primary care physician closely after discharge. ID evaluation and recommendations noted - ID consulted - Exam is benign and mild erosive changes on the XR are not obviously infectious in nature. No wound or micro studies to guide us. Outcomes of medical management for distal phalangyeal osteomyelitis tend to be very poor anyway and amputation is always recommended. In his case, I suspect he does not need any abx therapy and would suggest we hold any further abx. A repeat ESR can be obtained in a month to ensure no changes depending on his clinical course. No antibiotics at this time (3) HTN (hypertension): Plan: Continue Toprol, lisinopril HCTZ currently on hold Monitor (4) CAD (coronary artery disease): Plan: H/o stents in 2006, 2009. No CP, stable. Continue aspirin, statin, beta gela (5) Anxiety: Plan: (6) Depression: Plan: Chronic Continue venlafaxine per home regimen Bupropion resumed as above (7) SHANNON (obstructive sleep apnea): Plan: Intolerant to CPAP. Previous Provider had reviewed this with family earlier. Outpatient pulm/Sleep medicine followup recommended on discharge DVT Ppx: SQ lovenox Code status: FULL PCP: Martínez Aguirre) Dispo: med tele Admission and Anticipated Discharge Date Admission Date: March 17, 2023 Subjective Patient seen and examined Pt is improved, able to get rest Tells me he has been able to get some sleep finally He is awake, alert and oriented, answering appropriately Currently denies any complaints. Denied headache, chest pain, SOB, cough, dizziness, nausea, vomiting, abd pain Pt's at the bedside and also confirms that pt is now much improved - back to his normal. Will obtain PT/OT and will plan for DC. Review of Systems Review of Systems: All systems reviewed & are unremarkable except as noted in Subjective Physical Exam Physical Exam: CONSTITUTIONAL: WNWD, M in NAD EYES: pupil are round and equal bilaterally, normal conjunctivae, no scleral icterus ENT: external ear and nose normal, MMM NECK: trachea midline RESPIRATORY: clear to auscultation bilaterally, no crackles, rales or wheezes, normal respiratory effort CARDIOVASCULAR: regular rate and rhythm, S1 and 2 heard without murmurs, no JVD, no peripheral edema CHEST: inspection of chest normal GASTROINTESTINAL: soft, nontender, ND, no guarding, + obese MUSCULOSKELETAL: head is normocephalic and atraumatic, moves extremities SKIN: warm and dry NEUROLOGIC: awake and alert, answers appropriately, follows commands, speech fluent, no facial asymmetry, moves extremities Results & Data Results & Data Vital Signs (Past 12 Hours) Vital Signs Temp Pulse Resp BP Pulse Ox O2 Del Method 03/24/23 11:22 36.6 C 68 18 137/75 94 Room Air 03/24/23 07:21 36.9 C 69 20 151/82 H 93 Room Air 03/24/23 03:07 Room Air Laboratory Results 03/24/23 03/24/23 Range/Units 06:29 06:29 WBC 8.38 (4.8-10.8) K/ul RBC 3.72 L (4.70-6.10) M/uL Hgb 11.2 L (14.0-18.0) g/dl Hct 33.1 L (42.0-52.0) % MCV 89.0 (80.0-100.0) fL MCH 30.1 (25.0-34.0) pg MCHC 33.8 (32.0-36.0) g/dL RDW Std Deviation 42.1 (36.4-46.3) fL RDW Coeff of Favio 13.0 (11.5-14.5) % Plt Count 171 (130-400) K/uL MPV 9.2 L (9.4-12.4) fL Sodium 141 (136-145) mmol/L Potassium 3.7 (3.5-5.1) mmol/L Chloride 109 H (98-107) mmol/L Carbon Dioxide 27 (21-32) mmol/L Anion Gap 5 (3-11) BUN 33 H (6-23) mg/dl Creatinine 1.31 (0.6-1.4) mg/dl Est Cr Clr Drug Dosing 56.1 ml/min Est GFR ( Amer) 61.3 ml/min Est GFR (Non-Af Amer) 52.9 ml/min BUN/Creatinine Ratio 25.2 H (10-20) Glucose 100 H (70-99(Fasting)) mg/dl Calcium 8.9 (8.6-10.3) mg/dl Phosphorus 3.3 (2.5-4.9) mg/dl Magnesium 1.8 (1.7-2.4) mg/dl Medications Administered Current Inpatient Medications Acetaminophen (Acetaminophen 325 Mg Tab) 650 mg PO Q4H PRN PRN Reason: Pain or Fever Stop: 04/14/23 21:43 Last Admin: 03/21/23 08:28 Dose: 650 mg Albuterol (Albut/Ipratrop 3mg/0.5mg Neb 3 Ml Vial) 3 ml NEB Q4R PRN; Protocol PRN Reason: Shortness Of Breath Or Wheezing Stop: 04/18/23 22:59 Last Admin: 03/20/23 00:29 Dose: 3 ml Allopurinol (Allopurinol 300 Mg Tab) 300 mg PO DAILY [facility] Stop: 04/15/23 08:59 Last Admin: 03/24/23 07:54 Dose: 300 mg Aspirin (Aspirin 81 Mg Ectab) 81 mg PO DAILY [facility] Stop: 04/15/23 08:59 Last Admin: 03/24/23 07:54 Dose: 81 mg Atorvastatin Calcium (Atorvastatin 40 Mg Tab) 40 mg PO HS [facility] Stop: 04/14/23 21:43 Last Admin: 03/23/23 20:40 Dose: 40 mg Benzonatate (Benzonatate 100 Mg Capsule) 100 mg PO TID [facility] Stop: 04/19/23 15:29 Last Admin: 03/24/23 13:04 Dose: 100 mg Bupropion HCl (Bupropion Hcl 100 Mg Tablet) 100 mg PO DAILY [facility] Stop: 04/20/23 11:14 Last Admin: 03/24/23 07:54 Dose: 100 mg Clonazepam (Clonazepam 0.5 Mg Tab) 0.5 mg PO HS PRN PRN Reason: sleep, agitation Stop: 04/20/23 09:36 Cyanocobalamin (Cyanocobalamin (B-12) 500 Mcg Tablet) 1,000 mcg PO QAM [facility] Stop: 04/17/23 08:59 Last Admin: 03/24/23 07:54 Dose: 1,000 mcg Docusate Sodium (Docusate Sodium 100 Mg Cap) 100 mg PO DAILY PRN PRN Reason: Constipation Stop: 04/14/23 21:43 Last Admin: 03/21/23 08:29 Dose: 100 mg Enoxaparin Sodium (Enoxaparin Inj 40 Mg/0.4 Ml Syr) 40 mg SQ Q24H [facility] Stop: 04/15/23 08:59 Last Admin: 03/17/23 08:35 Dose: 40 mg Ergocalciferol (Ergocalciferol 50,000 Units 1250 Mcg Cap) 50,000 units PO Q7D@0900 [facility] Stop: 04/18/23 08:59 Last Admin: 03/19/23 07:50 Dose: 50,000 units Guaifenesin (Guaifenesin 600 Mg Tabcr) 600 mg PO Q12 [facility] Stop: 04/18/23 13:59 Last Admin: 03/24/23 07:54 Dose: 600 mg Heparin Sodium (Beef Lung) (Heparin 10 Unit/Ml 5 Ml Flush) 5 ml FLUSH PRN PRN PRN Reason: Flush Stop: 04/16/23 10:24 Last Admin: 03/23/23 11:33 Dose: 5 ml Hydrochlorothiazide (Hydrochlorothiazide 25 Mg Tab) 12.5 mg PO QAM [facility] Stop: 04/16/23 08:59 Last Admin: 03/17/23 09:32 Dose: 12.5 mg Ibuprofen (Ibuprofen 600 Mg Tab) 600 mg PO TID PRN PRN Reason: pain (not relieved by tylenol) Stop: 04/14/23 21:43 Lisinopril (Lisinopril 20 Mg Tab) 20 mg PO BID [facility] Stop: 04/15/23 08:59 Last Admin: 03/24/23 07:53 Dose: 20 mg Melatonin (Melatonin 3 Mg Tab) 3 mg PO HS [facility] Stop: 04/20/23 20:59 Last Admin: 03/23/23 20:40 Dose: 3 mg Menthol (Cough Drop (Sugar Free) Justin 24 Justin/1 Box) 1 justin BUCCAL Q2H PRN PRN Reason: Sore Throat Stop: 04/19/23 15:41 Last Admin: 03/20/23 15:59 Dose: 1 justin Metoprolol Succinate (Metoprolol Succ 50mg Ext Rel Tab) 50 mg PO DAILY [facility] Stop: 04/15/23 08:59 Last Admin: 03/24/23 07:54 Dose: 50 mg Pantoprazole Sodium (Pantoprazole 40 Mg Tab) 40 mg PO DAILY [facility] Stop: 04/15/23 08:59 Last Admin: 03/24/23 07:54 Dose: 40 mg Polyethylene Glycol (Polyethylene (Miralax) 17 Gm Pack) 17 gm PO DAILY PRN PRN Reason: Constipation Stop: 04/14/23 21:43 Last Admin: 03/21/23 08:30 Dose: 17 gm Sodium Chloride (Sodium Chloride 0.65% Na Soln 45 Ml ([place])) 1 sprays NA BID [facility] Stop: 04/19/23 15:44 Last Admin: 03/24/23 07:53 Dose: 1 sprays Venlafaxine HCl (Venlafaxine Hcl Xr 37.5 Mg Capxr) 37.5 mg PO DAILY [facility] Stop: 04/15/23 08:59 Last Admin: 03/24/23 07:53 Dose: 37.5 mg
[2023-03-24] MEDS: ATORVASTATIN 40 MG TAB PO SCH (20:50)
[2023-03-24] MEDS: MELATONIN 3 MG TAB PO SCH (20:52)
[2023-03-25] MEDS: CYANOCOBALAMIN (B-12) 500 MCG TABLET PO SCH (07:30)
[2023-03-25] MEDS: PANTOprazole 40 MG TAB PO SCH (07:31)
[2023-03-25] MEDS: METOPROLOL SUCC 50MG EXT REL TAB PO SCH (07:31)
[2023-03-25] MEDS: allopurinoL 300 MG TAB PO SCH (07:31)
[2023-03-25] MEDS: guaiFENesin 600 MG TABCR PO SCH (07:32)
[2023-03-25] MEDS: ASPIRIN 81 MG ECTAB PO SCH (07:32)
[2023-03-25] MEDS: buPROPion HCl 100 MG TABLET PO SCH (07:32)
[2023-03-25] MEDS: VENLAFAXINE HCL XR 37.5 MG CAPXR PO SCH (07:33)
[2023-03-25] MEDS: SODIUM CHLORIDE 0.65% NA SOLN 45 ML (OCEAN) SCH (07:33)
[2023-03-25] MEDS: lisinopril 20 MG TAB PO SCH (07:33)
[2023-03-25] MEDS: BENZONATATE 100 MG CAPSULE PO SCH (07:35)
--- NOTE | 2023-03-25 11:53 | Discharge Summary ---
Date of Service March 25, 2023 Admission HPI Per Admitting Provider This is a 73yo M with a PMH of R fourth toe cellulitis/osteomyelitis who presents with AMS per family. Other PMH includes CAD (s/p PK in 2006 and 2009), HTN, anxiety, depression, gout, SHANNON intolerant to CPAP. Has recent history of cellulitis/osteomyelitis of the right fourth toe for which he was admitted at [facility] about a month ago and has been on IV ertapenem via PICC line for the last 4 weeks. Has 2 weeks remaining of the course.Patient's family states they have noticed patient to be more lethargic and confused over the last several days including delirium.Has a sleep disorder at baseline and has fallen out of bed several times but he is uncertain if he hit his head. This has been going on for many years and does not sound like it has changed recently. Patient endorses increased fatigue and some exertional dyspnea but denies any F/C, lightheadedness, CP, SOB, N/V, abdominal pain, dysuria, diarrhea or constipation. Has chronic numbness and tingling on bottoms of feet. Stopped his lisinopril 2 days ago per PCP but does not know why. Endorses SHANNON but intolerant to CPAP 2/2 sleep disorder with extensive movement overnight where he would knock off mask. Follows with Dr. Soliz of [facility] in [place]. Admission Exam Per Admitting Provider Per ED provider: General: Well-appearing 73-year-old male, in no significant distress. HEENT: No scleral icterus, PERRLA, neck supple. Atraumatic. Dry mucous membranes. Cardiovascular: Regular rate and rhythm, no extra sounds. Pulmonary: Clear to auscultation bilaterally, normal work of breathing. Abdomen: Soft, nontender, nondistended, positive bowel sounds. Musculoskeletal: Atraumatic, no peripheral edema. Neurologic: Patient awake alert and oriented x 3, speech is clear. Cranial nerves II through XII are grossly intact. Skin: Warm, dry, no rash Principal Diagnosis Encephalopathy likely secondary to antibiotic - ertapenem toe OM Discharge Exam CONSTITUTIONAL: WNWD, M in NAD EYES: pupil are round and equal bilaterally, normal conjunctivae, no scleral icterus ENT: external ear and nose normal, MMM NECK: trachea midline RESPIRATORY: clear to auscultation bilaterally, no crackles, rales or wheezes, normal respiratory effort CARDIOVASCULAR: regular rate and rhythm, S1 and 2 heard without murmurs, no JVD, no peripheral edema CHEST: inspection of chest normal GASTROINTESTINAL: soft, nontender, ND, no guarding, + obese MUSCULOSKELETAL: head is normocephalic and atraumatic, moves extremities SKIN: warm and dry NEUROLOGIC: awake and alert, answers appropriately, follows commands, speech fluent, no facial asymmetry, moves extremities Discharge Data Allergies Allergy/AdvReac Type Severity Reaction Status Date / Time moxifloxacin [From Avelox] Allergy Unknown Unknown Verified 03/15/23 23:42 Consultations 03/15/23 18:20 ED Decision to Admit Stat 03/16/23 22:09 Consult Neurology Routine 03/18/23 09:53 Consult Infectious Diseases Routine Ordered Studies 03/15/23 15:50 CT head/brain wo con Stat FINDINGS: No acute intracranial hemorrhage, midline shift or mass effect is present. The ventricular system is unremarkable. The basal cisterns are patent. No extra-axial collections are present. There are no findings to suggest acute dural sinus thrombosis or acute territorial infarct. There is no acute calvarial fracture. Small mucous retention cysts within the maxillary sinuses are incidentally noted. There are trace secretions within the left sphenoid sinus. IMPRESSION: No acute intracranial findings. 03/15/23 17:51 MR brain wo con Stat FINDINGS: No acute territorial infarct. No acute intracranial hemorrhage. No midline shift or mass effect. The territorial lawson-white matter differentiation is maintained throughout. Age-related cerebral volume loss. Periventricular and subcortical white matter T2 signal intensity, consistent with chronic microangiopathy. The visualized orbits appear grossly unremarkable. The calvarium is intact. The visualized paranasal sinuses and mastoid air cells are grossly clear. IMPRESSION: No acute territorial infarct. No acute intracranial hemorrhage. No midline shift or mass effect. Hospital Course (1) AMS (altered mental status): Patient had presented with intermittent confusion, increased tremulousness, brain fog and fatigue have been ongoing for the past week. Workup including brain MRI, CBC, chem panel, TSH, Lyme panel, 25OH vit D, B12/folate all WNL. Head CT, CXR clear. No evidence of UTI. Dr. Blanca had discussed the case wtih Dr. Grupo Simental from [facility], who was familiar with patient's case from his consultation on 02/18/23. He argued against changing to ceftriaxone because we have no microbiological data from [facility] (there was no wound culture or surgical debridement performed and there were blood cultures that were negative) and a previous wound culture from over the summer had grown Enterobacter, so with ceftriaxone there was the possibility of amp-C inducibility and treatment failure. After discussing the risks and benefits of alternatives, Zosyn 4.5gm IV q6hrs was recommended. Although this dosing is frequent at home, he only had ten days of treatment left. The family was now concerned for any antibiotic and prefers to hold off on additional antimicrobial therapies for now until his encephalopathy resolves. His hallucinations, dizziness, and tremors were thought to be a combination of ertapenem side effect, infection and a worsening of his known REM sleep disorder in the setting of untreated SHANNON and bupropion use, which was held. ID recommendations noted No antibiotics for now I discussed with Neurology on (03/21/2023) and they recommended to start me latonin in the evening. Do not use Haldol. If needed for agitation, clonazepam 0.5 as needed can be used. Bupropion restarted as EEG did not show seizure. Also if melatonin not helpful, recommend pramipexole 0.25 HS 03/24 Pt is now much improved , able to get rest / some sleep for the past few days. Will continue HS melatonin for now and monitor vit B12 deficiency - cont. suplement vit D - cont. supplement weekly 50,000 units (last dose given on 03/19 in the hospital) PT/OT eval obtained in anticipation of DC (2) Osteomyelitis: As above Negative inflammatory markers at this point. Follow-up with his primary care physician closely after discharge. ID evaluation and recommendations noted - ID consulted - Exam is benign and mild erosive changes on the XR are not obviously infectious in nature. No wound or micro studies to guide us. Outcomes of medical management for distal phalangyeal osteomyelitis tend to be very poor anyway and amputation is always recommended. In his case, I suspect he does not need any abx therapy and would suggest we hold any further abx. A repeat ESR can be obtained in a month to ensure no changes depending on his clinical course. No antibiotics at this time (3) HTN (hypertension): Continue Toprol, lisinopril HCTZ currently on hold, can be resumed Monitor (4) CAD (coronary artery disease): H/o stents in 2006, 2009. No CP, stable. Continue aspirin, statin, beta gela (5) Anxiety: (6) Depression: Chronic Continue venlafaxine per home regimen Bupropion resumed as above (7) SHANNON (obstructive sleep apnea): Intolerant to CPAP. Previous Provider had reviewed this with family earlier. Outpatient pulm/Sleep medicine followup recommended on discharge PCP: Dr. Soliz ([place]) Total Time Total Time Spent Total Time Spent (In Minutes): 40 Discharge Plan Discharge Items Patient Disposition: Home - Self-Care Reason For Visit: ALTERED MENTAL STATUS Discharge Diagnosis: Encephalopathy likely secondary to antibiotic - ertapenem toe OM Activity: Per Instructions section Non-emergency contact: Primary Care Provider and Specialist Call non-emergency contact if: you have any medication questions and your symptoms worsen Follow-up/Referrals: Tyler Soliz DO [Primary Care Provider] - 04/02/23 8:40 am (with [facility]) Diet: Heart Healthy Addtl Attending Provider Instructions: Follow up with your primary care physician within 1 week. The appointment was scheduled for you for 04/02/2023. Do not use any more antibiotics - such as ertapenem and make sure to monitor your foot for any signs of infection or inflammation. Your vit. D level was low - take supplement weekly as prescribed and discuss further with your primary care doctor. Your vit. B12 was also on low side and therefore recommend taking the supplement. You have been using melatonin to help with your sleep - you can obtain this over the counter. It is also recommended that you follow up with sleep medicine. Pending Studies at Discharge: No Stand-Alone Forms: My [facility] [email or web address], Smoking Cessation Medications and DC Order Prescriptions: New ergocalciferol (vitamin D2) 1,250 mcg (50,000 unit) Capsule 50,000 unit PO Q7D@0900 Qty: 5 0RF cyanocobalamin (vitamin B-12) 500 mcg Tablet 1,000 mcg PO QAM Qty: 10 0RF Continued atorvastatin 40 mg tablet 40 mg PO HS venlafaxine 37.5 mg capsule,extended release 24hr 37.5 mg PO DAILY lisinopril-hydrochlorothiazide 20-12.5 mg tablet 1 tab PO BID ibuprofen 800 mg tablet 800 mg PO TID metoprolol succinate 50 mg tablet extended release 24 hr 50 mg PO DAILY omeprazole 40 mg capsule,delayed release(DR/EC) 40 mg PO DAILY bupropion HCl 100 mg tablet 100 mg PO DAILY docusate sodium 100 mg capsule 100 mg PO DAILY PRN (Reason: Constipation) allopurinol 300 mg tablet 300 mg PO DAILY aspirin 81 mg Tablet 81 mg PO DAILY Discontinued ertapenem 1 gram Recon Soln 1 g IV DAILY Rx Instructions: has 2 week remaining Discharge Orders: Discharge Order (Routine); Ordered 03/25/23 Ordered By: Jesus Simmons Admission Data Admit Date/Time: 03/17/23 08:06 Attending Provider: Jesus Simmons Admit Provider: Erin Blanca Primary Care Provider: Tyler Soliz Other Providers: Erin Blanca ; Tony Walsh ; Remy Bravo ; Hitesh Cristina ; Rashawn Wu I. ; Kapil Candelario II ; Arelis Burks ; Keegan Rivera ; Gurdeep Cruz ; Kirt Silva ; Jesus Simmons ; Tita Benson I.
== END 2023-03-25 13:44 | disposition home health service (06) | DRG 92 ==
LOC: ED 15:10 → 2N 15:10 → SUATTDRO 18:39 → 2N 20:22 → SUATTDRO 03-17 08:06 → 2N 03-19 04:24